=== PATIENT | male | born 1970 | race Caucasian/White ===

== ENCOUNTER → 2016-04-05 | Outpatient (REF) | payer MEDICAID ==
[~2016-04-05] MED LIST: /AUGM875TA; /WARF5TA; ADVAIR; BABY81CH; Coumadin; GEMF600T; LISI10TA4; METF500T4; PERC5TAB8; PRIL20CA; THERGRAN; ZEBE5TAB; ZYRT10TA6; albuterol; lovaza; mucinex
[2016-04-05 12:17] LABS: ANION GAP 11 MEQ/L (8-16); BLOOD UREA NITROGEN 12 MG/DL (7-18); CALCIUM LEVEL 8.8 MG/DL (8.5-10.1); CARBON DIOXIDE LEVEL 25 MEQ/L (21-32); CHLORIDE LEVEL 101 MEQ/L (98-107); CREATININE FOR GFR 0.77 MG/DL (0.70-1.30); GLOMERULAR FILTRATION RATE > 60.0 (>60); GLUCOSE, FASTING 240 MG/DL (70-105); POTASSIUM SERUM 4.9 MEQ/L (3.5-5.1); SODIUM LEVEL 137 MEQ/L (136-145)
== END ==
LOC: M SFHCPLAZ 10:17
PROVIDERS: ATTEND Family Medicine
DX: E11.8 Type 2 diabetes mellitus with unspecified complications (principal)

== ENCOUNTER → 2016-05-03 | Outpatient (REF) | payer MEDICAID | LOC: M SFHCPLAZ 07:48 | PROVIDERS: ATTEND Family Medicine | DX: I69.30 Unspecified sequelae of cerebral infarction (principal); Z51.81 Encounter for therapeutic drug level monitoring; Z79.01 Long term (current) use of anticoagulants ==

== ENCOUNTER → 2016-07-13 | Outpatient (CLI) | payer MEDICAID ==
[2016-07-13 14:13] LABS: ANION GAP 7 MEQ/L (8-16); BLOOD UREA NITROGEN 10 MG/DL (7-18); CALCIUM LEVEL 8.7 MG/DL (8.5-10.1); CARBON DIOXIDE LEVEL 33 MEQ/L (21-32); CHLORIDE LEVEL 100 MEQ/L (98-107); CREATININE FOR GFR 0.67 MG/DL (0.70-1.30); GLOMERULAR FILTRATION RATE > 60.0 (>60); GLUCOSE, FASTING 142 MG/DL (70-105); POTASSIUM SERUM 4.4 MEQ/L (3.5-5.1); SODIUM LEVEL 140 MEQ/L (136-145)
== END ==
LOC: M SMT 08:22
PROVIDERS: ATTEND Family Medicine
DX: E11.8 Type 2 diabetes mellitus with unspecified complications (principal)

== ENCOUNTER → 2016-10-17 | Outpatient (REF) | payer MEDICAID | LOC: M SFHCPLAZ 08:53 | PROVIDERS: ATTEND Family Medicine | DX: Z86.718 Personal history of other venous thrombosis and embolism (principal); Z79.01 Long term (current) use of anticoagulants; Z51.81 Encounter for therapeutic drug level monitoring; E11.8 Type 2 diabetes mellitus with unspecified complications ==

== ENCOUNTER → 2016-10-20 | Outpatient (CLI) | payer MEDICAID | LOC: M SMT 08:46 | PROVIDERS: ATTEND Family Medicine | DX: E11.8 Type 2 diabetes mellitus with unspecified complications (principal) ==

== ENCOUNTER → 2016-10-20 | Outpatient (CLI) | payer MEDICAID ==
[2016-10-20 13:58] LABS: ALBUMIN 3.4 GM/DL (3.2-5.2); ANION GAP 7 MEQ/L (8-16); BLOOD UREA NITROGEN 7 MG/DL (7-18); CALCIUM LEVEL 8.7 MG/DL (8.5-10.1); CARBON DIOXIDE LEVEL 31 MEQ/L (21-32); CHLORIDE LEVEL 101 MEQ/L (98-107); CREATININE FOR GFR 0.79 MG/DL (0.70-1.30); GLOMERULAR FILTRATION RATE > 60.0 (>60); GLUCOSE, FASTING 234 MG/DL (70-105); PHOSPHORUS LEVEL 3.7 MG/DL (2.5-4.9); POTASSIUM SERUM 4.7 MEQ/L (3.5-5.1); SODIUM LEVEL 139 MEQ/L (136-145)
== END ==
LOC: M SMT 08:43
PROVIDERS: ATTEND Internal Medicine Nephrology
DX: N18.1 Chronic kidney disease, stage 1 (principal); E11.22 Type 2 diabetes mellitus with diabetic chronic kidney disease

== ENCOUNTER → 2016-10-26 | Outpatient (CLI) | payer MEDICAID ==
[2016-10-26 14:05] LABS: FREE T4 1.07 NG/DL (0.76-1.46)
== END ==
LOC: M SMT 10:02
PROVIDERS: ATTEND Internal Medicine Nephrology
DX: R00.0 Tachycardia, unspecified (principal)

== ENCOUNTER → 2017-02-02 | Outpatient (REF) | payer MEDICAID ==
[2017-02-02 12:06] LABS: ANION GAP 11 MEQ/L (8-16); BLOOD UREA NITROGEN 13 MG/DL (7-18); CALCIUM LEVEL 8.7 MG/DL (8.5-10.1); CARBON DIOXIDE LEVEL 29 MEQ/L (21-32); CHLORIDE LEVEL 102 MEQ/L (98-107); CREATININE FOR GFR 0.66 MG/DL (0.70-1.30); GLOMERULAR FILTRATION RATE > 60.0 (>60); GLUCOSE, FASTING 197 MG/DL (70-105); POTASSIUM SERUM 4.9 MEQ/L (3.5-5.1); SODIUM LEVEL 142 MEQ/L (136-145)
== END ==
LOC: M SFHCPLAZ 08:45
PROVIDERS: ATTEND Family Medicine
DX: E11.8 Type 2 diabetes mellitus with unspecified complications (principal)

== ENCOUNTER → 2017-04-06 | Outpatient (CLI) | payer MEDICAID | LOC: M RAD 16:10 | DX: J06.9 Acute upper respiratory infection, unspecified (principal); B97.89 Other viral agents as the cause of diseases classified elsewhere; R00.0 Tachycardia, unspecified ==

== ENCOUNTER → 2017-05-26 | Outpatient (CLI) | payer MEDICAID | LOC: M RAD 10:03 | DX: J06.9 Acute upper respiratory infection, unspecified (principal) | CPT/HCPCS: 71046 ==

== ENCOUNTER → 2017-06-12 | Outpatient (CLI) | payer MEDICAID ==
[2017-06-12 13:49] LABS: ESTIMATED AVERAGE GLUCOSE 203 MG/DL (60-110); HEMOGLOBIN A1c 8.7 %
[2017-06-12 14:04] LABS: ANION GAP 9 MEQ/L (8-16); BLOOD UREA NITROGEN 8 MG/DL (7-18); CALCIUM LEVEL 8.7 MG/DL (8.5-10.1); CARBON DIOXIDE LEVEL 31 MEQ/L (21-32); CHLORIDE LEVEL 100 MEQ/L (98-107); GLOMERULAR FILTRATION RATE > 60.0 (>60); GLUCOSE, FASTING 163 MG/DL (70-100); POTASSIUM SERUM 4.9 MEQ/L (3.5-5.1); SODIUM LEVEL 140 MEQ/L (136-145)
== END ==
LOC: M SMT 08:56
DX: E11.8 Type 2 diabetes mellitus with unspecified complications (principal)
CPT/HCPCS: 83036

== ENCOUNTER → 2017-06-12 | Outpatient (CLI) | payer MEDICAID ==
[2017-06-12 13:31] LABS: BASO % 0.3 % (0.0-1.0); EOS # 0.2 10^3/uL (0.0-0.50); EOS % 1.7 % (0.0-3.0); HEMATOCRIT 51.8 % (42.0-52.0); HEMOGLOBIN 16.4 g/dl (14.0-18.0); IMMATURE GRANULOCYTE % 0.3 % (0-3.0); LYMPH # 3.1 10^3/uL (1.5-4.5); LYMPH % 23.5 % (24.0-44.0); MEAN CORPUSCULAR HEMOGLOBIN 29.3 pg (27.0-33.0); MEAN CORPUSCULAR HGB CONC 31.7 g/dl (32.0-36.5); MEAN CORPUSCULAR VOLUME 92.7 fl (80.0-96.0); MONO % 7.6 % (0.0-5.0); NEUTROPHILS # 8.8 10^3/uL (1.8-7.7); NEUTROPHILS % 66.6 % (36.0-66.0); PLATELET COUNT, AUTOMATED 263 10^3/uL (150-450); RED BLOOD COUNT 5.59 10^6/uL (4.30-6.10); RED CELL DISTRIBUTION WIDTH 14.3 % (11.5-14.5); WHITE BLOOD COUNT 13.2 10^3/uL (4.0-10.0)
[2017-06-12 13:35] LABS: APPEARANCE, URINE CLEAR (CLEAR); BACTERIA, URINE AUTO NEGATIVE (NEGATIVE); BILIRUBIN, URINE AUTO NEGATIVE (NEGATIVE); BLOOD, URINE BLOOD 1+ (NEGATIVE); COLOR, URINE YELLOW (YELLOW); GLUCOSE, URINE (UA) AUTO NEGATIVE (NEGATIVE); KETONE, URINE AUTO NEGATIVE (NEGATIVE); LEUKOCYTE ESTERASE, URINE AUTO NEGATIVE (NEGATIVE); MUCUS, URINE SMALL (NEGATIVE); NITRITE, URINE AUTO NEGATIVE (NEGATIVE); PROTEIN, URINE AUTO 2+ mg/dL (NEGATIVE); RBC, URINE AUTO 2 /HPF (0-3); SPECIFIC GRAVITY URINE AUTO 1.014 (1.002-1.035); SQUAMOUS EPITHELIAL CELL UR AU 0 /HPF (0-6); UROBILINOGEN, URINE AUTO 0.2 mg/dL (0.0-2.0); WBC, URINE AUTO 4 /HPF (0-3)
[2017-06-12 13:49] LABS: TOTAL 25(OH) VITAMIN D 34.4 NG/ML (30.0-100.0)
[2017-06-12 14:00] LABS: ALBUMIN 3.3 GM/DL (3.2-5.2); ANION GAP 7 MEQ/L (8-16); BLOOD UREA NITROGEN 8 MG/DL (7-18); CALCIUM LEVEL 8.5 MG/DL (8.5-10.1); CARBON DIOXIDE LEVEL 31 MEQ/L (21-32); CHLORIDE LEVEL 102 MEQ/L (98-107); CREATININE FOR GFR 0.71 MG/DL (0.70-1.30); GLOMERULAR FILTRATION RATE > 60.0 (>60); GLUCOSE, FASTING 164 MG/DL (70-100); MAGNESIUM LEVEL 1.7 MG/DL (1.8-2.4); POTASSIUM SERUM 4.9 MEQ/L (3.5-5.1); SODIUM LEVEL 140 MEQ/L (136-145); URIC ACID 5.3 MG/DL (3.5-7.2)
[2017-06-12 14:34] LABS: CREATININE, URINE 97.8 MG/DL; MAU/CREAT RATIO 799.5 MCG/MG (0.0-30.0)
== END ==
LOC: M SMT 08:59
DX: E11.22 Type 2 diabetes mellitus with diabetic chronic kidney disease (principal); N18.1 Chronic kidney disease, stage 1; E55.9 Vitamin D deficiency, unspecified; I12.9 Hypertensive chronic kidney disease with stage 1 through stage 4 chronic kidney disease, or unspecified chronic kidney disease
CPT/HCPCS: 83735

== ENCOUNTER → 2017-08-03 | Outpatient (REF) | payer MEDICAID | LOC: M SFHCPLAZ 13:12 | DX: L02.415 Cutaneous abscess of right lower limb (principal) | CPT/HCPCS: 87186 ==

== ENCOUNTER 2017-09-12 10:33 | Inpatient (IN) | payer MEDICAID ==
[~2017-09-12 10:33] MED LIST changes: -/AUGM875TA; -/WARF5TA; -ADVAIR; -BABY81CH; -Coumadin; +ENOXAPARIN 40 MG/0.4 ML SYRINGE (J1650) SC; -GEMF600T; -LISI10TA4; -METF500T4; -PERC5TAB8; -PRIL20CA; -THERGRAN; -ZEBE5TAB; -ZYRT10TA6; -albuterol; -lovaza; -mucinex
[2017-09-12 11:17] LABS: BASO % 0.3 % (0.0-1.0); EOS # 0.2 10^3/uL (0.0-0.50); EOS % 1.3 % (0.0-3.0); HEMATOCRIT 52.4 % (42.0-52.0); HEMOGLOBIN 16.2 g/dl (13.5-17.5); IMMATURE GRANULOCYTE % 0.5 % (0-3.0); LYMPH # 3.5 10^3/uL (1.5-4.5); LYMPH % 25.1 % (24.0-44.0); MEAN CORPUSCULAR HEMOGLOBIN 28.2 pg (27.0-33.0); MEAN CORPUSCULAR HGB CONC 30.9 g/dl (32.0-36.5); MEAN CORPUSCULAR VOLUME 91.3 fl (80.0-96.0); NEUTROPHILS # 9.1 10^3/uL (1.8-7.7); NEUTROPHILS % 65.8 % (36.0-66.0); PLATELET COUNT, AUTOMATED 246 10^3/uL (150-450); RED BLOOD COUNT 5.74 10^6/uL (4.30-6.10); RED CELL DISTRIBUTION WIDTH 14.6 % (11.5-14.5); WHITE BLOOD COUNT 13.8 10^3/uL (4.0-10.0)
[2017-09-12] MEDS: methylPREDNISolone INJ 125 MG/2 ML VIAL (J2930) IV ×2 (11:18→21:08)
[2017-09-12 11:19] LABS: SUSPECT SAMPLE POS FLAG
[2017-09-12 11:21] LABS: PROTHROMBIN TIME 28.9 SECONDS (12.4-14.5)
[2017-09-12] MEDS: IPRATROPIUM 0.5MG/ALBUTEROL 2.5MG INH SOL UD 3ML (DUONEB)(J7620) NEB ×5 (11:26→20:00)
[2017-09-12 11:31] LABS: ABG TOTAL CO2 35.2 MEQ/L (22.0-29.0); ABG pH (ARTERIAL) 7.336 UNITS (7.350-7.450); ALBUMIN 2.9 GM/DL (3.2-5.2); ALBUMIN/GLOBULIN RATIO 0.66 (1.00-1.93); ALKALINE PHOSPHATASE 88 U/L (45-117); ALT/SGPT 60 U/L (12-78); ANION GAP 6 MEQ/L (8-16); AST/SGOT 26 U/L (7-37); BILIRUBIN,DIRECT 0.1 MG/DL (0.0-0.2); BILIRUBIN,TOTAL 0.3 MG/DL (0.2-1.0); BLOOD UREA NITROGEN 12 MG/DL (7-18); CALCIUM LEVEL 7.9 MG/DL (8.5-10.1); CARBON DIOXIDE LEVEL 31 MEQ/L (21-32); CHLORIDE LEVEL 101 MEQ/L (98-107); CPK CREATINE PHOSPHOKINASE 306 U/L (39-308); CREATININE FOR GFR 0.74 MG/DL (0.70-1.30); GLOMERULAR FILTRATION RATE > 60.0 (>60); GLUCOSE, FASTING 266 MG/DL (70-100); POTASSIUM SERUM 4.4 MEQ/L (3.5-5.1); SODIUM LEVEL 138 MEQ/L (136-145); TOTAL PROTEIN 7.3 GM/DL (6.4-8.2); TROPONIN I 0.03 NG/ML (< 0.10)
[2017-09-12 11:32] LABS: ABG BASE EXCESS 4.9 (-2.0-2.0); ABG HCO3 33.2 MEQ/L (22.0-26.0); ABG O2 SATURATION 84.5 % (95.0-99.0); ABG STANDARD HCO3 28.4 MEQ/L (22.0-26.0)
[2017-09-12 11:36] LABS: CK-MB VALUE MASS 9.1 NG/ML (<3.6); MB/CK RELATIVE INDEX 2.97 (< OR =4); NT-PRO BNP 147 PG/ML (<125)
[2017-09-12 11:37] LABS: LACTIC ACID SEPSIS PROTOCOL 1.7 MMOL/L (0.4-2.0)
[2017-09-12 11:43] LABS: ABG PARTIAL PRESSURE CO2 63.6 mmHg (35.0-45.0); ABG PARTIAL PRESSURE O2 49.9 mmHg (75.0-100.0)
[2017-09-12] MEDS: MOXIFLOXACIN HCL 400 MG in APPROPRIATE DILUENT 1 EA IV (12:54)
[2017-09-12] MEDS ORDERED: IPRATROPIUM 0.5MG/ALBUTEROL 2.5MG INH SOL UD 3ML (DUONEB)(J7620) NEB (13:30)
[2017-09-12] MEDS ORDERED: ONDANSETRON 4MG/2ML VIAL (J2405) IV (13:30)
[2017-09-12] MEDS ORDERED: zolPIDEM TARTRATE 5 MG TAB PO (13:30)
[2017-09-12] MEDS ORDERED: ACETAMINOPHEN 500 MG TAB PO (13:30)
[2017-09-12] MEDS ORDERED: GLUCOSE 4 GM CHEW TABLET PO (14:15)
[2017-09-12] MEDS ORDERED: DEXTROSE 50% 50 ML SYRINGE IV (14:15)
[2017-09-12] MEDS ORDERED: GLUCAGON FOR INJ 1 MG VIAL (J1610) SC (14:15)
[2017-09-12 16:01] LABS: BEDSIDE GLUCOSE 445 MG/DL (70-105)
[2017-09-12] MEDS: metFORMIN (GLUCOPHAGE) 1000 MG TABLET PO (17:15)
[2017-09-12] MEDS: PANTOPRAZOLE 40MG TAB (PROTONIX) PO (17:16)
[2017-09-12] MEDS: HumaLOG INSULIN (NovoLOG) PER UNIT SC (17:16)
[2017-09-12 20:23] LABS: BEDSIDE GLUCOSE 366 MG/DL (70-105)
[2017-09-12] MEDS: ATORVASTATIN 20 MG TAB PO (21:08)
[2017-09-12] MEDS: LEVEMIR (INSULIN DETEMIR) 1 UNITS/0.01ML SC (21:09)
[2017-09-13] MEDS: IPRATROPIUM 0.5MG/ALBUTEROL 2.5MG INH SOL UD 3ML (DUONEB)(J7620) NEB ×7 (00:07→23:25)
[2017-09-13] MEDS: methylPREDNISolone INJ 125 MG/2 ML VIAL (J2930) IV ×3 (04:10→20:55)
[2017-09-13] MEDS: MOXIFLOXACIN 400 MG TAB PO (05:40)
[2017-09-13 05:59] LABS: BASO % 0.1 % (0.0-1.0); HEMATOCRIT 51.3 % (42.0-52.0); HEMOGLOBIN 15.9 g/dl (13.5-17.5); IMMATURE GRANULOCYTE % 0.5 % (0-3.0); LYMPH # 1.2 10^3/uL (1.5-4.5); LYMPH % 9.1 % (24.0-44.0); MEAN CORPUSCULAR HEMOGLOBIN 28.2 pg (27.0-33.0); MEAN CORPUSCULAR VOLUME 91.1 fl (80.0-96.0); MONO # 0.2 10^3/uL (0.0-0.8); MONO % 1.2 % (0.0-5.0); NEUTROPHILS # 11.6 10^3/uL (1.8-7.7); NEUTROPHILS % 89.1 % (36.0-66.0); PLATELET COUNT, AUTOMATED 235 10^3/uL (150-450); RED BLOOD COUNT 5.63 10^6/uL (4.30-6.10); RED CELL DISTRIBUTION WIDTH 14.2 % (11.5-14.5)
[2017-09-13 06:29] LABS: ALBUMIN 2.8 GM/DL (3.2-5.2); ALBUMIN/GLOBULIN RATIO 0.65 (1.00-1.93); ALKALINE PHOSPHATASE 82 U/L (45-117); ALT/SGPT 55 U/L (12-78); ANION GAP 5 MEQ/L (8-16); AST/SGOT 18 U/L (7-37); BILIRUBIN,TOTAL 0.5 MG/DL (0.2-1.0); BLOOD UREA NITROGEN 16 MG/DL (7-18); CALCIUM LEVEL 7.8 MG/DL (8.5-10.1); CARBON DIOXIDE LEVEL 35 MEQ/L (21-32); CHLORIDE LEVEL 99 MEQ/L (98-107); CREATININE FOR GFR 0.68 MG/DL (0.70-1.30); GLOMERULAR FILTRATION RATE > 60.0 (>60); GLUCOSE, FASTING 335 MG/DL (70-100); MAGNESIUM LEVEL 1.7 MG/DL (1.8-2.4); SODIUM LEVEL 139 MEQ/L (136-145); TOTAL PROTEIN 7.1 GM/DL (6.4-8.2)
[2017-09-13 06:37] LABS: POTASSIUM SERUM 5.4 MEQ/L (3.5-5.1)
[2017-09-13] MEDS: TIOTROPIUM INHALER/CAPSULE (SPIRIVA) INH (08:23)
[2017-09-13] MEDS: HumaLOG INSULIN (NovoLOG) PER UNIT SC ×5 (08:54→20:56)
[2017-09-13] MEDS: LEVEMIR (INSULIN DETEMIR) 1 UNITS/0.01ML SC ×2 (08:55→20:56)
[2017-09-13] MEDS: metFORMIN (GLUCOPHAGE) 1000 MG TABLET PO (08:55)
[2017-09-13] MEDS: MULTIVITAMINS/MINERALS THERAP 1 TAB PO (08:55)
[2017-09-13] MEDS: LISINOPRIL 10 MG TAB PO (08:55)
[2017-09-13] MEDS: PANTOPRAZOLE 40MG TAB (PROTONIX) PO (08:55)
[2017-09-13] MEDS ORDERED: ENOXAPARIN 40 MG/0.4 ML SYRINGE (J1650) SC (09:00)
[2017-09-13 10:45] LABS: INR 1.69; PROTHROMBIN TIME 20.4 SECONDS (12.4-14.5)
[2017-09-13 11:09] LABS: BEDSIDE GLUCOSE 377 MG/DL (70-105)
[2017-09-13] MEDS ORDERED: ISOVUE-370 76% 100ML VIAL (Q9967) As Ordered (16:32)
[2017-09-13] MEDS: WARFARIN SOD 2.5 MG TAB PO (17:49)
[2017-09-13] MEDS: WARFARIN SOD 5 MG TAB PO (17:49)
[2017-09-13 18:31] LABS: BEDSIDE GLUCOSE CONFIRMATION 632 MG/DL (LESS THAN 200)
[2017-09-13 19:52] LABS: BEDSIDE GLUCOSE 567 MG/DL (70-105)
[2017-09-13] MEDS: ATORVASTATIN 20 MG TAB PO (20:55)
[2017-09-13 23:42] LABS: BEDSIDE GLUCOSE 458 MG/DL (70-105)
[2017-09-14] MEDS: IPRATROPIUM 0.5MG/ALBUTEROL 2.5MG INH SOL UD 3ML (DUONEB)(J7620) NEB ×6 (04:00→23:19)
[2017-09-14] MEDS: methylPREDNISolone INJ 125 MG/2 ML VIAL (J2930) IV (04:56)
[2017-09-14] MEDS: MOXIFLOXACIN 400 MG TAB PO (05:20)
[2017-09-14] MEDS: TIOTROPIUM INHALER/CAPSULE (SPIRIVA) INH (07:23)
[2017-09-14 07:30] LABS: BEDSIDE GLUCOSE 334 MG/DL (70-105)
[2017-09-14] MEDS: PANTOPRAZOLE 40MG TAB (PROTONIX) PO (08:53)
[2017-09-14] MEDS: MULTIVITAMINS/MINERALS THERAP 1 TAB PO (08:53)
[2017-09-14] MEDS: HumaLOG INSULIN (NovoLOG) PER UNIT SC ×5 (08:55→21:38)
[2017-09-14] MEDS: LEVEMIR (INSULIN DETEMIR) 1 UNITS/0.01ML SC ×2 (08:55→21:38)
[2017-09-14] MEDS: NICOTINE 21MG/24HR 1 EA TRANSDERMAL TD (08:55)
[2017-09-14] MEDS: predniSONE 20 MG TAB PO (09:00)
[2017-09-14 09:42] LABS: BASO % 0.1 % (0.0-1.0); HEMATOCRIT 48.3 % (42.0-52.0); HEMOGLOBIN 15.5 g/dl (13.5-17.5); IMMATURE GRANULOCYTE % 0.6 % (0-3.0); LYMPH % 5.4 % (24.0-44.0); MEAN CORPUSCULAR HEMOGLOBIN 28.5 pg (27.0-33.0); MEAN CORPUSCULAR HGB CONC 32.1 g/dl (32.0-36.5); MEAN CORPUSCULAR VOLUME 88.8 fl (80.0-96.0); MONO # 0.6 10^3/uL (0.0-0.8); MONO % 3.3 % (0.0-5.0); NEUTROPHILS # 16.3 10^3/uL (1.8-7.7); NEUTROPHILS % 90.6 % (36.0-66.0); PLATELET COUNT, AUTOMATED 250 10^3/uL (150-450); RED BLOOD COUNT 5.44 10^6/uL (4.30-6.10); RED CELL DISTRIBUTION WIDTH 14.3 % (11.5-14.5)
[2017-09-14 09:50] LABS: INR 1.49; PROTHROMBIN TIME 18.4 SECONDS (12.4-14.5)
[2017-09-14 10:04] LABS: ALBUMIN 2.9 GM/DL (3.2-5.2); ALBUMIN/GLOBULIN RATIO 0.81 (1.00-1.93); ALKALINE PHOSPHATASE 74 U/L (45-117); ALT/SGPT 49 U/L (12-78); ANION GAP 8 MEQ/L (8-16); AST/SGOT 12 U/L (7-37); BILIRUBIN,TOTAL 0.5 MG/DL (0.2-1.0); BLOOD UREA NITROGEN 24 MG/DL (7-18); CALCIUM LEVEL 7.4 MG/DL (8.5-10.1); CARBON DIOXIDE LEVEL 34 MEQ/L (21-32); CHLORIDE LEVEL 96 MEQ/L (98-107); CREATININE FOR GFR 0.75 MG/DL (0.70-1.30); GLOMERULAR FILTRATION RATE > 60.0 (>60); GLUCOSE, FASTING 326 MG/DL (70-100); MAGNESIUM LEVEL 1.8 MG/DL (1.8-2.4); SODIUM LEVEL 138 MEQ/L (136-145); TOTAL PROTEIN 6.5 GM/DL (6.4-8.2)
[2017-09-14 11:35] LABS: BEDSIDE GLUCOSE 557 MG/DL (70-105)
[2017-09-14 11:44] LABS: BEDSIDE GLUCOSE 563 MG/DL (70-105)
[2017-09-14 16:31] LABS: BEDSIDE GLUCOSE 410 MG/DL (70-105)
[2017-09-14] MEDS: WARFARIN SOD 2.5 MG TAB PO (17:09)
[2017-09-14] MEDS: WARFARIN SOD 5 MG TAB PO (17:09)
[2017-09-14 20:39] LABS: BEDSIDE GLUCOSE 467 MG/DL (70-105)
[2017-09-14] MEDS: ATORVASTATIN 20 MG TAB PO (21:37)
[2017-09-15] MEDS: IPRATROPIUM 0.5MG/ALBUTEROL 2.5MG INH SOL UD 3ML (DUONEB)(J7620) NEB ×7 (04:00→23:12)
[2017-09-15] MEDS: MOXIFLOXACIN 400 MG TAB PO (05:35)
[2017-09-15 06:35] LABS: BASO % 0.1 % (0.0-1.0); EOS % 0.1 % (0.0-3.0); HEMOGLOBIN 16.4 g/dl (13.5-17.5); IMMATURE GRANULOCYTE % 0.6 % (0-3.0); INR 1.64; LYMPH # 3.3 10^3/uL (1.5-4.5); LYMPH % 20.6 % (24.0-44.0); MEAN CORPUSCULAR HEMOGLOBIN 28.9 pg (27.0-33.0); MEAN CORPUSCULAR HGB CONC 32.2 g/dl (32.0-36.5); MEAN CORPUSCULAR VOLUME 89.8 fl (80.0-96.0); MONO # 1.4 10^3/uL (0.0-0.8); MONO % 8.9 % (0.0-5.0); NEUTROPHILS % 69.7 % (36.0-66.0); PLATELET COUNT, AUTOMATED 249 10^3/uL (150-450); PROTHROMBIN TIME 19.9 SECONDS (12.4-14.5); RED BLOOD COUNT 5.68 10^6/uL (4.30-6.10); RED CELL DISTRIBUTION WIDTH 14.5 % (11.5-14.5); WHITE BLOOD COUNT 15.8 10^3/uL (4.0-10.0)
[2017-09-15 06:46] LABS: ALBUMIN 2.9 GM/DL (3.2-5.2); ALBUMIN/GLOBULIN RATIO 0.71 (1.00-1.93); ALKALINE PHOSPHATASE 73 U/L (45-117); ALT/SGPT 53 U/L (12-78); ANION GAP 4 MEQ/L (8-16); AST/SGOT 22 U/L (7-37); BILIRUBIN,TOTAL 0.4 MG/DL (0.2-1.0); BLOOD UREA NITROGEN 21 MG/DL (7-18); CALCIUM LEVEL 7.1 MG/DL (8.5-10.1); CARBON DIOXIDE LEVEL 35 MEQ/L (21-32); CHLORIDE LEVEL 100 MEQ/L (98-107); CREATININE FOR GFR 0.75 MG/DL (0.70-1.30); GLOMERULAR FILTRATION RATE > 60.0 (>60); GLUCOSE, FASTING 262 MG/DL (70-100); MAGNESIUM LEVEL 1.7 MG/DL (1.8-2.4); POTASSIUM SERUM 4.2 MEQ/L (3.5-5.1); SODIUM LEVEL 139 MEQ/L (136-145)
[2017-09-15] MEDS: TIOTROPIUM INHALER/CAPSULE (SPIRIVA) INH (08:14)
[2017-09-15] MEDS: NICOTINE 21MG/24HR 1 EA TRANSDERMAL TD (09:00)
[2017-09-15] MEDS: predniSONE 20 MG TAB PO (09:29)
[2017-09-15] MEDS: PANTOPRAZOLE 40MG TAB (PROTONIX) PO (09:30)
[2017-09-15] MEDS: MULTIVITAMINS/MINERALS THERAP 1 TAB PO (09:30)
[2017-09-15] MEDS: HumaLOG INSULIN (NovoLOG) PER UNIT SC ×4 (09:30→21:00)
[2017-09-15] MEDS: LEVEMIR (INSULIN DETEMIR) 1 UNITS/0.01ML SC ×2 (09:31→21:00)
[2017-09-15 11:50] LABS: BEDSIDE GLUCOSE 258 MG/DL (70-105)
[2017-09-15] MEDS: LISINOPRIL 10 MG TAB PO (12:54)
[2017-09-15 16:32] LABS: BEDSIDE GLUCOSE 548 MG/DL (70-105)
[2017-09-15 17:35] LABS: BEDSIDE GLUCOSE 586 MG/DL (70-105)
[2017-09-15] MEDS: WARFARIN SOD 5 MG TAB PO (18:07)
[2017-09-15] MEDS: WARFARIN SOD 2.5 MG TAB PO ×2 (18:07→18:08)
[2017-09-15 19:06] LABS: BEDSIDE GLUCOSE CONFIRMATION 541 MG/DL (LESS THAN 200)
[2017-09-15 20:16] LABS: BEDSIDE GLUCOSE 416 MG/DL (70-105)
[2017-09-15] MEDS: ATORVASTATIN 20 MG TAB PO (20:59)
[2017-09-16] MEDS: IPRATROPIUM 0.5MG/ALBUTEROL 2.5MG INH SOL UD 3ML (DUONEB)(J7620) NEB ×2 (03:59→08:05)
[2017-09-16 06:04] LABS: BASO % 0.1 % (0.0-1.0); EOS % 0.4 % (0.0-3.0); HEMATOCRIT 50.8 % (42.0-52.0); IMMATURE GRANULOCYTE % 0.4 % (0-3.0); LYMPH # 3.5 10^3/uL (1.5-4.5); LYMPH % 31.4 % (24.0-44.0); MEAN CORPUSCULAR HEMOGLOBIN 28.4 pg (27.0-33.0); MEAN CORPUSCULAR HGB CONC 31.5 g/dl (32.0-36.5); MEAN CORPUSCULAR VOLUME 90.1 fl (80.0-96.0); MONO # 1.2 10^3/uL (0.0-0.8); MONO % 10.3 % (0.0-5.0); NEUTROPHILS # 6.5 10^3/uL (1.8-7.7); NEUTROPHILS % 57.4 % (36.0-66.0); PLATELET COUNT, AUTOMATED 237 10^3/uL (150-450); RED BLOOD COUNT 5.64 10^6/uL (4.30-6.10); RED CELL DISTRIBUTION WIDTH 14.4 % (11.5-14.5); WHITE BLOOD COUNT 11.3 10^3/uL (4.0-10.0)
[2017-09-16 06:20] LABS: ALBUMIN 2.8 GM/DL (3.2-5.2); ALKALINE PHOSPHATASE 68 U/L (45-117); ALT/SGPT 63 U/L (12-78); ANION GAP 7 MEQ/L (8-16); AST/SGOT 26 U/L (7-37); BILIRUBIN,TOTAL 0.5 MG/DL (0.2-1.0); BLOOD UREA NITROGEN 19 MG/DL (7-18); CALCIUM LEVEL 7.2 MG/DL (8.5-10.1); CARBON DIOXIDE LEVEL 34 MEQ/L (21-32); CHLORIDE LEVEL 103 MEQ/L (98-107); CREATININE FOR GFR 0.66 MG/DL (0.70-1.30); GLOMERULAR FILTRATION RATE > 60.0 (>60); GLUCOSE, FASTING 213 MG/DL (70-100); MAGNESIUM LEVEL 1.8 MG/DL (1.8-2.4); POTASSIUM SERUM 3.9 MEQ/L (3.5-5.1); SODIUM LEVEL 144 MEQ/L (136-145); TOTAL PROTEIN 6.8 GM/DL (6.4-8.2)
[2017-09-16 06:27] LABS: INR 1.94; PROTHROMBIN TIME 22.8 SECONDS (12.4-14.5)
[2017-09-16] MEDS: MOXIFLOXACIN 400 MG TAB PO (06:41)
[2017-09-16] MEDS: TIOTROPIUM INHALER/CAPSULE (SPIRIVA) INH (08:05)
[2017-09-16] MEDS: predniSONE 20 MG TAB PO (08:59)
[2017-09-16] MEDS: MULTIVITAMINS/MINERALS THERAP 1 TAB PO (08:59)
[2017-09-16] MEDS: LISINOPRIL 10 MG TAB PO (08:59)
[2017-09-16] MEDS: PANTOPRAZOLE 40MG TAB (PROTONIX) PO (08:59)
[2017-09-16] MEDS: HumaLOG INSULIN (NovoLOG) PER UNIT SC (09:00)
[2017-09-16] MEDS: LEVEMIR (INSULIN DETEMIR) 1 UNITS/0.01ML SC (09:00)
[2017-09-16] MEDS: NICOTINE 21MG/24HR 1 EA TRANSDERMAL TD (09:00)
[2017-09-18 11:42] LABS: BEDSIDE GLUCOSE > 600 MG/DL (70-105)
[2017-09-18 11:42] LABS: BEDSIDE GLUCOSE > 600 MG/DL (70-105)
== END 2017-09-16 12:15 | disposition home health service (06) | DRG 133 ==
LOC: M ED 10:33 → M ED INP 13:23 → M MSPAV 15:35
DX: J96.21 Acute and chronic respiratory failure with hypoxia (principal); Z99.81 Dependence on supplemental oxygen; J44.9 Chronic obstructive pulmonary disease, unspecified; E66.01 Morbid (severe) obesity due to excess calories; Z68.43 Body mass index [BMI] 50.0-59.9, adult; I10 Essential (primary) hypertension; E11.9 Type 2 diabetes mellitus without complications; G47.33 Obstructive sleep apnea (adult) (pediatric); T38.0X5A Adverse effect of glucocorticoids and synthetic analogues, initial encounter; F17.210 Nicotine dependence, cigarettes, uncomplicated; E78.5 Hyperlipidemia, unspecified; Z86.718 Personal history of other venous thrombosis and embolism; Z79.4 Long term (current) use of insulin; Z79.52 Long term (current) use of systemic steroids; Z79.899 Other long term (current) drug therapy; Z79.01 Long term (current) use of anticoagulants; Z91.19 Patient's noncompliance with other medical treatment and regimen

== ENCOUNTER → 2017-11-14 | Outpatient (REF) | payer MEDICAID | LOC: M SFHCPLAZ 09:02 | DX: Z79.01 Long term (current) use of anticoagulants (principal); Z86.718 Personal history of other venous thrombosis and embolism ==

== ENCOUNTER → 2017-12-31 | Outpatient (REF) | payer MEDICAID ==
[2017-12-31 18:34] LABS: ALBUMIN 3.6 GM/DL (3.2-5.2); ANION GAP 8 MEQ/L (8-16); BASO % 0.3 % (0.0-1.0); BLOOD UREA NITROGEN 10 MG/DL (7-18); CALCIUM LEVEL 8.6 MG/DL (8.5-10.1); CARBON DIOXIDE LEVEL 32 MEQ/L (21-32); CHLORIDE LEVEL 102 MEQ/L (98-107); CREATININE FOR GFR 0.64 MG/DL (0.70-1.30); EOS # 0.3 10^3/uL (0.0-0.50); EOS % 1.8 % (0.0-3.0); GLOMERULAR FILTRATION RATE > 60.0 (>60); GLUCOSE, FASTING 109 MG/DL (70-100); HEMOGLOBIN 15.4 g/dl (13.5-17.5); IMMATURE GRANULOCYTE % 0.5 % (0-3.0); LYMPH # 4.5 10^3/uL (1.5-4.5); MEAN CORPUSCULAR HEMOGLOBIN 29.6 pg (27.0-33.0); MEAN CORPUSCULAR HGB CONC 32.8 g/dl (32.0-36.5); MEAN CORPUSCULAR VOLUME 90.4 fl (80.0-96.0); MONO # 1.1 10^3/uL (0.0-0.8); MONO % 7.8 % (0.0-5.0); NEUTROPHILS # 8.1 10^3/uL (1.8-7.7); NEUTROPHILS % 57.6 % (36.0-66.0); PHOSPHORUS LEVEL 3.7 MG/DL (2.5-4.9); PLATELET COUNT, AUTOMATED 279 10^3/uL (150-450); POTASSIUM SERUM 4.4 MEQ/L (3.5-5.1); SODIUM LEVEL 142 MEQ/L (136-145); WHITE BLOOD COUNT 14.1 10^3/uL (4.0-10.0)
[2017-12-31 18:43] LABS: APPEARANCE, URINE HAZY (CLEAR); BACTERIA, URINE AUTO NEGATIVE (NEGATIVE); BILIRUBIN, URINE AUTO NEGATIVE (NEGATIVE); BLOOD, URINE BLOOD NEGATIVE (NEGATIVE); COLOR, URINE AMBER (YELLOW); GLUCOSE, URINE (UA) AUTO NEGATIVE (NEGATIVE); KETONE, URINE AUTO NEGATIVE (NEGATIVE); LEUKOCYTE ESTERASE, URINE AUTO NEGATIVE (NEGATIVE); MUCUS, URINE SMALL (NEGATIVE); NITRITE, URINE AUTO NEGATIVE (NEGATIVE); PROTEIN, URINE AUTO 3+ mg/dL (NEGATIVE); RBC, URINE AUTO 1 /HPF (0-3); SPECIFIC GRAVITY URINE AUTO 1.024 (1.002-1.035); SQUAMOUS EPITHELIAL CELL UR AU 0 /HPF (0-6); UROBILINOGEN, URINE AUTO 0.2 mg/dL (0.0-2.0); WBC, URINE AUTO 2 /HPF (0-3)
[2017-12-31 18:53] LABS: ESTIMATED AVERAGE GLUCOSE 192 MG/DL (60-110); HEMOGLOBIN A1c 8.3 %
[2017-12-31 19:18] LABS: MAU/CREAT RATIO 934.9 MCG/MG (0.0-30.0)
== END ==
LOC: M SFHCPLAZ 14:47
DX: E11.21 Type 2 diabetes mellitus with diabetic nephropathy (principal)

== ENCOUNTER → 2018-01-21 | Outpatient (REF) | payer MEDICAID | LOC: M SFHCPLAZ 12:47 | DX: R05 Cough (principal) | CPT/HCPCS: 87184 ==

== ENCOUNTER → 2018-04-08 | Outpatient (REF) | payer MEDICAID ==
[~2018-04-08] MED LIST changes: +/AUGM875TA; +/WARF5TA; +ADVAIR; +ALBU83IN INH; +ALBU83IN NEB; +ATOR80TA59 PO; +AVEL1TAB3 PO; +BABY81CH; +COUM10TA PO; +Coumadin; +DRIS50003 PO; -ENOXAPARIN 40 MG/0.4 ML SYRINGE (J1650) SC; +FLON1SPR; +FLON1SPR NARES; +GEMF600T; +INSULANT SC; +LANTINJ4 SC; +LIPI80TA PO; +LISI10TA4; +LISI10TA4 PO; +METF10004 PO; +METF500T4; +MUCI600T37 PO; +PERC5TAB8; +PRED10PA PO; +PRED10TA2 PO; +PRIL20CA; +PROAAER10 INH; +SPIR1CAP INH; +THERGRAN; +VICT18IN SC; +VITA50005 PO; +VITMTA PO; +ZEBE5TAB; +ZYRT10TA6; +albuterol; +lovaza; +mucinex
[2018-04-08 14:07] LABS: BASO % 0.2 % (0.0-1.0); EOS # 0.2 10^3/uL (0.0-0.50); EOS % 1.6 % (0.0-3.0); HEMOGLOBIN 15.7 g/dl (13.5-17.5); LYMPH # 3.3 10^3/uL (1.5-4.5); LYMPH % 26.7 % (24.0-44.0); MEAN CORPUSCULAR HEMOGLOBIN 29.4 pg (27.0-33.0); MEAN CORPUSCULAR VOLUME 91.8 fl (80.0-96.0); MONO % 7.8 % (0.0-5.0); NEUTROPHILS # 7.9 10^3/uL (1.8-7.7); NEUTROPHILS % 63.4 % (36.0-66.0); PLATELET COUNT, AUTOMATED 269 10^3/uL (150-450); RED BLOOD COUNT 5.34 10^6/uL (4.30-6.10); WHITE BLOOD COUNT 12.5 10^3/uL (4.0-10.0)
[2018-04-08 14:11] LABS: ALBUMIN 3.4 GM/DL (3.2-5.2); ALT/SGPT 39 U/L (12-78); BILIRUBIN,TOTAL 0.4 MG/DL (0.2-1.0); BLOOD UREA NITROGEN 13 MG/DL (7-18); CALCIUM LEVEL 8.7 MG/DL (8.5-10.1); CARBON DIOXIDE LEVEL 31 MEQ/L (21-32); CHLORIDE LEVEL 96 MEQ/L (98-107); CREATININE FOR GFR 0.72 MG/DL (0.70-1.30); GLOMERULAR FILTRATION RATE > 60.0 (>60); GLUCOSE, FASTING 224 MG/DL (70-100); POTASSIUM SERUM 4.1 MEQ/L (3.5-5.1); SODIUM LEVEL 138 MEQ/L (136-145)
[2018-04-08 14:14] LABS: INR 1.6; PROTHROMBIN TIME 19.3 SECONDS (12.1-14.4)
[2018-04-08 14:51] LABS: HEMOGLOBIN A1c 9.9 %
== END ==
LOC: M SFHCPLAZ 10:54
PROVIDERS: ATTEND Internal Medicine
DX: Z51.81 Encounter for therapeutic drug level monitoring (principal); Z79.899 Other long term (current) drug therapy; J06.9 Acute upper respiratory infection, unspecified; E11.21 Type 2 diabetes mellitus with diabetic nephropathy

== ENCOUNTER 2018-05-06 15:25 | Inpatient (IN) | payer MEDICAID ==
[~2018-05-06] VITALS: Ht 157.5 cm; Wt 139.0 kg
[~2018-05-06 15:25] MED LIST changes: -FLON1SPR
[2018-05-06] MEDS ORDERED: JANU100T PO (15:40)
[2018-05-06] MEDS ORDERED: WARF-18 PO (15:40)
[2018-05-06] MEDS ORDERED: VITA50005 (15:40)
[2018-05-06] MEDS ORDERED: WARF-22 PO (15:40)
[2018-05-06 16:18] LABS: BASO % 0.2 % (0.0-1.0); EOS # 0.1 10^3/uL (0.0-0.50); HEMATOCRIT 46.2 % (42.0-52.0); HEMOGLOBIN 14.3 g/dl (13.5-17.5); LYMPH # 2.5 10^3/uL (1.5-4.5); LYMPH % 23.4 % (24.0-44.0); MEAN CORPUSCULAR HEMOGLOBIN 29.4 pg (27.0-33.0); MEAN CORPUSCULAR VOLUME 94.9 fl (80.0-96.0); MONO # 0.7 10^3/uL (0.0-0.8); MONO % 6.3 % (0.0-5.0); NEUTROPHILS # 7.5 10^3/uL (1.8-7.7); NEUTROPHILS % 68.8 % (36.0-66.0); PLATELET COUNT, AUTOMATED 251 10^3/uL (150-450); RED BLOOD COUNT 4.87 10^6/uL (4.30-6.10); WHITE BLOOD COUNT 10.8 10^3/uL (4.0-10.0)
[2018-05-06 16:30] LABS: INR 1.71; PROTHROMBIN TIME 20.4 SECONDS (12.1-14.4)
[2018-05-06 16:48] LABS: ALBUMIN 3.2 GM/DL (3.2-5.2); ALT/SGPT 50 U/L (12-78); BILIRUBIN,DIRECT 0.1 MG/DL (0.0-0.2); BILIRUBIN,TOTAL 0.3 MG/DL (0.2-1.0); BLOOD UREA NITROGEN 9 MG/DL (7-18); CALCIUM LEVEL 8.1 MG/DL (8.5-10.1); CARBON DIOXIDE LEVEL 40 MEQ/L (21-32); CHLORIDE LEVEL 94 MEQ/L (98-107); CPK CREATINE PHOSPHOKINASE 446 U/L (39-308); CREATININE FOR GFR 0.77 MG/DL (0.70-1.30); GLOMERULAR FILTRATION RATE > 60.0 (>60); GLUCOSE, FASTING 286 MG/DL (70-100); NT-PRO BNP 40 PG/ML (<125); POTASSIUM SERUM 4.3 MEQ/L (3.5-5.1); SODIUM LEVEL 137 MEQ/L (136-145); TOTAL PROTEIN 7.1 GM/DL (6.4-8.2); TROPONIN I < 0.02 NG/ML (< 0.10)
[2018-05-06] MEDS ORDERED: IPRATROPIUM 0.5MG/ALBUTEROL 2.5MG INH SOL UD 3ML (DUONEB)(J7620) NEB ONE (17:00)
[2018-05-06] MEDS ORDERED: ISOVUE-370 76% 100ML VIAL (Q9967) As Ordered ONE (17:11)
[2018-05-06 17:30] LABS: LIPASE 134 U/L (73-393)
[2018-05-06] MEDS ORDERED: methylPREDNISolone INJ 125 MG/2 ML VIAL (J2930) IV ONE (18:15)
--- NOTE | 2018-05-06 18:29 | REP ---
PORTABLE CHEST: AP portable view of the chest is performed and compared to prior study of 09/12/2017. There is no change since the prior exam. There is cardiomegaly. There are increased interstitial opacities bilaterally appearing similar to prior exam. Mediastinal silhouette is unchanged. IMPRESSION: Cardiomegaly and increased interstitial opacities bilaterally appearing similar to the prior study of 09/12/2017. Electronically Signed by Jarad Cooney MD 05/07/2018 10:30 A
[2018-05-06] MEDS ORDERED: ACETAMINOPHEN TAB 650MG DOSE (2X325MG) PO PRN (19:45)
[2018-05-06] MEDS ORDERED: DEXTROSE 50% 50 ML SYRINGE IV PRN (19:45)
[2018-05-06] MEDS ORDERED: GLUCOSE 4 GM CHEW TABLET PO PRN (19:45)
[2018-05-06] MEDS ORDERED: GLUCAGON FOR INJ 1 MG VIAL (J1610) SC PRN (19:45)
[2018-05-06] MEDS ORDERED: IPRATROPIUM 0.02% SOLN 0.5MG/2.5 ML NEB INH PRN (19:45)
[2018-05-06] MEDS ORDERED: LEVALBUTEROL 1.25 MG/0.5 ML CONCENTRATE NEB INH PRN (19:45)
[2018-05-06] MEDS ORDERED: SYMB16INH INH (19:51)
[2018-05-06] MEDS ORDERED: COUM1TAB17 PO (19:51)
[2018-05-06] MEDS ORDERED: MUCI600T31 PO (19:55)
[2018-05-06] MEDS ORDERED: PEPT262S PO (19:55)
[2018-05-06] MEDS ORDERED: APAP500T10 PO (19:55)
[2018-05-06] MEDS ORDERED: AZITHROMYCIN INJ 500 MG, VIAL MATE ADAPTER 1 EACH in D5W 250 ML IV ONE (21:00)
[2018-05-06] MEDS ORDERED: HumaLOG INSULIN (NovoLOG) PER UNIT SC SCH (21:00)
--- NOTE | 2018-05-06 21:23 | HPEPDOC ---
[facility] Medical History & Physical Date of Admission May 06, 2018 Primary Care Physician: A Other Provider Admitting/dictating: Bob Pro M.D. Attending Physician: DEANDRE TRAMMELL MD History and Physical CHIEF COMPLAINT: Shortness of breath HISTORY OF PRESENT ILLNESS: Patient is a 47-year-old man. He has history of COPD on home oxygen 2-3 L. He also uses CPAP at night, diabetes, hypertension, hyperlipidemia, DVT on Coumadin, morbid obesity and multiple CVAs in the past. Comes in complaining of 2 weeks history of progressively worsening shortness of breath associated with cough productive of whitish sputum. He denies any fever, chills, no chest pains, no palpitations. He denies any recent sick contacts. He has used [id number] medication for cough, but with little or no improvement. He became worse with his symptoms today and his who accompanied him insisted that he needed medical attention. In the course of interview while volunteering at a history that she's been noticing occasional blood with stool in the toilet. Patient initially denied that, but later corroborated the information. No change in his urinary habits. In the emergency room he was evaluated with an unchanged chest x-ray from previous done in August body CTA chest revealed left lower lobe infiltrate with moderate pericardial effusion. PAST MEDICAL HISTORY: Per HPI PAST SURGICAL HISTORY: Knee surgery. SOCIAL HISTORY: He is and lives with his . He smokes a pack a day cigarette since age 8, denies alcohol, denies illicit drug use. FAMILY HISTORY: No significant history of heart disease in the family. ALLERGIES: Please see below. REVIEW OF SYSTEMS: He denies any fever, chills, no chest pains, no palpitations. He denies any recent sick contacts. No change in his urinary habits. Other system reviewed negative. A 12 point review of system was done HOME MEDICATIONS: Please see below. PHYSICAL EXAMINATION: VITAL SIGNS: Temperature 98, pulse 128, respiratory rate 28, blood pressure 127/62, pulse oximetry 93% on 3L. GENERAL APPEARANCE: Mobidly obese middle aged man, uncomfortable. He is not pale, anicteric and afebrile HEENT: Atraumatic. Neck: Supple. LUNGS: Clear to auscultation bilaterally. CARDIOVASCULAR: S1 and 2 heard, no murmurs. ABDOMEN: Obese, soft, not tender, not distended. Bowel sounds normoactive. MUSCULOSKELETAL: Apparently within normal limits. EXTREMITIES: No pedal edema, 2+ bilateral pedal pulses noted. NEUROLOGICAL: Awake, alert, oriented 3. PSYCHIATRIC: Normal affect LABORATORY DATA: See below. IMAGING: Chest x-ray: Cardiomegaly and increased interstitial opacities bilaterally appearance similar to the prior study in August 2017. CTA chest: No PE EKG: Sinus tachycardia, no acute ST or T-wave changes. MICROBIOLOGY: Please see below. DIAGNOSES: 1. Acute on chronic respiratory failure likely secondary to COPD exacerbation and pneumonia 2. COPD exacerbation 3. Pneumonia. 4. Pericardial effusion. 5. GI bleed. PLAN: 1. I will admit patient to the ICU under care of Dr. Trammell 2. Acute on chronic respiratory failure likely secondary to COPD exacerbation and pneumonia: Patient will continue with ipratropium nebulizations and levalbuterol nebulizations O2 supplementation via nasal cannula and he can use his home CPAP machine, Solu-Medrol 60 mg every 8. I'll start patient also on ceftriaxone IV and his azithromycin, please follow CBC and blood cultures. 3. Pericardial effusion. Thoracic consult placed. GI bleed. He has occasional blood in stool. Coumadin held Gen. surgery consult placed. No GI coverage today. Coumadin has been held and FOBT requested. Please follow FOBT and if negative, restart Coumadin. Patient will be seen by general surgery tomorrow. I would have him on pantoprazole 40 mg daily and every 12 hours hemoglobin/hematocrit check. 4. DVT prophylaxis, TEDs. Coumadin held for now. 5. Diabetes. Patient will be on sliding scale and consistent carb diet with fingerstick glucose monitoring. 6. Hyperlipidemia. Resume by mouth medications. 7. Hypertension. Resume home medications. 8. Extensive counseling on tobacco cessation done and lasted over 10 minutes. 9. Further management will be per patient's clinical course. Vital Signs Vital Signs Date Time Temp Pulse Resp B/P (MAP) Pulse Ox O2 Delivery O2 Flow Rate FiO2 05/06/18 19:15 128 28 127/62 (83) 93 Nasal Cannula 3.0 05/06/18 15:38 98.8 Laboratory Data Labs 24H Laboratory Tests 2 05/06/18 15:51: Immature Granulocyte % (Auto) 0.3, White Blood Count 10.8H, Red Blood Count 4.87, Hemoglobin 14.3, Hematocrit 46.2, Mean Corpuscular Volume 94.9, Mean Corpuscular Hemoglobin 29.4, Mean Corpuscular Hemoglobin Concent 31.0L, Red Cell Distribution Width 12.9, Platelet Count 251, Neutrophils (%) (Auto) 68.8H, Lymphocytes (%) (Auto) 23.4L, Monocytes (%) (Auto) 6.3H, Eosinophils (%) (Auto) 1.0, Basophils (%) (Auto) 0.2, Neutrophils # (Auto) 7.5, Lymphocytes # (Auto) 2.5, Monocytes # (Auto) 0.7, Eosinophils # (Auto) 0.1, Basophils # (Auto) 0.0, Nucleated Red Blood Cells % (auto) 0.0, Prothrombin Time 20.4H, Prothromb Time International Ratio 1.71, Anion Gap 3L, Glomerular Filtration Rate > 60.0, La ctic Acid Level 1.6, Calcium Level 8.1L, Aspartate Amino Transf (AST/SGOT) 24, Alanine Aminotransferase (ALT/SGPT) 50, Alkaline Phosphatase 101, Total Bilirubin 0.3, Direct Bilirubin 0.1, Total Creatine Kinase 446H, Creatine Kinase MB 9.0H, Creatine Kinase MB Relative Index 2.00, Troponin I < 0.02, VP-[id number]-[id number]-Type Natriuretic Peptide 40, Total Protein 7.1, Albumin 3.2, Albumin/Globulin Ratio 0.82L, Lipase 134, Thyroid Stimulating Hormone (TSH) 1.710 CBC/BMP Laboratory Tests 05/06/18 15:51 Red Blood Count 4.87, Mean Corpuscular Volume 94.9, Mean Corpuscular Hemoglobin 29.4, Mean Corpuscular Hemoglobin Concent 31.0 L, Red Cell Distribution Width 12.9, Neutrophils (%) (Auto) 68.8 H, Lymphocytes (%) (Auto) 23.4 L, Monocytes (%) (Auto) 6.3 H, Eosinophils (%) (Auto) 1.0, Basophils (%) (Auto) 0.2, Neutrophils # (Auto) 7.5, Lymphocytes # (Auto) 2.5, Monocytes # (Auto) 0.7, Eo sinophils # (Auto) 0.1, Basophils # (Auto) 0.0 Microbiology Microbiology 05/06/18 Blood Culture, Received Pending 05/06/18 Respiratory Virus Panel (PCR) ([facility]) - Final, Complete Home Medications Scheduled Atorvastatin Calcium (Lipitor) 80 Mg Tab, 80 MG PO QPM Budesonide/Formoterol (Symbicort 160-4.5 Mcg/Act) 60 Puff/Inhaler Aers, 2 PUFF INH BID Insulin Glargine (Lantus) 1 Units/0.01 Ml Susp, 90 UNITS SC BID Lisinopril (Lisinopril) 10 Mg Tab, 10 MG PO DAILY Metformin Hydrochloride (Metformin HCl) 1,000 Mg Tab, 1,000 MG PO BID Multivitamins *[facility] STOCKED* (Thera M Plus *[facility] STOCKED*) 1 Tab Tab, 1 TAB PO DAILY Sitagliptin Phosphate (Januvia) 100 Mg Tab, 100 MG PO DAILY Vitamin D (Drisdol) 50,000 Unit Cap, 50,000 UNIT PO Q2WK EVERY OTHER SUNDAY Warfarin Sod (Warfarin Sodium) 2.5 Mg Tab, 2.5 MG PO Q2D TAKES WITH 10MG TABLET TO EQUAL 12.5MG EVERY OTHER DAY. Warfarin Sod (Warfarin Sodium) 10 Mg Tab, 10 MG PO DAILY PATIENT TAKES WITH 2.5 MG TABLET TO EQUAL 12.5MG EVERY OTHER DAY, ALTERNATES WITH 5MG TABLET TO EQUAL 15MG EVERY OTHER DAY Warfarin Sod (Coumadin) 5 Mg Tab, 5 MG PO Q2D TAKES WITH 10MG TABLET TO EQUAL 15MG EVERY OTHER DAY. Scheduled PRN Acetaminophen (APAP Extra Strength) 500 Mg Tab, 500 MG PO Q6H PRN for PAIN Albuterol Sulfate (Proair Hfa) 108 Mcg/Act Aer, 2 PUFF INH QID PRN for SHORTNESS OF BREATH Albuterol Sulfate (Albuterol Sulfate) 2.5 Mg/3 Ml Nebu, 2.5 MG INH QID PRN for SHORTNESS OF BREATH Bismuth Subsalicylate (Pepto-Bismol) 262 Mg/15 Ml Jaye, 30 ML PO ASDIRECTED PRN for INDIGESTION Fluticasone Propionate (Flonase Allergy Relief) 50 Mcg/Act Spr, 2 SPRAYS NARES DAILY PRN for ALLERGIES Guaifenesin (Mucinex) 600 Mg Tab, 600 MG PO DAILY PRN for COUGH Allergies Coded Allergies: No Known Drug Allergy (Verified Allergy, Unknown, 07/02/12) BOB PRO MD May 06, 2018 19:44
[2018-05-06 21:43] VITALS: BP 171/85
[2018-05-06 21:43] LABS: HEMATOCRIT 46.3 % (42.0-52.0); HEMOGLOBIN 14.3 g/dl (13.5-17.5)
[2018-05-06 21:50] VITALS: BP 150/80
[2018-05-06] MEDS ORDERED: LABETALOL HCL 100 MG/20 ML VIAL IV STA (21:52)
[2018-05-06] MEDS ORDERED: diphenhydrAMINE INJ 50MG/ML VIAL (J1200) IV STA (21:54)
[2018-05-06 22:02] LABS: ABG BASE EXCESS 6.5 (-2.0-2.0); ABG HCO3 37.2 MEQ/L (22.0-26.0); ABG O2 SATURATION 99.4 % (95.0-99.0); ABG PARTIAL PRESSURE O2 230.4 mmHg (75.0-100.0); ABG STANDARD HCO3 30.5 MEQ/L (22.0-26.0); ABG TOTAL CO2 39.7 MEQ/L (22.0-29.0); ABG pH (ARTERIAL) 7.261 UNITS (7.350-7.450)
[2018-05-06 22:03] LABS: ABG PARTIAL PRESSURE CO2 84.5 mmHg (35.0-45.0)
--- NOTE | 2018-05-06 22:43 | ECHO ---
DATE OF PROCEDURE: 05/06/2018 REFERRING PHYSICIAN: Dr. Aleman INDICATION: Pericardial effusion. Height 157 cm, weight 141 kg. DIMENSIONS: IVS: 1.3 LV: 4.9 LVPW: 1.3 Descending aorta: 3.4 LA: 4.6 Aorta: 3.6 Mitral E wave velocity: 118 E prime septal: 11.5 E prime lateral: 15.9 FINDINGS: Study is of very limited technical quality corresponding to patient's body habitus. Left ventricle is of normal size. I estimate the overall left ventricular systolic function to be normal or near normal based on very limited views. Right ventricle was poorly seen but does not appear grossly enlarged. Left atrium is severely enlarged. Right atrium was poorly visualized but also appears at least mildly enlarged. Aortic valve is sclerotic but mobility seems to be at least mostly preserved. Mitral and tricuspid valves appear grossly normal. Pulmonic valve was not well seen. There is circumferential pericardial effusion. It is largest in diameter adjacent to the right atrium when it measures up to 2 cm but for the most of the circumference it is less than 1 cm. I do not appreciate any diastolic collapse of any of four cardiac chambers. Inferior vena cava was not seen. Aortic root is normal, aortic arch and abdominal aorta were not visualized. Doppler interrogation of aortic valve reveals no stenosis or insufficiency. There is mild mitral insufficiency. No visualized tricuspid insufficiency is present. Evaluation of diastolic function is inconclusive. There is only one wave on mitral inflow, most likely due to summation pattern as the patient is tachycardiac with ventricular rate between 125 and 130 beats per minute. E prime velocities both in septal and lateral mitral annulus are quite preserved. CONCLUSIONS: 1. Study is of markedly limited technical quality. 2. Normal left ventricular (LV) size with probably normal or near normal systolic function. 3. No hemodynamically significant valvular disease. 4. Approximately moderate circumferential pericardial effusion without any signs of hemodynamic compromise. COMMENT: Subacute bacterial endocarditis (SBE) prophylaxis is not recommended. I would still consider clinical characteristics in judging significance of pericardial effusion as this study is markedly limited considering the patient's morbid obesity. The results of the study were communicated with Dr. Pro.
[2018-05-06 22:58] VITALS: BP 114/54; O2SAT 93
[2018-05-06] MEDS: ATORVASTATIN 20 MG TAB PO SCH (23:24)
[2018-05-07] VITALS (11 sets, daily range): BP systolic 106–138; BP diastolic 61–92; O2SAT 88
[2018-05-07] MEDS: cefTRIAXone SOD 1 GM in D5W MINI-BAG PLUS 50 ML IV SCH ×2 (00:06→20:12)
[2018-05-07] MEDS: HumaLOG INSULIN (NovoLOG) PER UNIT SC SCH ×5 (00:07→20:45)
[2018-05-07 00:44] LABS: ABG pH (ARTERIAL) 7.355 UNITS (7.350-7.450)
[2018-05-07 00:45] LABS: ABG BASE EXCESS 6.2 (-2.0-2.0); ABG O2 SATURATION 96.1 % (95.0-99.0); ABG PARTIAL PRESSURE CO2 62.3 mmHg (35.0-45.0); ABG PARTIAL PRESSURE O2 85.1 mmHg (75.0-100.0); ABG STANDARD HCO3 30.1 MEQ/L (22.0-26.0); ABG TOTAL CO2 35.9 MEQ/L (22.0-29.0)
[2018-05-07] MEDS: methylPREDNISolone INJ 125 MG/2 ML VIAL (J2930) IV SCH ×3 (02:26→17:41)
[2018-05-07 05:19] LABS: BASO % 0.3 % (0.0-1.0); HEMOGLOBIN 14.6 g/dl (13.5-17.5); LYMPH # 1.4 10^3/uL (1.5-4.5); LYMPH % 12.2 % (24.0-44.0); MEAN CORPUSCULAR HEMOGLOBIN 29.3 pg (27.0-33.0); MEAN CORPUSCULAR HGB CONC 31.1 g/dl (32.0-36.5); MEAN CORPUSCULAR VOLUME 94.4 fl (80.0-96.0); MONO # 0.1 10^3/uL (0.0-0.8); MONO % 0.8 % (0.0-5.0); NEUTROPHILS % 86.3 % (36.0-66.0); PLATELET COUNT, AUTOMATED 266 10^3/uL (150-450); RED BLOOD COUNT 4.98 10^6/uL (4.30-6.10); WHITE BLOOD COUNT 11.6 10^3/uL (4.0-10.0)
[2018-05-07 05:31] LABS: INR 1.56; PROTHROMBIN TIME 18.9 SECONDS (12.1-14.4)
[2018-05-07 05:32] LABS: BLOOD UREA NITROGEN 16 MG/DL (7-18); CARBON DIOXIDE LEVEL 31 MEQ/L (21-32); CHLORIDE LEVEL 100 MEQ/L (98-107); CREATININE FOR GFR 0.74 MG/DL (0.70-1.30); GLOMERULAR FILTRATION RATE > 60.0 (>60); GLUCOSE, FASTING 280 MG/DL (70-100); POTASSIUM SERUM 4.4 MEQ/L (3.5-5.1); SODIUM LEVEL 137 MEQ/L (136-145)
[2018-05-07] MEDS ORDERED: HumaLOG INSULIN (NovoLOG) PER UNIT SC SCH (07:30)
[2018-05-07] MEDS ORDERED: AZITHROMYCIN 250 MG TAB PO SCH (09:00)
[2018-05-07] MEDS ORDERED: LISINOPRIL 10 MG TAB PO SCH (09:00)
[2018-05-07] MEDS: NICOTINE 21MG/24HR 1 EA TRANSDERMAL TD SCH (09:34)
[2018-05-07] MEDS: IPRATROPIUM 0.5MG/ALBUTEROL 2.5MG INH SOL UD 3ML (DUONEB)(J7620) NEB SCH ×5 (09:35→23:46)
[2018-05-07] MEDS: PANTOPRAZOLE 40MG TAB (PROTONIX) PO SCH (09:35)
[2018-05-07 09:37] LABS: HEMOGLOBIN 14.4 g/dl (13.5-17.5)
[2018-05-07] MEDS: LEVEMIR (INSULIN DETEMIR) 1 UNITS/0.01ML SC SCH ×2 (10:40→20:45)
[2018-05-07] MEDS: DOXYCYCLINE HYCLATE 100 MG TAB PO SCH ×2 (10:40→20:12)
--- NOTE | 2018-05-07 10:48 | CR ---
DATE OF CONSULTATION: 05/07/2018 Patient seen at the request of Dr. Aleman and Dr. Pro for a pericardial effusion. Patient is seen approximately 10 hours after admission. When I was consulted last night, I reviewed the CT scan, which showed a very small pericardial effusion and the echocardiogram did not show any compression and showed even a smaller pericardial effusion. I therefore elected to see him this morning. Patient is a 47-year-old white male for whom I get a completely different history than was given last night. When asked why he came to the hospital, he said his called an ambulance but that he does not know why. He denies being short of breath. According to the history that was obtained last night, his thought that he was more progressively short of breath. He denies having a cough or sputum production. He denies fevers, chills or sweats, and denies chest pain or chest pressure. He also denies dysphagia. He states his weight has gone up but has not lost weight. Last night's history states that his has been noticing that he was becoming more short of breath over 2 weeks. She was insisting he needed medical attention. When speaking with the emergency room physician, I was assured that he was in no acute distress. A CAT scan was performed last night looking for a pulmonary embolism, which there was none but with the incidental finding of a small pericardial effusion. It is notably he does not have any chest pain or chest pressure and there is no accompanying pain with sitting up or lying down or other positional changes. He does have known sleep apnea. PAST MEDICAL HISTORY: Chronic obstructive pulmonary disease (COPD) on home oxygen of 2-3 liters. Also on continuous positive airway pressure (CPAP) at night for his obstructive sleep apnea (RAE). Diabetes, hypertension, hyperlipidemia, status post a deep venous thrombosis (DVT) now on Coumadin, morbid obesity, and has had multiple CVAs in the past which have left his right arm weak. PAST SURGICAL HISTORY: Knee surgery. MEDICATIONS AT HOME: - Lipitor 80 mg nightly - Symbicort 160-4.5 2 puffs twice a day - Lantus insulin 90 units subcu twice a day - Lisinopril 10 mg every day - metformin 1,000 mg twice a day - multivitamins every day - Januvia 100 mg every day - Drisdol 50,000 units every 2 weeks - Coumadin 2.5 mg every other day and 10 mg daily - ProAir 2 puffs as needed, shortness of breath - albuterol four times a day as needed, shortness of breath TRAVEL HISTORY: [place] [facility] [place] [facility] and there is no foreign travel history. HABITS: Smokes a pack a day since he was [id number]. [place]. Denies alcohol use or illicit drugs. EXPOSURES: Has a cat at home. No dogs or birds. Has not had any exposure to tuberculosis. OCCUPATIONAL HISTORY: He used to work at a [employer] shop and also on [employer] doing [employer]. He has been disabled for years. There is no convincing asbestos exposure. REVIEW OF SYSTEMS: Eyes: Without diplopia. Without amaurosis fugax. Without prior jaundice. Nose: Without epistaxis. Mouth: Has his own teeth. Respiratory: See history of present illness (HPI). Cardiac: See HPI. No prior history of myocardial infarctions. Gastrointestinal (GI): Without nausea, vomiting, diarrhea or constipation, melena, hematochezia, hematemesis or abdominal pain. There is note in the history last night that his has noted blood in the toilet after his stools. He denies this. Genitourinary (): Without dysuria or hematuria or prior history of renal stones. Endocrine: With diabetes. Without thyroid disease. Neurologic: Status post six transient ischemic attacks (TIAs) which has left his right arm somewhat weakened. Psychiatric: Without pathological anxiety, depression or psychoses. PHYSICAL EXAMINATION: A well-developed, obese, white male, lying comfortably in bed, in no acute distress. Vital Signs: Temperature is 97.8, heart rate 108 in a sinus rhythm, respiratory rate of 22 without the use of accessory muscles, who is 94% saturated on 4 liters nasal cannula and his blood pressure is 130/92. Eyes: Pupils equal, round, and reactive to light. Extraocular intact. Sclerae nonicteric. Nose: Without deformity. Mouth: Shows mucous membranes to be pink and moist. Lips and commissures without lesions. There is no thrush. He has multiple missing teeth. Head is normocephalic. Neck is supple. There is no jugular venous distention. No subcutaneous emphysema. Trachea is midline. I do not appreciate carotid bruits. He has 2+ carotid upstrokes. There is no thyromegaly. No cervical lymphadenopathy. Lungs show equal breath sounds on either side with a full percussion note to the diaphragm. He does have bilateral wheezing in mid to late expiration in both lung thakkar. Cardiac exam is without murmurs, clicks, gallops or rubs. I cannot feel his point of maximum impulse (PMI). S1, S2 are normal. He is obese and his heart sounds are slightly diminished probably due to his obesity not to the pericardial effusion. Abdomen is rotund, obese, tympanitic. Bowel sounds are positive. There is no hepatomegaly, no costovertebral angle (CVA) tenderness that I can feel through his obesity. Extremities: Show no pretibial edema. No calf tenderness. No differential swelling of the upper extremities. Skin is warm, dry and perfused. Without cyanosis or mottling, including that of the nail beds and the knees. Neurologic: Shows II-XII intact along with gross motor and gross sensation intact. Gait is not tested. He has some weakness in his proximal right arm. Psychiatric shows him to be awake and alert, oriented times three with appropriate mood and affect and conversational. His white count this morning is 11.6 with hemoglobin and hematocrit of 14.6 and 47.0, respectively. Platelet count is 266. Differential shows 86% neutrophils, 12% lymphocytes, and 1% monocytes. There are no immature forms and no toxic granulations. His blood gas last night showed a pH of 7.26 with a pCO2 of 85 and a base excess of 6.5; pO2 was 230. This morning's blood gas shows an improvement in his pH to 7.355, with a pCO2 of 62 and pO2 of 85 with the same base excess. This is after a night of bilevel positive airway pressure (BiPAP). His PT/INR 18.9 and 1.56, respectively. Electrolytes this morning are normal with a BUN and creatinine of 16 and 0.74, glucose of 280 and a calcium of 8.0. Yesterday's albumin was 3.2 and TSH was 1.71 within normal limits. Liver function tests were normal including AST, ALT, and alkaline phosphatase. His chest x-ray shows a somewhat globular heart. It is done portably. There is a vague haze in the lower left hemithorax. His right costophrenic angle is sharp. His CT angio also done last night shows mild emphysematous changes in both lung thakkar. There is an infiltrative process in the left lower lobe, which may be just atelectasis. He has ground-glass opacities in the left lower lobe and the right lower lobe. I do not appreciate significant mediastinal lymphadenopathy. There is no hilar lymphadenopathy. There is no pulmonary embolisms seen on the contrast study. He has a small pericardial effusion. Posteriorly the pericardial effusion measures 8 mm on the left and 1.2 cm adjacent to right atrium. Left adrenal has a normal configuration as does the right adrenal. Liver has no intrahepatic lesions and he has no splenomegaly. The pancreas has a normal configuration. His echocardiogram showed a small pericardial effusion again without compressive changes. The images are not terrific due to his body habitus. IMPRESSION: 1. Pericardial effusion and possible pericarditis without tamponade or compression. 2. Chronic obstructive pulmonary disease, hypercapnic. 3. Obstructive sleep apnea. 4. Hypertension. 5. Diabetes. 6. Morbid obesity. PLAN AND DISCUSSION: His pericardial effusion does not need intervention. If we are to treat him for pericarditis, I would suggest starting him on antiinflammatories. He has no chest pain or chest pressure and I would start off with run of the mill nonsteroidal anti-inflammatory drugs (NSAIDs). He does not need steroids. I do not know what the pericardial effusion is due to. I would suggest a cardiology consult to follow what we are presuming to be pericarditis. Possibilities include autoimmune disease, infectious disease including viral and bacterial. I highly doubt this is bacterial. It may be post viral, although he does not give a history of a viral syndrome.
--- NOTE | 2018-05-07 11:07 | CR ---
DATE OF CONSULTATION: 05/07/2018 The patient is a 47-year-old male who presented to the emergency department last night after he was brought in at his 's urging because he seemed like he was having difficulty breathing. The patient states at bedside that he has been using his rescue inhaler and nebulizer more in the last 4 weeks, multiple times during the day. He has also been coughing up brown mucusy sputum. He denies any chest pain, no fevers or chills. Has chronic orthopnea and reports some slight LE edema. Patient also states that he does not wear his CPAP at home and does not use his maintenance inhaler. Per his primary care provider, he has a referral to see [facility] for adjustments to his CPAP. He has a past medical history of chronic obstructive pulmonary disease (COPD) and on 2 to 3 liters of oxygen at home. He has a brother who was sick recently. PAST MEDICAL HISTORY: 1. COPD, on home oxygen at 2 to 3 liters. 2. Obstructive sleep apnea. 3. Diabetes. 4. Hypertension. 5. Hyperlipidemia. 6. History of deep vein thrombosis (DVT), on Coumadin. 7. Morbid obesity. 8. Multiple CVAs in the past. PAST SURGICAL HISTORY: 1. History of knee replacement. SOCIAL HISTORY: He is and lives at home with his . He smokes up to two packs a day since the age of 8. Denies alcohol or illicit drug use. He states that he does not smoke cigarettes while he is on oxygen. 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 It is possible that he may have had a remote history of asbestos exposure in the past, although he is not sure. FAMILY HISTORY: Not applicable. REVIEW OF SYSTEMS: GENERAL: The patient denies any fevers, chills, recent unexpected weight change HEENT: Denies headaches, dizziness, sore throat, CARDIOVASCULAR: Denies any chest pain, pressure, feeling like his heart is racing. RESPIRATORY: Admits to difficulty breathing, as stated in the history of present illness and coughing up brown sputum. GASTROINTESTINAL: Denies any nausea, vomiting or abdominal tenderness. GENITOURINARY: Denies any difficulty urinating, blood in his urine or pain on urination. States that his belly is slightly larger than it usually is. EXTREMITIES: States his legs are a little bit bigger than they usually are. ALLERGIES: AZITHROMYCIN. HOME MEDICATIONS: - Tylenol - albuterol nebulizer - atorvastatin - Symbicort - Flonase - guaifenesin - Lantus 90 units - Lisinopril - metformin - Januvia - vitamin D - warfarin 2.5 mg every 2 days and warfarin 10 mg every day, warfarin 5 mg every 2 days PHYSICAL EXAMINATION: VITAL SIGNS: 98.6, pulse 114, respiratory rate 22, blood pressure 137/66, pulse oximetry 96%. On BiPAP settings of 18/8 his respiratory rate is 18, FiO2 of 35 overnight. GENERAL APPEARANCE: The patient is a morbidly obese, middle aged man resting comfortably in bed. HEENT: Head is normocephalic, atraumatic. Eyes: Sclerae nonicteric. EOMI. Throat with no exudates seen on exam. Mallampati score of 3 to 4. Neck circumference increased. CARDIOVASCULAR: Regular rate and rhythm. Normal S1, S2. No murmurs appreciated on auscultation. LUNGS: Decreased breath sounds, poor air movement posteriorly with few wheezes appreciated anteriorly. No crackles or rhonchi. ABDOMEN: Obese, soft, nontender with mild abdominal distention. Bowel sounds present. MUSCULOSKELETAL: The patient is able to stand but has some difficulty. EXTREMITIES: +1 pitting edema in bilateral lower extremities. NEUROLOGIC: The patient is alert and oriented times three with no focal deficits. PSYCHIATRIC: Normal affect. The patient is confused as to why he is in the hospital and does not feel like he needs to be here. LABORATORY DATA: White blood cell count is 11.6, hemoglobin 14.6, hematocrit 47, platelets 266. Sodium 137, potassium 4.4, chloride 100, bicarbonate 31, BUN 16, creatinine 0.74, glucose 280, pH of 7.35, PO2 of 62.3, PCO2 of 85. Respiratory panel negative. Preliminary blood cultures times one shows gram-positive cocci in clusters. IMAGING: Chest x-ray shows cardiomegaly and increased interstitial opacities bilaterally, appearance similar to prior study in August 2017. CT of the chest has not been read by radiology; however, right lower lobe shows small peripheral ground glass opacity, left upper lobe shows peripheral consolidation. Near hilum in the lingula and RML there is some atelectatic changes and peribronchovascular infiltrate, In left lower lobe there is atelectasis/infiltrate more compared to right. There is small pericardial effusion. No evidence of PE. No significant adenopathy. Electrocardiogram (EKG) shows sinus tachycardia with premature ventricular contractions (PVCs) present. ASSESSMENT AND PLAN: Mr. Chavez is a 47-year-old male presenting with acute on chronic hypoxemic hypercarbic respiratory failure likely secondary to acute COPD exacerbation with possible PNA. We were consulted initially for BiPAP. Patient was on BIPAP at 18/8 with RR of 18 and FiO2 35% with improvement in his hypercarbia. Currently, he is on Rocephin and his prelim blood cultures are positive for gram-pos cocci. - patient was given azithromycin on admission with possible allergic reaction and it was DC. therefore will add on doxycycline for atypical coverage and possible methicillin resistant Staphylococcus aureus (MRSA) coverage. - The patient's initial ABG shows acute on chronic respiratory acidosis with appropriate compensation. His repeat ABG on BIPAP showed improvement. - recommended patient continue BiPAP tabletop qhs at settings 16/8 FiO2 35%. He is not compliant with CPAP however as outpatient and unlikely to be compliant as well while admitted. - changed DuoNeb treatments to standing, and he should be on a maintenance inhaler outpatient. We recommend Spiriva and Breo Ellipta inhalers when he leaves. - he has some mild pitting edema and increased abdominal distension but BNP is low (may be falsely low with his obesity) Less likely to have acute CHF exacerbation as a cause for his decompensation. - He also likely has OHS in addition to RAE given chronic hypercarbia and daytime hypoxemia although may also be due to COPD, however does not have significant emphysematous changes. Suspect he has some chronic respiratory failure due to restriction from his obesity. - We will defer to his primary team for when to restart his Coumadin for his history of DVTs. He does not appear to be compliant as his INR was subtherapeutic on admission. - We also advised smoking cessation for the patient. - patient also with small to mod pericardial effusion on imaging. Cardiology is consulted, appreciate their recs. My faculty preceptor for this patient encounter was physically present during the encounter and was fully available. All aspects of the patient interview, examination, medical decision making process, and medical care plan development were reviewed and approved by the faculty preceptor. The faculty preceptor is aware and concurs with the plan as stated in the body of this note and will attest to such by his/her co-signature. I, Lona Morrison, have seen and conducted independent examination of the patient and agree with the plan as detailed above and discussed during rounds. MTDD
[2018-05-07 12:35] LABS: HEMOGLOBIN 14.3 g/dl (13.5-17.5)
--- NOTE | 2018-05-07 13:34 | REP ---
CT ANGIOGRAM CHEST: TECHNIQUE: Axial contrast enhanced images from the thoracic inlet to the upper abdomen using 100 mL Isovue 370 intravenous contrast material with multiplanar reformations. COMPARISON: 09/13/2017. There is no CT evidence of pulmonary embolism. The study is somewhat limited by patient motion. There is no thoracic aortic aneurysm or dissection. No adenopathy is seen in the chest. Heart is upper limits of normal in size. There is a mild pericardial effusion. No pleural effusion is seen. Perihilar fibro atelectatic change appears similar to the prior study but there is new patchy infiltrate in the left lower lobe. Visualized upper abdominal structures demonstrate a small cyst in the upper pole of the left kidney. IMPRESSION: No CT evidence of pulmonary embolism or aortic dissection. Mild to moderate pericardial effusion. Perihilar fibro atelectatic change. Left lower lobe infiltrate is new since the prior study. Electronically Signed by Jarad Cooney MD 05/07/2018 05:27 P
[2018-05-07 18:02] LABS: HEMATOCRIT 43.1 % (42.0-52.0); HEMOGLOBIN 13.8 g/dl (13.5-17.5)
--- NOTE | 2018-05-07 18:11 | IPNPDOC ---
Text Note Date of Service The patient was seen on 05/07/18. NOTE Subjective: Patient is a 47-year-old male with PMHx of COPD on O2 (2-3L), RAE on CPAP, HTN, DM2, DLP, DVT (on anticoagulation), Multiple CVA's, Morbid obesity who presented to the ER with progressive shortness of breath associated with a productive cough of whitish sputum. In the emergency room, patient was found to be short of breath and was admitted to the hospitalist service for further evaluation and treatment. He was suspected to have a COPD exacerbation and was placed in the ICU for BiPAP support. Pulmonary was consult and for assistance. Patient was seen and examined at the bedside. Patient is seen sitting up in chair in the ICU. He denies chest pain, shortness of breath or palpitations. Denies nausea, vomiting, abdominal pain, consultation, diarrhea or discomfort with urination. Objective: Vitals (See below) General: Lying in bed, no acute distress, comfortable, AAOx3 HEENT: NC, AT CVS: RRR, +S1S2 Lungs: Fair air entry b/l, mild expiratory wheezing, no rhonchi / rales Abdomen: Soft, ND, NT, +BSx4 Extremities: - Edema, - Calf tenderness Assessment and plan: Shortness of breath - likely 2/2 acute COPD exacerbation, possible CAP - Presented to the ER physician as of breath and cough - Physical expiratory wheezing - ABG shows improvement of PCO2 - CT chest 05/07: No CT evidence of pulmonary embolism or aortic dissection. Mild to moderate pericardial effusion. Perihilar fibro atelectatic change. Left lower lobe infiltrate is new since the prior study. - CXR 05/06: Cardiomegaly and increased interstitial opacities bilaterally appearing similar to the prior study of 09/12/2017. - c/w Ceftriaxone and Doxycycline (Day #2) - c/w Solumedrol - c/w Inhaled therapy as ordered - Pulmonary on consultation Pericardial effusion - etiology unclear - ECHO 05/07: moderate circumferential pericardial effusion without any signs of hemodynamic compromise - Will trend CRP / ESR - Will check DENNIS, RF - Cardiothoracic surgery on consultation; currently no plans for intervention RAE on CPAP - Has a CPAP device at home; however is non-compliant - Will change to table top BIPAP device while inpatient; Pulmonary managing settings HTN - BP well controlled - c/w Lisinopril DM2 - c/w ISS and Levemir DLP - c/w Atorvastatin Hx of DVT - Has been on Coumadin for full anticoagulation as an outpatient - Will start Eliquis Multiple CVA's - Has been told to remain on anticoagulation for this - Will start Eliquis Morbid obesity GI prophylaxis - c/w Protonix DVT prophylaxis - Will start full anticoagulation with Eliquis VS,Fishbone, I+O VS, Fishbone, I+O Laboratory Tests 05/06/18 21:24 05/07/18 04:50 Red Blood Count 4.98, Mean Corpuscular Volume 94.4, Mean Corpuscular Hemoglobin 29.3, Mean Corpuscular Hemoglobin Concent 31.1 L, Red Cell Distribution Width 12.8, Neutrophils (%) (Auto) 86.3 H, Lymphocytes (%) (Auto) 12.2 L, Monocytes (%) (Auto) 0.8, Eosinophils (%) (Auto) 0.0, Basophils (%) (Auto) 0.3, Neutrophils # (Auto) 10.0 H, Lymphocytes # (Auto) 1.4 L, Monocytes # (Auto) 0.1, Eosinophils # (Auto) 0.0, Basophils # (Auto) 0.0, Calcium Level 8.0 L 05/07/18 09:05 05/07/18 12:10 Vital Signs Date Time Temp Pulse Resp B/P (MAP) Pulse Ox O2 Delivery O2 Flow Rate FiO2 05/07/18 14:06 118 22 120/71 (87) 90 3.0 05/07/18 12:00 97.5 05/07/18 04:25 BIPAP/CPAP 45 I&O- Last 24 Hours up to 6 AM 05/07/18 06:00 Intake Total 530 ml Output Total 2050 ml Balance -1520 ml DEANDRE TRAMMELL MD May 07, 2018 18:11
--- NOTE | 2018-05-07 18:54 | ECGEPIP ---
Stationary ECG Study [facility] - ED Test Date: 2018-05-06 Pat Name: DAMIÁN ZARCO Department: Room: - Gender: M Database Administration Manager: : [id number] Requested By: Ameena Arteaga Order Number: [id number] Reading MD: Ameena Arteaga Measurements Intervals [place] Rate: 132 P: 77 [place]: 143 QRS: 84 QRSD: 92 T: 82 QT: 311 QTc: 462 Interpretive Statements SINUS TACHYCARDIA WITH OCCASIONAL VENTRICULAR PREMATURE COMPLEXES INDETERMINATE AXIS PATTERN CONSISTENT WITH PULMONARY DISEASE INCOMPLETE RIGHT BUNDLE BRANCH BLOCK INCREASED RATE 09/12/17 Electronically Signed On 05-07-2018 18:53:58 EST by Ameena Arteaga
[2018-05-07 19:02] LABS: C REACTIVE PROTEIN QUANTITATIV 0.75 MG/DL (0.00-0.30); RHEUMATOID FACTOR QUANT < 10.0 IU/ML (<15.0)
[2018-05-07] MEDS: ATORVASTATIN 20 MG TAB PO SCH (20:12)
[2018-05-07] MEDS: APIXABAN 5 MG TAB (ELIQUIS) PO SCH (20:12)
[2018-05-08] VITALS: BP 99/56
[2018-05-08 00:59] LABS: HEMATOCRIT 42.4 % (42.0-52.0); HEMOGLOBIN 13.6 g/dl (13.5-17.5)
[2018-05-08] MEDS: methylPREDNISolone INJ 125 MG/2 ML VIAL (J2930) IV SCH (01:28)
[2018-05-08 04:00] VITALS: BP 89/53
[2018-05-08] MEDS: IPRATROPIUM 0.5MG/ALBUTEROL 2.5MG INH SOL UD 3ML (DUONEB)(J7620) NEB SCH ×4 (04:24→19:42)
[2018-05-08 04:35] LABS: BASO % 0.1 % (0.0-1.0); HEMATOCRIT 42.1 % (42.0-52.0); HEMOGLOBIN 13.6 g/dl (13.5-17.5); LYMPH # 1.4 10^3/uL (1.5-4.5); LYMPH % 8.5 % (24.0-44.0); MEAN CORPUSCULAR HEMOGLOBIN 29.2 pg (27.0-33.0); MEAN CORPUSCULAR HGB CONC 32.3 g/dl (32.0-36.5); MEAN CORPUSCULAR VOLUME 90.3 fl (80.0-96.0); MONO # 0.5 10^3/uL (0.0-0.8); MONO % 3.3 % (0.0-5.0); NEUTROPHILS # 14.4 10^3/uL (1.8-7.7); NEUTROPHILS % 87.4 % (36.0-66.0); PLATELET COUNT, AUTOMATED 283 10^3/uL (150-450); RED BLOOD COUNT 4.66 10^6/uL (4.30-6.10); WHITE BLOOD COUNT 16.5 10^3/uL (4.0-10.0)
[2018-05-08 04:58] LABS: ALBUMIN 2.8 GM/DL (3.2-5.2); ALT/SGPT 39 U/L (12-78); BILIRUBIN,TOTAL 0.3 MG/DL (0.2-1.0); BLOOD UREA NITROGEN 20 MG/DL (7-18); C REACTIVE PROTEIN QUANTITATIV 0.58 MG/DL (0.00-0.30); CALCIUM LEVEL 7.8 MG/DL (8.5-10.1); CARBON DIOXIDE LEVEL 33 MEQ/L (21-32); CHLORIDE LEVEL 99 MEQ/L (98-107); CREATININE FOR GFR 0.76 MG/DL (0.70-1.30); GLOMERULAR FILTRATION RATE > 60.0 (>56); GLUCOSE, FASTING 321 MG/DL (70-100); MAGNESIUM LEVEL 1.8 MG/DL (1.8-2.4); POTASSIUM SERUM 4.3 MEQ/L (3.5-5.1); SODIUM LEVEL 138 MEQ/L (136-145); TOTAL PROTEIN 6.9 GM/DL (6.4-8.2)
[2018-05-08] MEDS: HumaLOG INSULIN (NovoLOG) PER UNIT SC SCH ×4 (07:43→21:17)
[2018-05-08 08:00] VITALS: BP 122/73
[2018-05-08] MEDS ORDERED: predniSONE 10 MG TAB PO ONE ×2 (09:00→20:00)
[2018-05-08] MEDS: NICOTINE 21MG/24HR 1 EA TRANSDERMAL TD SCH (09:13)
[2018-05-08] MEDS: LEVEMIR (INSULIN DETEMIR) 1 UNITS/0.01ML SC SCH ×2 (09:13→21:17)
[2018-05-08] MEDS: DOXYCYCLINE HYCLATE 100 MG TAB PO SCH ×2 (09:14→21:16)
[2018-05-08] MEDS: APIXABAN 5 MG TAB (ELIQUIS) PO SCH ×2 (09:14→21:16)
[2018-05-08] MEDS: NS 1,000 ML IV SCH ×2 (09:14→17:27)
[2018-05-08] MEDS: PANTOPRAZOLE 40MG TAB (PROTONIX) PO SCH (09:14)
[2018-05-08 12:00] VITALS: BP 131/80
--- NOTE | 2018-05-08 14:55 | IPNPDOC ---
Text Note Date of Service The patient was seen on 05/08/18. NOTE Subjective: Patient is a 47-year-old male with PMHx of COPD on O2 (2-3L), RAE on CPAP, HTN, DM2, DLP, DVT (on anticoagulation), Multiple CVA's, Morbid obesity who presented to the ER with progressive shortness of breath associated with a productive cough of whitish sputum. In the emergency room, patient was found to be short of breath and was admitted to the hospitalist service for further evaluation and treatment. He was suspected to have a COPD exacerbation and was placed in the ICU for BiPAP support. Pulmonary was consult and for assistance. Patient was seen and examined at the bedside. Patient was again sitting in chair having his hair washed by his . Denies any chest pain, shortness of breath or palpitations. Has not experienced any nausea, vomiting, abdominal pain, constipation, diarrhea or discomfort with urination. Objective: Vitals (See below) General: Lying in bed, no acute distress, comfortable, AAOx3 HEENT: NC, AT CVS: RRR, +S1S2 Lungs: Fair to minimal air flow bilaterally, no evidence of rhonchi reveals mild wheezing is appreciated Abdomen: Soft, ND, non-tender Extremities: No evidence of LE edema, - Calf tenderness Assessment and plan: Shortness of breath - likely 2/2 acute COPD exacerbation, possible CAP - Initially had complaints of shortness of breath associated with wheezing; [place]. He has had resolution of his symptoms - Physical with decreased air flow bilaterally and some expiratory wheezing - ABG shows improvement of PCO2 - CRP trending down - CT chest 05/07: No CT evidence of pulmonary embolism or aortic dissection. Mild to moderate pericardial effusion. Perihilar fibro atelectatic change. Left lower lobe infiltrate is new since the prior study. - CXR 05/06: Cardiomegaly and increased interstitial opacities bilaterally appearing similar to the prior study of 09/12/2017. - c/w Ceftriaxone and Doxycycline (Day #3) - Prednisone has been started; s/p Solumedrol - c/w Inhaled therapy as ordered - Pulmonary on consultation; appreciate their input Pericardial effusion - etiology unclear - ECHO 05/07: moderate circumferential pericardial effusion without any signs of hemodynamic compromise - CRP trending down - RF negative; DENNIS pending - Cardiothoracic surgery on consultation; currently no plans for intervention RAE on CPAP - Has a CPAP device at home; however is non-compliant - c/w Table top BIPAP device while inpatient; Pulmonary managing settings HTN - BP well controlled - c/w Lisinopril DM2 - c/w ISS and Levemir - Will increase dose of Levemir back to home dose DLP - c/w Atorvastatin Hx of DVT - Has been on Coumadin for full anticoagulation as an outpatient - c/w Eliquis Multiple CVA's - Has been told to remain on anticoagulation for this - c/w Eliquis Morbid obesity GI prophylaxis - c/w Protonix DVT prophylaxis - c/w full anticoagulation with Eliquis VS,Fishbone, I+O VS, Fishbone, I+O Laboratory Tests 05/07/18 17:49 05/08/18 00:06 05/08/18 04:14 Red Blood Count 4.66, Mean Corpuscular Volume 90.3, Mean Corpuscular Hemoglobin 29.2, Mean Corpuscular Hemoglobin Concent 32.3, Red Cell Distribution Width 12.9, Neutrophils (%) (Auto) 87.4 H, Lymphocytes (%) (Auto) 8.5 L, Monocytes (%) (Auto) 3.3, Eosinophils (%) (Auto) 0.0, Basophils (%) (Auto) 0.1, Neutrophils # (Auto) 14.4 H, Lymphocytes # (Auto) 1.4 L, Monocytes # (Auto) 0.5, Eosinophils # (Auto) 0.0, Basophils # (Auto) 0.0, Calcium Level 7.8 L, Aspartate Amino Transf (AST/SGOT) 18, Alanine Aminotransferase (ALT/SGPT) 39, Alkaline Phosphatase 74, Total Bilirubin 0.3, Total Protein 6.9, Albumin 2.8 L Vital Signs Date Time Temp Pulse Resp B/P (MAP) Pulse Ox O2 Delivery O2 Flow Rate FiO2 05/08/18 12:00 97.8 111 23 131/80 (97) 92 4.0 05/08/18 04:00 35 05/07/18 04:25 BIPAP/CPAP I&O- Last 24 Hours up to 6 AM 05/08/18 06:00 Intake Total 2900 ml Output Total 1850 ml Balance 1050 ml DEANDRE TRAMMELL MD May 08, 2018 14:54
[2018-05-08 16:00] VITALS: BP 128/82
[2018-05-08 20:00] VITALS: BP 119/81
[2018-05-08] MEDS ORDERED: SODIUM CHLORIDE NASAL 0.65% SPRAY BTL (OCEAN) PRN (20:15)
[2018-05-08] MEDS: cefTRIAXone SOD 1 GM in D5W MINI-BAG PLUS 50 ML IV SCH (21:14)
[2018-05-08] MEDS: ATORVASTATIN 20 MG TAB PO SCH (21:16)
[2018-05-09] VITALS: BP 131/64
[2018-05-09] MEDS: IPRATROPIUM 0.5MG/ALBUTEROL 2.5MG INH SOL UD 3ML (DUONEB)(J7620) NEB SCH ×2 (02:00→08:19)
[2018-05-09 04:00] VITALS: BP 140/62
[2018-05-09] MEDS: NS 1,000 ML IV SCH (04:45)
[2018-05-09 05:13] LABS: BASO % 0.2 % (0.0-1.0); HEMATOCRIT 42.4 % (42.0-52.0); HEMOGLOBIN 13.5 g/dl (13.5-17.5); LYMPH # 1.8 10^3/uL (1.5-4.5); LYMPH % 12.8 % (24.0-44.0); MEAN CORPUSCULAR HEMOGLOBIN 29.7 pg (27.0-33.0); MEAN CORPUSCULAR HGB CONC 31.8 g/dl (32.0-36.5); MEAN CORPUSCULAR VOLUME 93.4 fl (80.0-96.0); MONO % 6.7 % (0.0-5.0); NEUTROPHILS # 11.3 10^3/uL (1.8-7.7); NEUTROPHILS % 79.1 % (36.0-66.0); PLATELET COUNT, AUTOMATED 272 10^3/uL (150-450); RED BLOOD COUNT 4.54 10^6/uL (4.30-6.10); WHITE BLOOD COUNT 14.3 10^3/uL (4.0-10.0)
[2018-05-09 05:18] LABS: ALBUMIN 2.9 GM/DL (3.2-5.2); ALT/SGPT 49 U/L (12-78); BILIRUBIN,TOTAL 0.3 MG/DL (0.2-1.0); BLOOD UREA NITROGEN 20 MG/DL (7-18); C REACTIVE PROTEIN QUANTITATIV 0.34 MG/DL (0.00-0.30); CALCIUM LEVEL 7.2 MG/DL (8.5-10.1); CARBON DIOXIDE LEVEL 32 MEQ/L (21-32); CHLORIDE LEVEL 99 MEQ/L (98-107); CREATININE FOR GFR 0.82 MG/DL (0.70-1.30); GLOMERULAR FILTRATION RATE > 60.0 (>56); GLUCOSE, FASTING 400 MG/DL (70-100); MAGNESIUM LEVEL 1.8 MG/DL (1.8-2.4); POTASSIUM SERUM 4.5 MEQ/L (3.5-5.1); SODIUM LEVEL 137 MEQ/L (136-145); TOTAL PROTEIN 6.7 GM/DL (6.4-8.2)
[2018-05-09 08:00] VITALS: BP 136/82
[2018-05-09] MEDS: PANTOPRAZOLE 40MG TAB (PROTONIX) PO SCH (08:05)
[2018-05-09] MEDS: APIXABAN 5 MG TAB (ELIQUIS) PO SCH (08:06)
[2018-05-09] MEDS: DOXYCYCLINE HYCLATE 100 MG TAB PO SCH (08:06)
[2018-05-09] MEDS: NICOTINE 21MG/24HR 1 EA TRANSDERMAL TD SCH (08:07)
[2018-05-09] MEDS: LEVEMIR (INSULIN DETEMIR) 1 UNITS/0.01ML SC SCH (08:07)
[2018-05-09] MEDS: HumaLOG INSULIN (NovoLOG) PER UNIT SC SCH (08:08)
[2018-05-09] MEDS ORDERED: predniSONE 20 MG TAB PO SCH (09:00)
[2018-05-09] MEDS ORDERED: ELIQ5TAB PO (09:23)
[2018-05-09] MEDS ORDERED: PRED10TA2 PO (09:23)
[2018-05-09] MEDS ORDERED: DOXY-350 PO (09:23)
[2018-05-09] MEDS ORDERED: CEFD1CAP8 PO (09:23)
--- NOTE | 2018-05-09 09:39 | IPN ---
DATE OF SERVICE: 05/09/2018 SUBJECTIVE: Patient seen and examined at bedside, hospital stay day 4. Patient reports no acute events overnight. He did not wear his BiPAP last night because he "forgot." He did say that when he tried to stand up and walk around yesterday, he had difficulty with some wheezing and some shortness of breath. He believed this was because he had not been up in several days. We informed him that we contacted his home care to adjust his BiPAP setting and that he would likely need a sleep study in the next 1-2 weeks and then follow-up with Dr. Morrison at the clinic afterwards. He voiced understanding and agreement with this plan. Overnight, he denied any chest pain, fevers, chills, nausea, vomiting, abdominal pain or other difficulties. OBJECTIVE: VITALS: Temperature 97.6, heart rate 96, respiratory rate 23, blood pressure 136/82, satting 94% on 4 liters. GENERAL: Patient is sitting comfortably in chair at bedside doing a DuoNeb treatment. He is in no acute distress, alert and oriented times three. HEENT: Normocephalic, atraumatic. Sclera nonicteric. Talking comfortably, speaking without difficulty breathing. CARDIOVASCULAR: Regular rate and rhythm, normal S1 and S2, no murmurs, gallops, or rubs. LUNGS: Clear to auscultation bilaterally. Wheezing is present throughout all lung thakkar with prominent rhonchi in the left upper lobe. ABDOMEN: Obese, soft, nondistended, nontender. He still has a hyperpigmented rash below his left breast that is unchanged since admission. EXTREMITIES: No lower extremity edema or calf tenderness. LABORATORIES: White blood cell count of 14.3, hemoglobin 13.5, hematocrit of 42.4, platelets of 272. Sodium 137, potassium 4.5, chloride 99, CO2 of 32, BUN of 20, creatinine of 0.82, glucose of 400, CRP of 0.34. One blood culture came back positive for Staphylococcus epidermidis. ASSESSMENT/PLAN: Mr. Chavez is a 47-year-old male presenting with past medical history of chronic obstructive pulmonary disease (COPD) on home oxygen, obstructive sleep apnea (RAE) on CPAP, presenting with acute on chronic hypercarbic respiratory failure secondary to an acute COPD exacerbation/pneumonia. Today is his first day of only oral steroids. We recommend starting a steroid taper every two days. We recommend switching to by mouth Avelox for his COPD exacerbation/pneumonia and we recommend a steroid taper every two days. Currently he is on 60 mg oral steroids. We also recommend a follow-up CT scan to look for clearance of the infiltrate in the next 4-6 weeks. We did speak with him at length that we spoke with home care about adjusting his BiPAP settings to adjust them to what they have been inpatient and we recommended a sleep study in the next 1-2 weeks to ensure that his settings were correct. Finally, the patient is to follow-up with Dr. Morrison at the clinic in the next 2-3 weeks after his sleep study has been completed. Please do not hesitate to call with any questions or concerns. My faculty preceptor for this patient encounter was physically present during the encounter and was fully available. All aspects of the patient interview, examination, medical decision making process, and medical care plan development were reviewed and approved by the faculty preceptor. The faculty preceptor is aware and concurs with the plan as stated in the body of this note and will attest to such by his/her co-signature. I, Lona Morrison, have conducted an independent examination and agree with the above plan as discussed during rounds. SIDRA
--- NOTE | 2018-05-09 13:18 | DS.PDOC ---
Discharge Summary General Date of Admission May 06, 2018 at 20:28 Date of Discharge 05/09/2018 Discharge Summary PROCEDURES PERFORMED DURING STAY: [None]. ADMITTING DIAGNOSES / DISCHARGE DIAGNOSES: Shortness of breath - likely 2/2 acute COPD exacerbation, possible CAP Pericardial effusion - etiology unclear RAE on BiPAP HTN DM2 DLP Hx of DVT Multiple CVA's Morbid obesity GI prophylaxis DVT prophylaxis COMPLICATIONS/CHIEF COMPLAINT: Shortness of breath / Confusion HISTORY OF PRESENT ILLNESS: Patient is a 47-year-old male with PMHx of COPD on O2 (2-3L), RAE on CPAP, HTN, DM2, DLP, DVT (on anticoagulation), Multiple CVA's, Morbid obesity who presented to the ER with progressive shortness of breath associated with a productive cough of whitish sputum. In the emergency room, patient was found to be short of breath and was admitted to the hospitalist service for further evaluation and treatment. He was suspected to have a COPD exacerbation and was placed in the ICU for BiPAP support. Pulmonary was consult and for assistance. HOSPITAL COURSE: Shortness of breath - likely 2/2 acute COPD exacerbation, possible CAP - Resolution of symptoms - Physical with no significant wheezing - ABG shows improvement of PCO2 - CRP continues to trend down - CT chest 05/07: No CT evidence of pulmonary embolism or aortic dissection. Mild to moderate pericardial effusion. Perihilar fibro atelectatic change. Left lower lobe infiltrate is new since the prior study. - CXR 05/06: Cardiomegaly and increased interstitial opacities bilaterally appearing similar to the prior study of 09/12/2017. - c/w Ceftriaxone and Doxycycline (Day #4); will complete antibiotic course as outpatient - Prednisone has been started; s/p Solumedrol - c/w Inhaled therapy as ordered - Pulmonary on consultation; appreciate their input Pericardial effusion - etiology unclear; unlikely 2/2 malignancy, - Discussed with patient about possible etiologies; advised that the likelihood of malignant effusion is low, less likely infectious, - ECHO 05/07: moderate circumferential pericardial effusion without any signs of hemodynamic compromise - CRP trending down - RF negative; DENNIS pending - Advised patient to have repeat echocardiogram to evaluate for re-evaluation of pericardial effusion - Cardiothoracic surgery on consultation; currently no plans for intervention; will arrange for outpatient follow up RAE on BiPAP - Has a BiPAP device at home; however is non-compliant - Pulmonary has arranged for change of outpatient BiPAP settings; appreciate their help HTN - BP well controlled - c/w Lisinopril DM2 - c/w ISS and Levemir (at home dose) DLP - c/w Atorvastatin Hx of DVT - Has been on Coumadin for full anticoagulation as an outpatient - c/w Eliquis; outpatient coverage confirmed Multiple CVA's - Has been told to remain on anticoagulation for this - c/w Eliquis Morbid obesity - complicating medical care GI prophylaxis - c/w Protonix DVT prophylaxis - c/w full anticoagulation with Eliquis DISCHARGE MEDICATIONS: Please see below. ALLERGIES: Please see below. PHYSICAL EXAMINATION ON DISCHARGE: Vitals (See below) General: Lying in bed, no acute distress, comfortable, AAOx3 HEENT: NC, AT CVS: RRR, +S1S2 Lungs: No significant wheezing / rhonchi / rales Abdomen: Soft, ND, non-tender, morbid obesity Extremities: No evidence of LE edema, - Calf tenderness LABORATORY DATA: Please see below. ACTIVITY: [As tolerated]. DISCHARGE PLAN: Follow up with Dr. Babcock, Dr. Morrison and Dr. Lance within 7 days Advised outpatient repeat of ECHO Remain compliant with treatment plan and medications Return to the ER if you experience any problems DISPOSITION: Home DISCHARGE CONDITION: [Stable]. TIME SPENT ON DISCHARGE: Greater than [35] minutes. Vital Signs/I&Os Vital Signs Date Time Temp Pulse Resp B/P (MAP) Pulse Ox O2 Delivery O2 Flow Rate FiO2 05/09/18 08:00 4.0 05/09/18 08:00 97.9 96 23 136/82 (100) 94 05/08/18 04:00 35 05/07/18 04:25 BIPAP/CPAP I&O- Last 24 Hours up to 6 AM 05/09/18 06:00 Intake Total 3590 ml Output Total 750 ml Balance 2840 ml Laboratory Data Labs 24H Laboratory Tests 2 05/08/18 17:11: Bedside Glucose (Misc Panel) 400H 05/08/18 20:37: Bedside Glucose (Misc Panel) 294H 05/09/18 04:42: Immature Granulocyte % (Auto) 1.2, White Blood Count 14.3H, Red Blood Count 4.54, Hemoglobin 13.5, Hematocrit 42.4, Mean Corpuscular Volume 93.4, Mean Corpuscular Hemoglobin 29.7, Mean Corpuscular Hemoglobin Concent 31.8L, Red Cell Distribution Width 13.0, Platelet Count 272, Neutrophils (%) (Auto) 79.1H, Lymphocytes (%) (Auto) 12.8L, Monocytes (%) (Auto) 6.7H, Eosinophils (%) (Auto) 0.0, Basophils (%) (Auto) 0.2, Neutrophils # (Auto) 11.3H, Lymphocytes # (Auto) 1.8, Monocytes # (Auto) 1.0H, Eosinophils # (Auto) 0.0, Basophils # (Auto) 0.0, Nucleated Red Blood Cells % (auto) 0.0, Anion Gap 6L, Glomerular Filtration Rate > 60.0, Blood Urea Nitrogen 20H, Creatinine 0.82, Sodium Level 137, Potassium Level 4.5, Chloride Level 99, Carbon Dioxide Level 32, Calcium Level 7.2L, Aspartate Amino Transf (AST/SGOT) 23, Alanine Aminotransferase (ALT/SGPT) 49, Alkaline Phosphatase 77, Total Bilirubin 0.3, Total Protein 6.7, Albumin 2.9L, Magnesium Level 1.8, C-Reactive Protein, Quantitative 0.34H, Albumin/Globulin Ratio 0.76L CBC/BMP Laboratory Tests 05/09/18 04:42 Red Blood Count 4.54, Mean Corpuscular Volume 93.4, Mean Corpuscular Hemoglobin 29.7, Mean Corpuscular Hemoglobin Concent 31.8 L, Red Cell Distribution Width 13.0, Neutrophils (%) (Auto) 79.1 H, Lymphocytes (%) (Auto) 12.8 L, Monocytes (%) (Auto) 6.7 H, Eosinophils (%) (Auto) 0.0, Basophils (%) (Auto) 0.2, Neutrophils # (Auto) 11.3 H, Lymphocytes # (Auto) 1.8, Monocytes # (Auto) 1.0 H, Eosinophils # (Auto) 0.0, Basophils # (Auto) 0.0, Calcium Level 7.2 L, Aspartate Amino Transf (AST/SGOT) 23, Alanine Aminotransferase (ALT/SGPT) 49, Alkaline Phosphatase 77, Total Bilirubin 0.3, Total Protein 6.7, Albumin 2.9 L FSBS Laboratory Tests Test 05/08/18 17:11 05/08/18 20:37 Range/Units Bedside Glucose (Misc Panel) 400 294 70-105 MG/DL Microbiology Microbiology 05/07/18 Blood Culture - Preliminary, Resulted No Growth after 48 hours. All Specime... 05/07/18 Blood Culture - Preliminary, Resulted No Growth after 48 hours. All Specime... 05/06/18 Blood Culture - Final, Complete Staphylococcus Epidermidis 05/07/18 Gram Stain - Final, Complete 05/07/18 Sputum Culture - Final, Complete 05/06/18 Respiratory Virus Panel (PCR) (YOSEF) - Final, Complete Discharge Medications Scheduled Apixaban Base (Eliquis) 5 Mg Tab, 1 TAB PO BID Atorvastatin Calcium (Lipitor) 80 Mg Tab, 80 MG PO QPM, (Reported) Budesonide/Formoterol (Symbicort 160-4.5 Mcg/Act) 60 Puff/Inhaler Aers, 2 PUFF INH BID, (Reported) Cefdinir (Cefdinir) 300 Mg Cap, 1 CAP PO BID Doxycycline Hyclate (Doxycycline) 100 Mg Cap, 1 CAP PO BID Insulin Glargine (Lantus) 1 Units/0.01 Ml Susp, 90 UNITS SC BID, (Reported) Lisinopril (Lisinopril) 10 Mg Tab, 10 MG PO DAILY, (Reported) Metformin Hydrochloride (Metformin HCl) 1,000 Mg Tab, 1,000 MG PO BID, (Reported) Multivitamins *[facility] STOCKED* (Thera M Plus *[facility] STOCKED*) 1 Tab Tab, 1 TAB PO DAILY, (Reported) Prednisone (Prednisone) 10 Mg Tab, 10 MG PO TAPER Take 4 tabs daily x 3 days, then 3 tabs daily x 3 days, then 2 tabs daily x 3 days, then 1 tab daily x 3 days and stop Sitagliptin Phosphate (Januvia) 100 Mg Tab, 100 MG PO DAILY, (Reported) Vitamin D (Drisdol) 50,000 Unit Cap, 50,000 UNIT PO Q2WK, (Reported) EVERY OTHER SUNDAY Scheduled PRN Acetaminophen (APAP Extra Strength) 500 Mg Tab, 500 MG PO Q6H PRN for PAIN, (Reported) Albuterol Sulfate (Proair Hfa) 108 Mcg/Act Aer, 2 PUFF INH QID PRN for SHORTNESS OF BREATH, (Reported) Albuterol Sulfate (Albuterol Sulfate) 2.5 Mg/3 Ml Nebu, 2.5 MG INH QID PRN for SHORTNESS OF BREATH, (Reported) Bismuth Subsalicylate (Pepto-Bismol) 262 Mg/15 Ml Jaye, 30 ML PO ASDIRECTED PRN for INDIGESTION, (Reported) Fluticasone Propionate (Flonase Allergy Relief) 50 Mcg/Act Spr, 2 SPRAYS NARES DAILY PRN for ALLERGIES, (Reported) Guaifenesin (Mucinex) 600 Mg Tab, 600 MG PO DAILY PRN for COUGH, (Reported) Allergies Coded Allergies: Azithromycin (Verified Allergy, Intermediate, Rash, 05/07/18) DEANDRE TRAMMELL MD May 09, 2018 13:18
[2018-05-09] MEDS ORDERED: SYMB16INH INH (13:24)
[2018-05-09 18:42] LABS: ANTINUCLEAR ANTIBODIES DIRECT Negative (Negative)
[2018-05-11 00:07] LABS: ANA (HEP2) Negative (.)
== END 2018-05-09 13:31 | disposition home or self-care (01) | DRG 139 ==
LOC: EDBD 15:25 → M ED 15:25 → M ED INP 20:28 → M ICU 21:33
PROVIDERS: ADMIT Hospitalist; ATTEND Internal Medicine
DX: J18.9 Pneumonia, unspecified organism (principal); J96.21 Acute and chronic respiratory failure with hypoxia; E87.2 Acidosis; I31.3 Pericardial effusion (noninflammatory); J44.0 Chronic obstructive pulmonary disease with (acute) lower respiratory infection; K92.2 Gastrointestinal hemorrhage, unspecified; Z99.81 Dependence on supplemental oxygen; J44.1 Chronic obstructive pulmonary disease with (acute) exacerbation; G47.33 Obstructive sleep apnea (adult) (pediatric); E66.01 Morbid (severe) obesity due to excess calories; Z68.43 Body mass index [BMI] 50.0-59.9, adult; F17.210 Nicotine dependence, cigarettes, uncomplicated; E11.9 Type 2 diabetes mellitus without complications; I10 Essential (primary) hypertension; E78.5 Hyperlipidemia, unspecified; Z86.73 Personal history of transient ischemic attack (TIA), and cerebral infarction without residual deficits; Z86.718 Personal history of other venous thrombosis and embolism; Z79.01 Long term (current) use of anticoagulants; Z79.4 Long term (current) use of insulin; Z79.899 Other long term (current) drug therapy

== ENCOUNTER → 2018-06-10 | Outpatient (CLI) | payer MEDICAID ==
[~2018-06-10] MED LIST changes: +APAP500T10 PO; +CEFD1CAP8 PO; +COUM1TAB17 PO; +DOXY-350 PO; +ELIQ5TAB PO; +JANU100T PO; +MUCI600T31 PO; +PEPT262S PO; +SYMB16INH INH; +VITA50005; +WARF-18 PO; +WARF-22 PO
--- NOTE | 2018-06-10 14:37 | PFTRPT ---
Height: 62.00 Inches Weight: 288.00 Lbs BSA: 2.23 Diagnosis: J44.9 DATE OF PROCEDURE: 06/10/2018 ORDERED BY: Dr. Morrison Spirometry: Pre and post bronchodilator study of excellent technical quality. Forced vital capacity reduced. FEV1 out of proportion. Obstructive index is, therefore, reduced. Flow Volume Loop: Expiratory limb of the flow volume loop does suggest flow rate limitation. Favorable bronchodilator response is identified. Lung Volumes: Total lung capacity normal. Residual volume suggests air trapping. Diffusing Capacity: Diffusing capacity significantly reduced and does not correct for alveolar volume. Hemoglobin: Hemoglobin acceptable at 13.9. Airway Mechanics: Airway resistance elevated with a concomitant decrease in airway conductance. IMPRESSION: At least mild obstructive ventilatory impairment with underlying air trapping. Diffusing capacity impairment. Favorable bronchodilator response. Please correlate clinically. MTDD
== END ==
LOC: M CARPUL 07:57
PROVIDERS: ATTEND Internal Medicine Pulmonary Disease
DX: J44.9 Chronic obstructive pulmonary disease, unspecified (principal)

== ENCOUNTER → 2018-06-10 | Outpatient (CLI) | payer MEDICAID ==
--- NOTE | 2018-06-11 08:21 | ECHO ---
DATE OF PROCEDURE: 06/10/2018 INDICATION: Pericardial effusion. HEIGHT: 157 cm WEIGHT: 130 kg DIMENSIONS: IVS: 1.4 LV: 5.1 LVPW: 1.4 LA: 4.4 Aorta: 3.9 IVC: 2.1 Mitral E wave velocity: 78 A wave: 94 E prime septal: 10.4 E prime lateral: 8.2 FINDINGS: The study is of rather limited technical quality corresponding to patient body habitus. The left ventricle is of normal size. Mild left ventricular hypertrophy is present. There is probably normal LV systolic function based on poor views. The right ventricle was poorly visualized, but does not appear grossly enlarged. Both atria are enlarged at least moderately. Aortic valve is mildly sclerotic, I cannot comment much on its structure due to limited visualization. Mitral and tricuspid valves appear grossly normal. Pulmonic valve was not seen. Minimal non compressive pericardial effusion is noted. The inferior vena cava is dilated. Aortic root is borderline enlarged at 3.9 cm. Aortic arch and abdominal aorta were not seen. Doppler interrogation reveals no aortic stenosis or insufficiency. There is also competent mitral valve. Quality of evaluation of TR was poor so I cannot comment on its functionality. The pulmonic valve was not seen at all. Mitral inflow pattern and tissue Doppler imaging of mitral annulus reveal grade 1 diastolic dysfunction. CONCLUSIONS: 1. Study is of very limited technical quality. 2. Normal LV size with mild LVH and probably preserved LV systolic function. Grade 1 diastolic dysfunction. 3. No significant valvular disease. 4. Likely elevated central venous pressure. 5. Unable to estimate pulmonary artery pressure. 6. Trace pericardial effusion. 7. Borderline dilated aortic root (3.9 cm). 8. Compared to prior echocardiogram from April 2018, pericardial effusion is probably smaller than it was previously. COMMENT: Subacute bacterial endocarditis (SBE) prophylaxis is not recommended.
== END ==
LOC: M CARPUL 07:53
PROVIDERS: ATTEND Obstetrics & Gynecology
DX: I31.3 Pericardial effusion (noninflammatory) (principal); R93.9 Diagnostic imaging inconclusive due to excess body fat of patient

== ENCOUNTER → 2018-07-06 | Outpatient (CLI) | payer MEDICAID ==
[~2018-07-06] MED LIST changes: -/WARF5TA; +COUM1TAB17
--- NOTE | 2018-07-06 14:43 | REP ---
Chest x-ray: Two views. History: COPD . Comparison study: May 06, 2018 . Findings: The lungs are mildly hyper inflated and free of infiltrate. The pleural angles are sharp. The heart size is normal. Pulmonary vasculature is not increased. No significant bony abnormality is seen. Impression: Mild hyperinflation, otherwise negative chest x-ray. Electronically Signed by Marc Abbasi MD 07/06/2018 02:34 P
== END ==
LOC: M RAD 11:49
PROVIDERS: ATTEND Nurse Practitioner Family
DX: J44.9 Chronic obstructive pulmonary disease, unspecified (principal); R06.2 Wheezing

== ENCOUNTER → 2018-07-06 | Outpatient (REF) | payer MEDICAID ==
[2018-07-06 14:01] LABS: INFLUENZA A AMPLIFICATION NEGATIVE (NEGATIVE); INFLUENZA B AMPLIFICATION NEGATIVE (NEGATIVE)
== END ==
LOC: M WUC 12:41
PROVIDERS: ATTEND Nurse Practitioner Family
DX: J11.1 Influenza due to unidentified influenza virus with other respiratory manifestations (principal)

== ENCOUNTER → 2018-08-02 | Outpatient (CLI) | payer MEDICAID ==
[2018-08-02 13:51] LABS: APPEARANCE, URINE CLEAR (CLEAR); BACTERIA, URINE AUTO NEGATIVE (NEGATIVE); BILIRUBIN, URINE AUTO NEGATIVE (NEGATIVE); BLOOD, URINE BLOOD NEGATIVE (NEGATIVE); COLOR, URINE YELLOW (YELLOW); GLUCOSE, URINE (UA) AUTO NEGATIVE (NEGATIVE); KETONE, URINE AUTO TRACE mg/dL (NEGATIVE); LEUKOCYTE ESTERASE, URINE AUTO NEGATIVE (NEGATIVE); MUCUS, URINE SMALL (NEGATIVE); NITRITE, URINE AUTO NEGATIVE (NEGATIVE); PROTEIN, URINE AUTO 2+ mg/dL (NEGATIVE); RBC, URINE AUTO 0 /HPF (0-3); SPECIFIC GRAVITY URINE AUTO 1.023 (1.002-1.035); SQUAMOUS EPITHELIAL CELL UR AU 1 /HPF (0-6); UROBILINOGEN, URINE AUTO 0.2 mg/dL (0.0-2.0); WBC, URINE AUTO 3 /HPF (0-3)
[2018-08-02 14:14] LABS: ALBUMIN 3.4 GM/DL (3.2-5.2); BLOOD UREA NITROGEN 11 MG/DL (7-18); CARBON DIOXIDE LEVEL 33 MEQ/L (21-32); CHLORIDE LEVEL 99 MEQ/L (98-107); GLOMERULAR FILTRATION RATE > 60.0 (>56); GLUCOSE, FASTING 162 MG/DL (70-100); PHOSPHORUS LEVEL 3.2 MG/DL (2.5-4.9); POTASSIUM SERUM 4.2 MEQ/L (3.5-5.1); SODIUM LEVEL 137 MEQ/L (136-145)
[2018-08-02 14:26] LABS: TOTAL 25(OH) VITAMIN D 33.4 NG/ML (30.0-100.0)
== END ==
LOC: M SMT 11:39
PROVIDERS: ATTEND Internal Medicine Nephrology
DX: E11.22 Type 2 diabetes mellitus with diabetic chronic kidney disease (principal); N18.1 Chronic kidney disease, stage 1; E55.9 Vitamin D deficiency, unspecified; E66.01 Morbid (severe) obesity due to excess calories

== ENCOUNTER → 2018-08-02 | Outpatient (CLI) | payer MEDICAID ==
[2018-08-02 14:04] LABS: HEMOGLOBIN A1c 9.6 %
[2018-08-02 14:21] LABS: BLOOD UREA NITROGEN 12 MG/DL (7-18); CALCIUM LEVEL 8.9 MG/DL (8.5-10.1); CARBON DIOXIDE LEVEL 31 MEQ/L (21-32); CHLORIDE LEVEL 98 MEQ/L (98-107); CHOLESTEROL LEVEL 159 MG/DL (<200); CHOLESTEROL RISK RATIO 4.297 (<5); CREATININE FOR GFR 0.72 MG/DL (0.70-1.30); GLOMERULAR FILTRATION RATE > 60.0 (>56); GLUCOSE, FASTING 163 MG/DL (70-100); HDL CHOLESTEROL 37 MG/DL (>40); LDL CHOLESTEROL 44 MG/DL (<100); NON-HDL-C 122 MG/DL; POTASSIUM SERUM 4.1 MEQ/L (3.5-5.1); SODIUM LEVEL 136 MEQ/L (136-145); TRIGLYCERIDES LEVEL 392 MG/DL (<150)
[2018-08-02 14:26] LABS: TOTAL 25(OH) VITAMIN D 31.7 NG/ML (30.0-100.0)
== END ==
LOC: M SMT 11:43
PROVIDERS: ATTEND Obstetrics & Gynecology
DX: E11.21 Type 2 diabetes mellitus with diabetic nephropathy (principal); E55.9 Vitamin D deficiency, unspecified; E78.5 Hyperlipidemia, unspecified; I10 Essential (primary) hypertension

== ENCOUNTER 2018-09-26 10:41 | Emergency (ER) | payer MEDICAID ==
[~2018-09-26] VITALS: Ht 157.5 cm; Wt 138.5 kg
[2018-09-26] MEDS ORDERED: DILT60CASR PO (11:15)
[2018-09-26] MEDS ORDERED: TRUL0.5I SQ (11:15)
--- NOTE | 2018-09-26 11:50 | REP ---
Clinical: Pain and swelling Technique: AP, lateral, bilateral oblique views left hand . Findings: Generalized age-related changes are appreciated. Diffuse swelling noted. No obvious acute fracture. There is a 2.5 mm density adjacent to the head of the second digit proximal phalanx which may represent chronic bone fragment or small foreign body and may warrant clinical correlation. No subcutaneous emphysema. Impression: Degenerative changes. Soft tissue swelling. As above. Electronically Signed by Fareed Sams MD 09/26/2018 11:42 A
[2018-09-26 12:00] LABS: HEMATOCRIT 41.8 % (42.0-52.0); HEMOGLOBIN 13.6 g/dl (13.5-17.5); MEAN CORPUSCULAR HEMOGLOBIN 30.2 pg (27.0-33.0); MEAN CORPUSCULAR HGB CONC 32.5 g/dl (32.0-36.5); MEAN CORPUSCULAR VOLUME 92.7 fl (80.0-96.0); PLATELET COUNT, AUTOMATED 277 10^3/uL (150-450); RED BLOOD COUNT 4.51 10^6/uL (4.30-6.10); WHITE BLOOD COUNT 12.2 10^3/uL (4.0-10.0)
[2018-09-26 12:30] LABS: ERYTHROCYTE SEDIMENTATION RATE 45 mm/hr (0-20)
[2018-09-26] MEDS ORDERED: DOXY100C37 PO ×2 (13:02→13:07)
[2018-09-26 13:10] VITALS: BP 141/89
[2018-09-26] MEDS ORDERED: DOXYCYCLINE HYCLATE 100 MG TAB PO ONE (13:15)
== END 2018-09-26 13:28 | disposition home or self-care (01) ==
LOC: M ED 10:41
DX: L03.114 Cellulitis of left upper limb (principal); I50.9 Heart failure, unspecified; E11.9 Type 2 diabetes mellitus without complications; I10 Essential (primary) hypertension; J44.9 Chronic obstructive pulmonary disease, unspecified; E66.01 Morbid (severe) obesity due to excess calories; E78.5 Hyperlipidemia, unspecified; K21.9 Gastro-esophageal reflux disease without esophagitis; G47.30 Sleep apnea, unspecified; M54.9 Dorsalgia, unspecified; Z86.73 Personal history of transient ischemic attack (TIA), and cerebral infarction without residual deficits; Z87.891 Personal history of nicotine dependence; Z79.01 Long term (current) use of anticoagulants; Z79.4 Long term (current) use of insulin; Z79.899 Other long term (current) drug therapy; Z88.1 Allergy status to other antibiotic agents

== ENCOUNTER → 2019-01-03 | Outpatient (CLI) | payer MEDICAID ==
[~2019-01-03] MED LIST changes: +DILT60CASR PO; +DOXY100C37 PO; +LEVO750T13 PO; +MULTCAP PO; +TRUL0.5I SC
[2019-01-03 13:20] LABS: HEMATOCRIT 42.6 % (42.0-52.0); HEMOGLOBIN 13.6 g/dl (13.5-17.5); MEAN CORPUSCULAR HEMOGLOBIN 29.4 pg (27.0-33.0); MEAN CORPUSCULAR HGB CONC 31.9 g/dl (32.0-36.5); MEAN CORPUSCULAR VOLUME 92.2 fl (80.0-96.0); PLATELET COUNT, AUTOMATED 277 10^3/uL (150-450); RED BLOOD COUNT 4.62 10^6/uL (4.30-6.10); WHITE BLOOD COUNT 10.5 10^3/uL (4.0-10.0)
[2019-01-03 13:32] LABS: BLOOD UREA NITROGEN 12 MG/DL (7-18); CALCIUM LEVEL 8.7 MG/DL (8.5-10.1); CARBON DIOXIDE LEVEL 32 MEQ/L (21-32); CHLORIDE LEVEL 99 MEQ/L (98-107); CHOLESTEROL LEVEL 132 MG/DL (<200); CHOLESTEROL RISK RATIO 3.882 (<5); CREATININE FOR GFR 0.68 MG/DL (0.70-1.30); GLOMERULAR FILTRATION RATE > 60.0 (>56); GLUCOSE, FASTING 228 MG/DL (70-100); HDL CHOLESTEROL 34 MG/DL (>40); NON-HDL-C 98 MG/DL; POTASSIUM SERUM 4.5 MEQ/L (3.5-5.1); SODIUM LEVEL 137 MEQ/L (136-145); TRIGLYCERIDES LEVEL 426 MG/DL (<150)
[2019-01-03 13:46] LABS: HEMOGLOBIN A1c 9.2 %
[2019-01-03 14:16] LABS: MAU/CREAT RATIO 1621.5 MCG/MG (0.0-30.0)
== END ==
LOC: M SMT 10:36
PROVIDERS: ATTEND Obstetrics & Gynecology
DX: E11.21 Type 2 diabetes mellitus with diabetic nephropathy (principal); E55.9 Vitamin D deficiency, unspecified; I10 Essential (primary) hypertension

== ENCOUNTER 2019-05-05 13:36 | Emergency (ER) | payer MEDICAID ==
[~2019-05-05] VITALS: Ht 157.5 cm; Wt 140.0 kg
[2019-05-05] MEDS ORDERED: VITA50005 (14:40)
[2019-05-05] MEDS ORDERED: LANTINJ4 SC (14:40)
[2019-05-05] MEDS ORDERED: LIDOCAINE 2% MDV 20 ML VIAL SC ONE (15:45)
[2019-05-05 15:53] LABS: BASO % 0.2 % (0.0-1.0); EOS # 0.2 10^3/uL (0.0-0.5); HEMATOCRIT 42.7 % (42.0-52.0); HEMOGLOBIN 13.4 g/dl (13.5-17.5); LYMPH # 3.8 10^3/uL (1.5-5.0); LYMPH % 31.4 % (24.0-44.0); MEAN CORPUSCULAR HEMOGLOBIN 27.8 pg (27.0-33.0); MEAN CORPUSCULAR HGB CONC 31.4 g/dl (32.0-36.5); MEAN CORPUSCULAR VOLUME 88.6 fl (80.0-96.0); MONO % 8.5 % (0.0-5.0); NEUTROPHILS # 6.9 10^3/uL (1.5-8.5); NEUTROPHILS % 57.6 % (36.0-66.0); PLATELET COUNT, AUTOMATED 272 10^3/uL (150-450); RED BLOOD COUNT 4.82 10^6/uL (4.30-6.10); WHITE BLOOD COUNT 12.1 10^3/uL (4.0-10.0)
[2019-05-05] MEDS ORDERED: ISOVUE-370 76% 100ML VIAL (Q9967) As Ordered ONE (16:05)
[2019-05-05 16:35] LABS: ERYTHROCYTE SEDIMENTATION RATE 55 mm/hr (0-20)
[2019-05-05] MEDS ORDERED: NEOSPORIN TOP OINT 15GM TOP ONE (17:30)
[2019-05-05 17:54] VITALS: BP 125/73
[2019-05-05] MEDS ORDERED: DOXY-350 PO (17:59)
== END 2019-05-05 18:13 | disposition home or self-care (01) ==
LOC: M ED 13:36
DX: K11.5 Sialolithiasis (principal); L02.415 Cutaneous abscess of right lower limb; I50.9 Heart failure, unspecified; E11.9 Type 2 diabetes mellitus without complications; I10 Essential (primary) hypertension; J44.9 Chronic obstructive pulmonary disease, unspecified; Z79.01 Long term (current) use of anticoagulants; Z79.4 Long term (current) use of insulin; Z79.899 Other long term (current) drug therapy; Z88.1 Allergy status to other antibiotic agents
CPT/HCPCS: 36415; 70491; 80047; 85025; 85652; 86140; 87070; 87077; 87186; 87205; 99284; Q9967

== ENCOUNTER 2019-08-14 13:08 | Emergency (ER) | payer MEDICAID ==
[~2019-08-14] VITALS: Ht 157.5 cm; Wt 136.4 kg
[2019-08-14 13:09] VITALS: BP 132/76
[2019-08-14] MEDS ORDERED: ACETAMINOPHEN 500 MG TAB PO ONE (13:45)
--- NOTE | 2019-08-14 14:32 | REP ---
RIGHT KNEE, FIVE VIEWS: There is no evidence of an acute fracture, dislocation, or intrinsic bone disease. IMPRESSION: No fracture or dislocation. Electronically Signed by Jarad Cooney MD 08/14/2019 02:59 P
== END 2019-08-14 14:26 | disposition home or self-care (01) ==
LOC: M ED 13:08
DX: M25.561 Pain in right knee (principal); E11.9 Type 2 diabetes mellitus without complications; I10 Essential (primary) hypertension; J44.9 Chronic obstructive pulmonary disease, unspecified; G47.33 Obstructive sleep apnea (adult) (pediatric); K21.9 Gastro-esophageal reflux disease without esophagitis; F41.9 Anxiety disorder, unspecified; F32.9 Major depressive disorder, single episode, unspecified; Z79.01 Long term (current) use of anticoagulants; Z79.4 Long term (current) use of insulin; Z79.899 Other long term (current) drug therapy; Z87.891 Personal history of nicotine dependence; Z88.1 Allergy status to other antibiotic agents

== ENCOUNTER → 2019-08-28 | Outpatient (CLI) | payer MEDICAID ==
[2019-08-28 12:33] LABS: CHOLESTEROL RISK RATIO 3.944 (<5)
[2019-08-28 12:42] LABS: TOTAL 25(OH) VITAMIN D 38.6 NG/ML (30.0-100.0)
[2019-08-28 13:08] LABS: HEMOGLOBIN A1c 9.9 %
== END ==
LOC: M LAB 11:26
PROVIDERS: ATTEND Obstetrics & Gynecology
DX: E11.21 Type 2 diabetes mellitus with diabetic nephropathy (principal); E55.9 Vitamin D deficiency, unspecified; E78.5 Hyperlipidemia, unspecified

== ENCOUNTER → 2019-09-09 | Outpatient (CLI) | payer MEDICAID ==
--- NOTE | 2019-09-09 16:03 | REP ---
REASON FOR EXAM: Medial knee pain. There are no priors for comparison. Patient denies trauma. Motion artifact decreases the sensitivity of the examination. The anterior and posterior horns of both medial and lateral meniscus are within normal limits. The anterior and posterior cruciate ligaments are intact. The quadriceps and patellar tendons are intact. The medial and lateral collateral ligaments are intact, however, T2 hypersignal is seen both superficial and deep to the intact medial collateral ligament. In addition, there is a gap between the medial meniscus and medial collateral ligament with T2 hypersignal seen filling that gap. The medial and lateral patellar retinacula are grossly intact, however, there is marked motion artifact on the actual dataset. There is significant patchy T1 hypersignal seen in the medial femoral condyles from anterior to posterior. In addition, there are two curvilinear low signal bands in both anterior and posterior medial femoral condylar components. There is a slight joint effusion. There is thinning and irregularity of all articular cartilages. IMPRESSION: 1. There is medial collateral ligamentous sprain with medial meniscocapsular separation. 2. There is significant marrow edema in the femur as described above seen in conjunction with curvilinear low signal bands suggestive of not only a trabecular fracture but possible hairline nondisplaced fracture particularly affecting the articular surface of the mid portion of the medial femoral condyle. 3. There is a joint effusion. 4. Other findings on exam limitations as described above. Electronically Signed by Mitchel Decker DO 09/09/2019 05:03 P
== END ==
LOC: M RAD 12:59
PROVIDERS: ATTEND Obstetrics & Gynecology
DX: S83.411A Sprain of medial collateral ligament of right knee, initial encounter (principal); M62.06 Separation of muscle (nontraumatic), lower leg; M25.461 Effusion, right knee; X58.XXXA Exposure to other specified factors, initial encounter; Y92.89 Other specified places as the place of occurrence of the external cause

== ENCOUNTER → 2019-10-06 | Outpatient (CLI) | payer MEDICAID ==
[2019-10-06 13:03] LABS: APPEARANCE, URINE HAZY (CLEAR); BACTERIA, URINE AUTO NEGATIVE (NEGATIVE); BILIRUBIN, URINE AUTO NEGATIVE (NEGATIVE); BLOOD, URINE BLOOD NEGATIVE (NEGATIVE); COLOR, URINE AMBER (YELLOW); GLUCOSE, URINE (UA) AUTO 2+ mg/dL (NEGATIVE); KETONE, URINE AUTO TRACE mg/dL (NEGATIVE); LEUKOCYTE ESTERASE, URINE AUTO NEGATIVE (NEGATIVE); NITRITE, URINE AUTO NEGATIVE (NEGATIVE); PROTEIN, URINE AUTO 3+ mg/dL (NEGATIVE); RBC, URINE AUTO 0 /HPF (0-3); SPECIFIC GRAVITY URINE AUTO 1.023 (1.002-1.035); SQUAMOUS EPITHELIAL CELL UR AU 0 /HPF (0-6); UROBILINOGEN, URINE AUTO 0.2 mg/dL (0.0-2.0); WBC, URINE AUTO 2 /HPF (0-3)
[2019-10-06 13:08] LABS: BASO % 0.3 % (0.0-1.0); EOS # 0.2 10^3/uL (0.0-0.5); EOS % 1.4 % (0.0-3.0); HEMATOCRIT 42.6 % (42.0-52.0); HEMOGLOBIN 13.6 g/dl (13.5-17.5); LYMPH # 3.6 10^3/uL (1.5-5.0); LYMPH % 30.2 % (24.0-44.0); MEAN CORPUSCULAR HEMOGLOBIN 28.5 pg (27.0-33.0); MEAN CORPUSCULAR HGB CONC 31.9 g/dl (32.0-36.5); MEAN CORPUSCULAR VOLUME 89.1 fl (80.0-96.0); MONO # 0.8 10^3/uL (0.0-0.8); MONO % 6.5 % (0.0-5.0); NEUTROPHILS # 7.2 10^3/uL (1.5-8.5); NEUTROPHILS % 61.2 % (36.0-66.0); PLATELET COUNT, AUTOMATED 296 10^3/uL (150-450); RED BLOOD COUNT 4.78 10^6/uL (4.30-6.10); WHITE BLOOD COUNT 11.8 10^3/uL (4.0-10.0)
[2019-10-06 13:39] LABS: ALBUMIN 3.5 GM/DL (3.2-5.2); BLOOD UREA NITROGEN 7 MG/DL (7-18); CALCIUM LEVEL 8.8 MG/DL (8.5-10.1); CARBON DIOXIDE LEVEL 28 MEQ/L (21-32); CHLORIDE LEVEL 99 MEQ/L (98-107); CREATININE FOR GFR 0.67 MG/DL (0.70-1.30); GLOMERULAR FILTRATION RATE > 60.0 (>56); GLUCOSE, FASTING 234 MG/DL (70-100); PHOSPHORUS LEVEL 3.8 MG/DL (2.5-4.9); POTASSIUM SERUM 4.2 MEQ/L (3.5-5.1); SODIUM LEVEL 137 MEQ/L (136-145)
[2019-10-06 14:21] LABS: MAU/CREAT RATIO 821.7 MCG/MG (0.0-30.0)
== END ==
LOC: M LAB 11:41
PROVIDERS: ATTEND Nurse Practitioner Family
DX: N18.1 Chronic kidney disease, stage 1 (principal); E11.22 Type 2 diabetes mellitus with diabetic chronic kidney disease; D63.1 Anemia in chronic kidney disease

== ENCOUNTER → 2019-11-14 | Outpatient (CLI) | payer MEDICAID ==
[2019-11-14 10:23] LABS: CHOLESTEROL LEVEL 135 MG/DL (<200); HDL CHOLESTEROL 33 MG/DL (>40); NON-HDL-C 102 MG/DL; TRIGLYCERIDES LEVEL 404 MG/DL (<150)
[2019-11-14 10:46] LABS: HEMOGLOBIN A1c 9.5 %
== END ==
LOC: M LAB 08:32
PROVIDERS: ATTEND Internal Medicine Nephrology
DX: E11.9 Type 2 diabetes mellitus without complications (principal); E78.5 Hyperlipidemia, unspecified

== ENCOUNTER → 2020-05-10 | Outpatient (CLI) | payer MEDICAID ==
[~2020-05-10] MED LIST changes: +LISI10TA22 PO; -LISI10TA4 PO
[2020-05-10 11:51] LABS: BASO % 0.3 % (0.0-1.0); EOS # 0.3 10^3/uL (0.0-0.5); EOS % 2.2 % (0.0-3.0); HEMOGLOBIN 13.3 g/dl (13.5-17.5); LYMPH # 3.6 10^3/uL (1.5-5.0); LYMPH % 31.9 % (24.0-44.0); MEAN CORPUSCULAR HEMOGLOBIN 28.4 pg (27.0-33.0); MEAN CORPUSCULAR HGB CONC 31.7 g/dl (32.0-36.5); MEAN CORPUSCULAR VOLUME 89.7 fl (80.0-96.0); MONO % 8.5 % (2.0-8.0); NEUTROPHILS # 6.4 10^3/uL (1.5-8.5); NEUTROPHILS % 56.7 % (36.0-66.0); PLATELET COUNT, AUTOMATED 276 10^3/uL (150-450); RED BLOOD COUNT 4.68 10^6/uL (4.30-6.10); WHITE BLOOD COUNT 11.2 10^3/uL (4.0-10.0)
[2020-05-10 12:03] LABS: APPEARANCE, URINE CLEAR (CLEAR); BACTERIA, URINE AUTO NEGATIVE (NEGATIVE); BILIRUBIN, URINE AUTO NEGATIVE (NEGATIVE); BLOOD, URINE BLOOD NEGATIVE (NEGATIVE); COLOR, URINE YELLOW (YELLOW); GLUCOSE, URINE (UA) AUTO 3+ mg/dL (NEGATIVE); KETONE, URINE AUTO TRACE mg/dL (NEGATIVE); LEUKOCYTE ESTERASE, URINE AUTO NEGATIVE (NEGATIVE); NITRITE, URINE AUTO NEGATIVE (NEGATIVE); PROTEIN, URINE AUTO 3+ mg/dL (NEGATIVE); RBC, URINE AUTO 1 /HPF (0-3); SPECIFIC GRAVITY URINE AUTO 1.022 (1.002-1.035); SQUAMOUS EPITHELIAL CELL UR AU 0 /HPF (0-6); UROBILINOGEN, URINE AUTO 0.2 mg/dL (0.0-2.0); WBC, URINE AUTO 3 /HPF (0-3)
[2020-05-10 12:57] LABS: ALBUMIN 3.4 GM/DL (3.2-5.2); BLOOD UREA NITROGEN 9 MG/DL (7-18); CALCIUM LEVEL 8.3 MG/DL (8.5-10.1); CARBON DIOXIDE LEVEL 32 MEQ/L (21-32); CHLORIDE LEVEL 98 MEQ/L (98-107); CREATININE FOR GFR 0.76 MG/DL (0.70-1.30); GLOMERULAR FILTRATION RATE > 60.0 (>56); GLUCOSE, FASTING 248 MG/DL (70-100); PHOSPHORUS LEVEL 3.4 MG/DL (2.5-4.9); POTASSIUM SERUM 4.3 MEQ/L (3.5-5.1); SODIUM LEVEL 138 MEQ/L (136-145); TOTAL 25(OH) VITAMIN D 25.3 NG/ML (30.0-100.0)
== END ==
LOC: M LAB 11:07
PROVIDERS: ATTEND Nurse Practitioner Family
DX: N18.1 Chronic kidney disease, stage 1 (principal); D63.1 Anemia in chronic kidney disease; E55.9 Vitamin D deficiency, unspecified

== ENCOUNTER → 2020-10-04 | Outpatient (CLI) | payer MEDICAID ==
[~2020-10-04] MED LIST changes: -DOXY100C37 PO; +DOXY1CAP62 PO; +ERGO500029
[2020-10-04 12:01] LABS: BLOOD UREA NITROGEN 9 MG/DL (7-18); CALCIUM LEVEL 8.7 MG/DL (8.5-10.1); CARBON DIOXIDE LEVEL 36 MEQ/L (21-32); CHLORIDE LEVEL 99 MEQ/L (98-107); CHOLESTEROL LEVEL 125 MG/DL (<200); CHOLESTEROL RISK RATIO 3.787 (<5); CREATININE FOR GFR 0.59 MG/DL (0.70-1.30); GLOMERULAR FILTRATION RATE > 60.0 (>56); GLUCOSE, FASTING 145 MG/DL (70-100); HDL CHOLESTEROL 33 MG/DL (>40); LDL CHOLESTEROL 60 MG/DL (<100); NON-HDL-C 92 MG/DL; POTASSIUM SERUM 4.3 MEQ/L (3.5-5.1); SODIUM LEVEL 138 MEQ/L (136-145); TRIGLYCERIDES LEVEL 161 MG/DL (<150)
== END ==
LOC: M LAB 09:26
PROVIDERS: ATTEND Physician Assistant
DX: E78.5 Hyperlipidemia, unspecified (principal)

== ENCOUNTER → 2020-10-04 | Outpatient (CLI) | payer MEDICAID ==
[2020-10-04 11:50] LABS: HEMOGLOBIN A1c 9.4 %
[2020-10-04 12:07] LABS: ALBUMIN 3.4 GM/DL (3.2-5.2); ALT/SGPT 27 U/L (12-78); BILIRUBIN,TOTAL 0.3 MG/DL (0.2-1.0); BLOOD UREA NITROGEN 8 MG/DL (7-18); CARBON DIOXIDE LEVEL 34 MEQ/L (21-32); CHLORIDE LEVEL 101 MEQ/L (98-107); CHOLESTEROL LEVEL 122 MG/DL (<200); CHOLESTEROL RISK RATIO 3.485 (<5); CREATININE FOR GFR 0.59 MG/DL (0.70-1.30); GLOMERULAR FILTRATION RATE > 60.0 (>56); GLUCOSE, FASTING 146 MG/DL (70-100); HDL CHOLESTEROL 35 MG/DL (>40); LDL CHOLESTEROL 54 MG/DL (<100); NON-HDL-C 87 MG/DL; POTASSIUM SERUM 4.4 MEQ/L (3.5-5.1); SODIUM LEVEL 140 MEQ/L (136-145); TOTAL PROTEIN 7.6 GM/DL (6.4-8.2); TRIGLYCERIDES LEVEL 166 MG/DL (<150)
[2020-10-04 12:38] LABS: MAU/CREAT RATIO 443.8 MCG/MG (0.0-30.0)
== END ==
LOC: M LAB 09:29
PROVIDERS: ATTEND Student in an Organized Health Care Education/Training Program
DX: E11.21 Type 2 diabetes mellitus with diabetic nephropathy (principal)

== ENCOUNTER → 2020-10-04 | Outpatient (CLI) | payer MEDICAID ==
[2020-10-04 11:24] LABS: APPEARANCE, URINE HAZY (CLEAR); BACTERIA, URINE AUTO 1+ (NEGATIVE); BILIRUBIN, URINE AUTO NEGATIVE (NEGATIVE); BLOOD, URINE BLOOD NEGATIVE (NEGATIVE); COLOR, URINE YELLOW (YELLOW); GLUCOSE, URINE (UA) AUTO NEGATIVE (NEGATIVE); KETONE, URINE AUTO NEGATIVE (NEGATIVE); LEUKOCYTE ESTERASE, URINE AUTO 1+ (NEGATIVE); MUCUS, URINE SMALL (NEGATIVE); NITRITE, URINE AUTO NEGATIVE (NEGATIVE); PROTEIN, URINE AUTO 2+ mg/dL (NEGATIVE); RBC, URINE AUTO 1 /HPF (0-3); SPECIFIC GRAVITY URINE AUTO 1.016 (1.002-1.035); SQUAMOUS EPITHELIAL CELL UR AU 1 /HPF (0-6); UROBILINOGEN, URINE AUTO 0.2 mg/dL (0.0-2.0); WBC, URINE AUTO 17 /HPF (0-3)
[2020-10-04 11:28] LABS: HEMATOCRIT 50.3 % (42.0-52.0); HEMOGLOBIN 15.4 g/dl (13.5-17.5); MEAN CORPUSCULAR HEMOGLOBIN 27.5 pg (27.0-33.0); MEAN CORPUSCULAR HGB CONC 30.6 g/dl (32.0-36.5); PLATELET COUNT, AUTOMATED 271 10^3/uL (150-450); RED BLOOD COUNT 5.59 10^6/uL (4.30-6.10); WHITE BLOOD COUNT 13.7 10^3/uL (4.0-10.0)
[2020-10-04 11:59] LABS: ALBUMIN 3.5 GM/DL (3.2-5.2); BLOOD UREA NITROGEN 10 MG/DL (7-18); CALCIUM LEVEL 8.8 MG/DL (8.5-10.1); CARBON DIOXIDE LEVEL 35 MEQ/L (21-32); CHLORIDE LEVEL 99 MEQ/L (98-107); CREATININE FOR GFR 0.59 MG/DL (0.70-1.30); GLOMERULAR FILTRATION RATE > 60.0 (>56); GLUCOSE, FASTING 146 MG/DL (70-100); PHOSPHORUS LEVEL 3.8 MG/DL (2.5-4.9); POTASSIUM SERUM 4.4 MEQ/L (3.5-5.1); SODIUM LEVEL 138 MEQ/L (136-145)
== END ==
LOC: M LAB 09:32
PROVIDERS: ATTEND Nurse Practitioner Family
DX: N18.1 Chronic kidney disease, stage 1 (principal)

== ENCOUNTER → 2021-05-31 | Outpatient (CLI) | payer MEDICAID ==
[~2021-05-31] MED LIST changes: -CEFD1CAP8 PO; +CEFD300C41 PO; +DOXY-443 PO; -DOXY1CAP62 PO
== END ==
LOC: M RAD 11:56
PROVIDERS: ATTEND Student in an Organized Health Care Education/Training Program
DX: Z12.2 Encounter for screening for malignant neoplasm of respiratory organs (principal); Z87.891 Personal history of nicotine dependence; I31.3 Pericardial effusion (noninflammatory)

== ENCOUNTER → 2021-06-17 | Outpatient (CLI) | payer MEDICAID | LOC: M CARPUL 09:33 | PROVIDERS: ATTEND Student in an Organized Health Care Education/Training Program | DX: J44.9 Chronic obstructive pulmonary disease, unspecified (principal) ==

== ENCOUNTER → 2021-10-21 | Outpatient (CLI) | payer MEDICAID ==
[~2021-10-21] MED LIST changes: +ALBU2.5V10 INH; +ALBU2.5V10 NEB; -ALBU83IN INH; -ALBU83IN NEB
[2021-10-21 10:12] LABS: ALBUMIN 3.6 GM/DL (3.2-5.2); ALT/SGPT 24 U/L (12-78); BILIRUBIN,TOTAL 0.4 MG/DL (0.2-1.0); BLOOD UREA NITROGEN 9 MG/DL (7-18); CALCIUM LEVEL 9.4 MG/DL (8.5-10.1); CARBON DIOXIDE LEVEL 32 MEQ/L (21-32); CHLORIDE LEVEL 101 MEQ/L (98-107); CHOLESTEROL LEVEL 114 MG/DL (<200); CHOLESTEROL RISK RATIO 3.166 (<5); CREATININE FOR GFR 0.69 MG/DL (0.70-1.30); GLOMERULAR FILTRATION RATE > 60.0 (>56); GLUCOSE, FASTING 65 MG/DL (70-100); HDL CHOLESTEROL 36 MG/DL (>40); LDL CHOLESTEROL 42 MG/DL (<100); NON-HDL-C 78 MG/DL; POTASSIUM SERUM 3.7 MEQ/L (3.5-5.1); SODIUM LEVEL 140 MEQ/L (136-145); TOTAL PROTEIN 7.6 GM/DL (6.4-8.2); TRIGLYCERIDES LEVEL 179 MG/DL (<150)
== END ==
LOC: M LAB 08:54
PROVIDERS: ATTEND Student in an Organized Health Care Education/Training Program
DX: E78.5 Hyperlipidemia, unspecified (principal); I10 Essential (primary) hypertension; E11.8 Type 2 diabetes mellitus with unspecified complications

== ENCOUNTER → 2021-10-21 | Outpatient (CLI) | payer MEDICAID ==
[2021-10-21 09:38] LABS: BASO # 0.1 10^3/uL (0.0-0.2); BASO % 0.4 % (0.0-1.0); EOS # 0.4 10^3/uL (0.0-0.5); EOS % 2.3 % (0.0-3.0); HEMATOCRIT 45.1 % (42.0-52.0); HEMOGLOBIN 14.3 g/dl (13.5-17.5); LYMPH # 3.8 10^3/uL (1.5-5.0); LYMPH % 24.6 % (24.0-44.0); MEAN CORPUSCULAR HEMOGLOBIN 29.6 pg (27.0-33.0); MEAN CORPUSCULAR HGB CONC 31.7 g/dl (32.0-36.5); MEAN CORPUSCULAR VOLUME 93.4 fl (80.0-96.0); MONO # 1.2 10^3/uL (0.0-0.8); NEUTROPHILS # 9.9 10^3/uL (1.5-8.5); NEUTROPHILS % 64.2 % (36.0-66.0); PLATELET COUNT, AUTOMATED 280 10^3/uL (150-450); RED BLOOD COUNT 4.83 10^6/uL (4.30-6.10); WHITE BLOOD COUNT 15.3 10^3/uL (4.0-10.0)
[2021-10-21 09:42] LABS: APPEARANCE, URINE HAZY (CLEAR); BACTERIA, URINE AUTO 1+ (NEGATIVE); BILIRUBIN, URINE AUTO 1+ (NEGATIVE); BLOOD, URINE BLOOD NEGATIVE (NEGATIVE); COLOR, URINE AMBER (YELLOW); GLUCOSE, URINE (UA) AUTO NEGATIVE (NEGATIVE); KETONE, URINE AUTO TRACE mg/dL (NEGATIVE); LEUKOCYTE ESTERASE, URINE AUTO 1+ (NEGATIVE); MUCUS, URINE SMALL (NEGATIVE); NITRITE, URINE AUTO NEGATIVE (NEGATIVE); PROTEIN, URINE AUTO 3+ mg/dL (NEGATIVE); RBC, URINE AUTO 4 /HPF (0-3); SPECIFIC GRAVITY URINE AUTO 1.026 (1.002-1.035); SQUAMOUS EPITHELIAL CELL UR AU 0 /HPF (0-6); WBC, URINE AUTO 41 /HPF (0-3)
[2021-10-21 10:07] LABS: ALBUMIN 3.5 GM/DL (3.2-5.2); BLOOD UREA NITROGEN 9 MG/DL (7-18); CALCIUM LEVEL 9.5 MG/DL (8.5-10.1); CARBON DIOXIDE LEVEL 32 MEQ/L (21-32); CHLORIDE LEVEL 100 MEQ/L (98-107); CREATININE FOR GFR 0.67 MG/DL (0.70-1.30); GLOMERULAR FILTRATION RATE > 60.0 (>56); GLUCOSE, FASTING 65 MG/DL (70-100); PHOSPHORUS LEVEL 2.8 MG/DL (2.5-4.9); POTASSIUM SERUM 3.7 MEQ/L (3.5-5.1); SODIUM LEVEL 140 MEQ/L (136-145)
[2021-10-21 10:20] LABS: TOTAL PROTEIN,RANDOM URINE 142.2 MG/DL (0.0-12.0)
[2021-10-21 10:27] LABS: TOTAL 25(OH) VITAMIN D 29.7 NG/ML (30.0-100.0)
== END ==
LOC: M LAB 08:52
PROVIDERS: ATTEND Nurse Practitioner Family
DX: N18.1 Chronic kidney disease, stage 1 (principal); D63.1 Anemia in chronic kidney disease; E55.9 Vitamin D deficiency, unspecified; R80.9 Proteinuria, unspecified; E11.22 Type 2 diabetes mellitus with diabetic chronic kidney disease

== ENCOUNTER → 2021-11-30 | Outpatient (REF) | payer MEDICAID ==
[~2021-11-30] MED LIST changes: +LEVO1TAB40 PO; -LEVO750T13 PO
[2021-11-30 18:54] LABS: APPEARANCE, URINE MANUAL CLEAR (CLEAR); COLOR, URINE MANUAL YELLOW (YELLOW); GLUCOSE, URINE (UA) MANUAL 1+(100 MG/DL) mg/dL (NEGATIVE); KETONE, URINE MANUAL NEGATIVE (NEGATIVE); PROTEIN, URINE MANUAL 2+ mg/dL (NEGATIVE)
[2021-11-30 18:55] LABS: BILIRUBIN, URINE MANUAL NEGATIVE (NEGATIVE); BLOOD URINE MANUAL NEGATIVE (NEGATIVE); LEUKOCYTE ESTERASE, URINE MAN NEGATIVE (NEGATIVE); NITRITE, URINE MANUAL NEGATIVE (NEGATIVE); UROBILINOGEN, URINE MANUAL NORMAL (NORMAL)
[2021-11-30 19:05] LABS: BACTERIA, URINE NONE SEEN; HYALINE CAST, URINE NONE SEEN /lpf (0-1); RBC, URINE NONE SEEN /hpf (0-3); SQUAMOUS EPITHELIAL CELL URINE SMALL AMOUNT /hpf (SMALL AMT); WBC, URINE 0-1 /hpf (0-3)
== END ==
LOC: M LAB REF 16:39
PROVIDERS: ATTEND Nurse Practitioner Family
DX: N39.0 Urinary tract infection, site not specified (principal)

== ENCOUNTER → 2021-12-19 | Outpatient (CLI) | payer MEDICAID | LOC: M RAD 08:02 | PROVIDERS: ATTEND Nurse Practitioner Family | DX: N18.1 Chronic kidney disease, stage 1 (principal); R35.0 Frequency of micturition; N28.1 Cyst of kidney, acquired ==

== ENCOUNTER → 2022-02-07 | Outpatient (REF) | payer MEDICAID ==
[~2022-02-07] MED LIST changes: -DOXY-350 PO; +DOXY-444 PO
== END ==
LOC: M LAB REF 16:10
PROVIDERS: ATTEND Physician Assistant Medical
DX: R50.9 Fever, unspecified (principal)

== ENCOUNTER → 2022-03-02 | Outpatient (CLI) | payer MEDICAID | LOC: M LAB 08:25 | PROVIDERS: ATTEND Physician Assistant | DX: Z12.5 Encounter for screening for malignant neoplasm of prostate (principal) ==

== ENCOUNTER → 2022-03-02 | Outpatient (CLI) | payer MEDICAID ==
[2022-03-02 09:22] LABS: HEMATOCRIT 47.1 % (42.0-52.0); HEMOGLOBIN 14.3 g/dl (13.5-17.5); MEAN CORPUSCULAR HEMOGLOBIN 28.9 pg (27.0-33.0); MEAN CORPUSCULAR HGB CONC 30.4 g/dl (32.0-36.5); MEAN CORPUSCULAR VOLUME 95.3 fl (80.0-96.0); PLATELET COUNT, AUTOMATED 194 10^3/uL (150-450); RED BLOOD COUNT 4.94 10^6/uL (4.30-6.10); WHITE BLOOD COUNT 9.9 10^3/uL (4.0-10.0)
[2022-03-02 09:38] LABS: ALBUMIN 3.4 G/DL (3.2-5.2); ALKALINE PHOSPHATASE 77 U/L (46-116); ALT/SGPT 18 U/L (7.0-40); AST/SGOT 13 U/L (<34); BILIRUBIN,TOTAL 0.4 MG/DL (0.3-1.2); BLOOD UREA NITROGEN 13 MG/DL (9-23); CALCIUM LEVEL 8.4 MG/DL (8.5-10.1); CARBON DIOXIDE LEVEL 34 MMOL/L (20-31); CHLORIDE LEVEL 100 MMOL/L (98-107); CHOLESTEROL LEVEL 113 MG/DL (<200); CREATININE FOR GFR 0.59 MG/DL (0.70-1.30); GLOMERULAR FILTRATION RATE > 60.0 (>56); GLUCOSE, FASTING 139 MG/DL (60-100); HDL CHOLESTEROL 33.2 MG/DL (>40); NON-HDL-C 80 MG/DL; POTASSIUM SERUM 4.8 MMOL/L (3.5-5.1); SODIUM LEVEL 138 MMOL/L (136-145); TOTAL PROTEIN 7.4 G/DL (5.7-8.2); TRIGLYCERIDES LEVEL 169 MG/DL (<150)
== END ==
LOC: M LAB 08:27
PROVIDERS: ATTEND Physician Assistant
DX: E78.5 Hyperlipidemia, unspecified (principal); I11.9 Hypertensive heart disease without heart failure

== ENCOUNTER → 2022-07-17 | Outpatient (CLI) | payer MEDICAID | LOC: M RAD 16:54 | PROVIDERS: ATTEND Student in an Organized Health Care Education/Training Program | DX: Z12.2 Encounter for screening for malignant neoplasm of respiratory organs (principal); F17.210 Nicotine dependence, cigarettes, uncomplicated; I31.39 Other pericardial effusion (noninflammatory); I51.7 Cardiomegaly; I70.0 Atherosclerosis of aorta; I25.10 Atherosclerotic heart disease of native coronary artery without angina pectoris; K80.20 Calculus of gallbladder without cholecystitis without obstruction; M47.814 Spondylosis without myelopathy or radiculopathy, thoracic region; J98.11 Atelectasis ==

== ENCOUNTER → 2022-07-25 | Outpatient (CLI) | payer MEDICAID ==
[2022-07-25 08:46] LABS: BASO % 0.3 % (0.0-1.0); EOS # 0.3 10^3/uL (0.0-0.5); EOS % 2.9 % (0.0-3.0); HEMATOCRIT 47.6 % (42.0-52.0); HEMOGLOBIN 14.2 g/dl (13.5-17.5); LYMPH # 2.4 10^3/uL (1.5-5.0); MEAN CORPUSCULAR HEMOGLOBIN 28.9 pg (27.0-33.0); MEAN CORPUSCULAR HGB CONC 29.8 g/dl (32.0-36.5); MEAN CORPUSCULAR VOLUME 96.9 fl (80.0-96.0); NEUTROPHILS # 6.8 10^3/uL (1.5-8.5); NEUTROPHILS % 64.5 % (36.0-66.0); PLATELET COUNT, AUTOMATED 251 10^3/uL (150-450); RED BLOOD COUNT 4.91 10^6/uL (4.30-6.10); WHITE BLOOD COUNT 10.6 10^3/uL (4.0-10.0)
[2022-07-25 09:14] LABS: ALBUMIN 3.5 G/DL (3.2-5.2); ALKALINE PHOSPHATASE 80 U/L (46-116); ALT/SGPT 25 U/L (7.0-40); AST/SGOT 17 U/L (<34); BILIRUBIN,TOTAL 0.4 MG/DL (0.3-1.2); BLOOD UREA NITROGEN 11 MG/DL (9-23); CALCIUM LEVEL 8.4 MG/DL (8.5-10.1); CARBON DIOXIDE LEVEL 39 MMOL/L (20-31); CHLORIDE LEVEL 99 MMOL/L (98-107); CREATININE FOR GFR 0.65 MG/DL (0.70-1.30); GLOMERULAR FILTRATION RATE > 60.0 (>56); GLUCOSE, FASTING 108 MG/DL (60-100); POTASSIUM SERUM 4.6 MMOL/L (3.5-5.1); SODIUM LEVEL 142 MMOL/L (136-145)
[2022-07-25 09:54] LABS: HEMOGLOBIN A1c 7.8 % (4.0-6.0)
== END ==
LOC: M LAB 07:45
PROVIDERS: ATTEND Student in an Organized Health Care Education/Training Program
DX: E11.21 Type 2 diabetes mellitus with diabetic nephropathy (principal)

== ENCOUNTER → 2022-07-28 | Outpatient (CLI) | payer MEDICAID ==
[2022-07-28 15:30] LABS: RHEUMATOID FACTOR QUANT < 3.5 IU/ML (<14)
[2022-07-28 15:32] LABS: THYROXINE (T4) 8.9 UG/DL (4.5-10.9)
[2022-07-28 15:33] LABS: THYROID STIMULATING HORMONE 2.287 uIU/ML (0.55-4.78)
[2022-07-31 13:07] LABS: ANTINUCLEAR ANTIBODIES DIRECT Negative (Negative)
== END ==
LOC: M LAB 14:38
PROVIDERS: ATTEND Internal Medicine Cardiovascular Disease
DX: I31.39 Other pericardial effusion (noninflammatory) (principal); R06.00 Dyspnea, unspecified

== ENCOUNTER → 2022-08-11 | Outpatient (CLI) | payer MEDICAID | LOC: M CARPUL 11:10 | PROVIDERS: ATTEND Internal Medicine Cardiovascular Disease | DX: I31.39 Other pericardial effusion (noninflammatory) (principal) ==

== ENCOUNTER 2022-10-03 18:31 | Emergency (ER) | payer MEDICAID ==
[~2022-10-03] VITALS: Ht 157.5 cm; Wt 133.0 kg
[2022-10-03 19:01] LABS: BASO # 0.1 10^3/uL (0.0-0.2); BASO % 0.2 % (0.0-1.0); EOS # 0.2 10^3/uL (0.0-0.5); EOS % 0.9 % (0.0-3.0); HEMATOCRIT 51.1 % (42.0-52.0); HEMOGLOBIN 15.9 g/dl (13.5-17.5); LYMPH % 16.7 % (24.0-44.0); MEAN CORPUSCULAR HGB CONC 31.1 g/dl (32.0-36.5); MEAN CORPUSCULAR VOLUME 90.1 fl (80.0-96.0); MONO % 6.6 % (2.0-8.0); NEUTROPHILS # 18.2 10^3/uL (1.5-8.5); NEUTROPHILS % 75.1 % (36.0-66.0); PLATELET COUNT, AUTOMATED 376 10^3/uL (150-450); RED BLOOD COUNT 5.67 10^6/uL (4.30-6.10); WHITE BLOOD COUNT 24.2 10^3/uL (4.0-10.0)
[2022-10-03 19:24] LABS: CK-MB VALUE MASS 2.3 NG/ML (<3.6); MONO # 1.6 10^3/uL (0.0-0.8)
[2022-10-03] MEDS ORDERED: IPRATROPIUM 0.5MG/ALBUTEROL 2.5MG INH SOL UD 3ML (DUONEB) NEB ONE (19:25)
[2022-10-03] MEDS ORDERED: MORPHINE 4 MG/ML 1ML VIAL IV PRN (19:25)
[2022-10-03] MEDS ORDERED: ONDANSETRON 4MG 2ML VIAL IV ONE (19:25)
[2022-10-03] MEDS ORDERED: ASPIRIN 81MG CHEW TABLET PO ONE (19:25)
[2022-10-03 19:26] LABS: BLOOD UREA NITROGEN 16 MG/DL (9-23); CALCIUM LEVEL 8.5 MG/DL (8.5-10.1); CARBON DIOXIDE LEVEL 29 MMOL/L (20-31); CHLORIDE LEVEL 100 MMOL/L (98-107); CREATININE FOR GFR 0.54 MG/DL (0.70-1.30); GLOMERULAR FILTRATION RATE > 60.0 (>56); GLUCOSE, FASTING 101 MG/DL (60-100); POTASSIUM SERUM 4.8 MMOL/L (3.5-5.1); SODIUM LEVEL 137 MMOL/L (136-145)
[2022-10-03 19:28] LABS: CPK CREATINE PHOSPHOKINASE 129 U/L (46-171); MB/CK RELATIVE INDEX 1.78 (< OR =4)
[2022-10-03] MEDS ORDERED: ISOVUE-370 76% 100ML VIAL As Ordered ONE (19:34)
[2022-10-03 20:04] LABS: RSV AMPLIFICATION NEGATIVE (NEGATIVE)
[2022-10-03 20:21] LABS: ABG O2 SATURATION 92.3 % (95.0-99.0); ABG PARTIAL PRESSURE CO2 53.8 mmHg (35.0-45.0); ABG PARTIAL PRESSURE O2 63.8 mmHg (75.0-100.0); ABG STANDARD HCO3 26.1 MMOL/L. (22.0-26.0); ABG TOTAL CO2 30.7 MMOL/L (22.0-29.0)
[2022-10-03 21:54] LABS: CK-MB VALUE MASS 1.5 NG/ML (<3.6)
[2022-10-03 21:56] LABS: MB/CK RELATIVE INDEX 1.41 (< OR =4)
[2022-10-04] MEDS ORDERED: JARD1TAB PO (01:52)
[2022-10-04] MEDS ORDERED: VITMTA PO (01:52)
[2022-10-04] MEDS ORDERED: FLUT1BLS8 INH (01:52)
[2022-10-04] MEDS ORDERED: ALBU8.5H INH (01:52)
[2022-10-04] MEDS ORDERED: METO50TA7 PO (01:52)
[2022-10-04] MEDS ORDERED: COLC1TAB14 PO (01:52)
[2022-10-04] MEDS ORDERED: BYDU2INJ7 SC (01:52)
[2022-10-04] MEDS ORDERED: HOME MED LIST COMPLETE! XX SCH (01:55)
[2022-10-04] MEDS ORDERED: ALBUTEROL SULFATE 2.5MG/0.5ML INH NEB SOLN NEB PRN (02:15)
[2022-10-04] MEDS ORDERED: NS 1,000 ML IV SCH (02:15)
[2022-10-04] MEDS ORDERED: GLUCOSE 4GM CHEW TABLET PO PRN (02:15)
[2022-10-04] MEDS ORDERED: SODIUM CHLORIDE 0.9% 1000ML IV SCH (02:15)
[2022-10-04] MEDS ORDERED: HYDROMORPHONE HCL 0.5 MG/ 0.5 ML SYRINGE IV PRN (02:15)
[2022-10-04] MEDS ORDERED: DEXTROSE 50% 50ML SYRINGE IV PRN (02:15)
[2022-10-04] MEDS ORDERED: GLUCAGON INJ 1MG VIAL SC PRN (02:15)
[2022-10-04] MEDS: PIPERACILLIN/TAZOBACTAM SOD 4.5 GM in D5W MINI-BAG PLUS 50 ML IV SCH ×2 (02:30→09:10)
[2022-10-04] MEDS: IPRATROPIUM 0.5MG/ALBUTEROL 2.5MG INH SOL UD 3ML (DUONEB) NEB SCH ×2 (02:34→07:58)
[2022-10-04] MEDS ORDERED: VANCOMYCIN HCL 2,000 MG, VIAL MATE ADAPTER 1 EACH in NS 250 ML IV SCH (02:45)
[2022-10-04] MEDS ORDERED: VANCOMYCIN HCL 1,000 MG, VIAL MATE ADAPTER 1 EACH in D5W 250 ML IV ONE ×2 (03:00→04:00)
[2022-10-04] MEDS: ENOXAPARIN 150MG/ML SYRINGE SC ONE ×2 (03:02→04:12)
[2022-10-04] MEDS ORDERED: INSULIN LISPRO (NovoLOG) PER UNIT SC SCH (06:00)
[2022-10-04] MEDS ORDERED: COLCHICINE 0.6 MG TABLET PO SCH (09:00)
[2022-10-04] MEDS ORDERED: METOPROLOL TART 50 MG TAB PO SCH (09:00)
[2022-10-04 09:11] VITALS: BP 132/67
[2022-10-04] MEDS ORDERED: VANCOMYCIN HCL 750 MG, VIAL MATE ADAPTER 1 EACH in D5W 250 ML IV SCH (11:00)
[2022-10-04] MEDS ORDERED: VANCOMYCIN HCL 500 MG in D5W MINI-BAG PLUS 100 ML IV SCH (12:00)
[2022-10-04 12:02] LABS: BLOOD UREA NITROGEN 16 MG/DL (9-23); CALCIUM LEVEL 9.2 MG/DL (8.5-10.1); CARBON DIOXIDE LEVEL 28 MMOL/L (20-31); CHLORIDE LEVEL 97 MMOL/L (98-107); CREATININE FOR GFR 0.68 MG/DL (0.70-1.30); GLOMERULAR FILTRATION RATE > 60.0 (>56); GLUCOSE, FASTING 188 MG/DL (60-100); POTASSIUM SERUM 5.1 MMOL/L (3.5-5.1); SODIUM LEVEL 134 MMOL/L (136-145)
[2022-10-04 13:01] VITALS: BP 112/63; TEMP 98.3; O2SAT 94
== END 2022-10-04 13:09 | disposition short-term general hospital (02) ==
LOC: M ED 18:31
DX: R07.9 Chest pain, unspecified (principal); R06.02 Shortness of breath; E66.01 Morbid (severe) obesity due to excess calories; I50.9 Heart failure, unspecified; E11.9 Type 2 diabetes mellitus without complications; I10 Essential (primary) hypertension; E78.5 Hyperlipidemia, unspecified; J44.9 Chronic obstructive pulmonary disease, unspecified; Z86.718 Personal history of other venous thrombosis and embolism; F17.200 Nicotine dependence, unspecified, uncomplicated; Z79.01 Long term (current) use of anticoagulants; I31.9 Disease of pericardium, unspecified; A41.9 Sepsis, unspecified organism; I48.91 Unspecified atrial fibrillation; G47.33 Obstructive sleep apnea (adult) (pediatric); I26.90 Septic pulmonary embolism without acute cor pulmonale; J90 Pleural effusion, not elsewhere classified; R92.8 Other abnormal and inconclusive findings on diagnostic imaging of breast; J98.11 Atelectasis; Z79.4 Long term (current) use of insulin; Z79.899 Other long term (current) drug therapy; Z88.1 Allergy status to other antibiotic agents
CPT/HCPCS: 36415; 36600; 71045; 71275; 80047; 80048; 82550; 82553; 82803; 83880; 85025; 87040; 87631; 87641; 93005; 93041; 93306; 94640; 94760; 96365; 96368; 96375; 96376; 99285; J1170; J2405; J2543; Q9967

== ENCOUNTER → 2022-10-27 | Outpatient (CLI) | payer MEDICAID ==
[~2022-10-27] MED LIST changes: +ALBU8.5H INH; +BYDU2INJ7 SC; +COLC1TAB14 PO; +FLUT1BLS8 INH; +JARD1TAB PO; +METO50TA7 PO
[2022-10-27 15:20] LABS: ALBUMIN 2.8 G/DL (3.2-5.2); BLOOD UREA NITROGEN 17 MG/DL (9-23); CALCIUM LEVEL 8.5 MG/DL (8.5-10.1); CARBON DIOXIDE LEVEL 34 MMOL/L (20-31); CHLORIDE LEVEL 98 MMOL/L (98-107); CREATININE FOR GFR 0.71 MG/DL (0.70-1.30); GLOMERULAR FILTRATION RATE > 60.0 (>56); GLUCOSE, FASTING 120 MG/DL (60-100); PHOSPHORUS LEVEL 3.9 MG/DL (2.5-4.9); POTASSIUM SERUM 4.8 MMOL/L (3.5-5.1); SODIUM LEVEL 141 MMOL/L (136-145)
== END ==
LOC: M LAB 13:42
PROVIDERS: ATTEND Internal Medicine Cardiovascular Disease
DX: R06.00 Dyspnea, unspecified (principal)

== ENCOUNTER → 2022-11-10 | Outpatient (CLI) | payer MEDICAID ==
[2022-11-10 09:53] LABS: BASO % 0.2 % (0.0-1.0); EOS # 0.2 10^3/uL (0.0-0.5); EOS % 1.6 % (0.0-3.0); LYMPH # 2.5 10^3/uL (1.5-5.0); MEAN CORPUSCULAR HEMOGLOBIN 26.9 pg (27.0-33.0); MEAN CORPUSCULAR HGB CONC 30.2 g/dl (32.0-36.5); MEAN CORPUSCULAR VOLUME 88.8 fl (80.0-96.0); MONO # 0.8 10^3/uL (0.0-0.8); MONO % 6.3 % (2.0-8.0); NEUTROPHILS # 9.4 10^3/uL (1.5-8.5); NEUTROPHILS % 72.6 % (36.0-66.0); PLATELET COUNT, AUTOMATED 489 10^3/uL (150-450); RED BLOOD COUNT 4.84 10^6/uL (4.30-6.10); WHITE BLOOD COUNT 12.9 10^3/uL (4.0-10.0)
[2022-11-10 10:15] LABS: ALBUMIN 2.6 G/DL (3.2-5.2); ALKALINE PHOSPHATASE 125 U/L (46-116); ALT/SGPT 10 U/L (7.0-40); AST/SGOT < 8 U/L (<34); BILIRUBIN,TOTAL 0.3 MG/DL (0.3-1.2); BLOOD UREA NITROGEN 15 MG/DL (9-23); CALCIUM LEVEL 8.7 MG/DL (8.5-10.1); CARBON DIOXIDE LEVEL 35 MMOL/L (20-31); CHLORIDE LEVEL 100 MMOL/L (98-107); CHOLESTEROL LEVEL 106 MG/DL (<200); CHOLESTEROL RISK RATIO 3.85 (<5); CREATININE FOR GFR 0.62 MG/DL (0.70-1.30); GLOMERULAR FILTRATION RATE > 60.0 (>56); GLUCOSE, FASTING 127 MG/DL (60-100); HDL CHOLESTEROL 27.5 MG/DL (>40); LDL CHOLESTEROL 48.9 MG/DL (<100); NON-HDL-C 78.5 MG/DL; POTASSIUM SERUM 4.3 MMOL/L (3.5-5.1); SODIUM LEVEL 141 MMOL/L (136-145); TOTAL PROTEIN 7.9 G/DL (5.7-8.2); TRIGLYCERIDES LEVEL 148 MG/DL (<150)
[2022-11-10 11:32] LABS: HEMOGLOBIN A1c 7.3 % (4.0-6.0)
== END ==
LOC: M LAB 09:29
PROVIDERS: ATTEND Student in an Organized Health Care Education/Training Program
DX: E78.5 Hyperlipidemia, unspecified (principal); E11.8 Type 2 diabetes mellitus with unspecified complications

== ENCOUNTER → 2022-12-01 | Outpatient (CLI) | payer MEDICAID | LOC: M RAD 12:35 | PROVIDERS: ATTEND Student in an Organized Health Care Education/Training Program | DX: L98.9 Disorder of the skin and subcutaneous tissue, unspecified (principal); R22.2 Localized swelling, mass and lump, trunk ==

== ENCOUNTER → 2022-12-01 | Outpatient (CLI) | payer MEDICAID ==
[2022-12-01 13:39] LABS: BASO % 0.3 % (0.0-1.0); EOS # 0.3 10^3/uL (0.0-0.5); HEMATOCRIT 44.8 % (42.0-52.0); HEMOGLOBIN 13.8 g/dl (13.5-17.5); LYMPH # 3.8 10^3/uL (1.5-5.0); LYMPH % 27.1 % (24.0-44.0); MEAN CORPUSCULAR HEMOGLOBIN 26.8 pg (27.0-33.0); MEAN CORPUSCULAR HGB CONC 30.8 g/dl (32.0-36.5); MEAN CORPUSCULAR VOLUME 87.2 fl (80.0-96.0); MONO % 7.4 % (2.0-8.0); NEUTROPHILS # 8.8 10^3/uL (1.5-8.5); NEUTROPHILS % 62.8 % (36.0-66.0); PLATELET COUNT, AUTOMATED 371 10^3/uL (150-450); RED BLOOD COUNT 5.14 10^6/uL (4.30-6.10)
[2022-12-01 13:40] LABS: APPEARANCE, URINE CLEAR (CLEAR); BACTERIA, URINE AUTO NEGATIVE (NEGATIVE); BILIRUBIN, URINE AUTO NEGATIVE (NEGATIVE); BLOOD, URINE BLOOD NEGATIVE (NEGATIVE); COLOR, URINE YELLOW (YELLOW); GLUCOSE, URINE (UA) AUTO 3+ mg/dL (NEGATIVE); KETONE, URINE AUTO NEGATIVE (NEGATIVE); LEUKOCYTE ESTERASE, URINE AUTO NEGATIVE (NEGATIVE); NITRITE, URINE AUTO NEGATIVE (NEGATIVE); PROTEIN, URINE AUTO NEGATIVE (NEGATIVE); RBC, URINE AUTO 1 /HPF (0-3); SQUAMOUS EPITHELIAL CELL UR AU 0 /HPF (0-6); UROBILINOGEN, URINE AUTO 0.2 mg/dL (0.0-2.0); WBC, URINE AUTO 1 /HPF (0-3)
[2022-12-01 13:59] LABS: TOTAL PROTEIN,RANDOM URINE 8.1 MG/DL (0.0-14.0)
[2022-12-01 14:04] LABS: ALBUMIN 3.4 G/DL (3.2-5.2); BLOOD UREA NITROGEN 19 MG/DL (9-23); CALCIUM LEVEL 8.9 MG/DL (8.5-10.1); CARBON DIOXIDE LEVEL 30 MMOL/L (20-31); CHLORIDE LEVEL 98 MMOL/L (98-107); CREATININE,RANDOM URINE 27.8 MG/DL; GLOMERULAR FILTRATION RATE > 60.0 (>56); GLUCOSE, FASTING 137 MG/DL (60-100); PHOSPHORUS LEVEL 4.9 MG/DL (2.5-4.9); POTASSIUM SERUM 4.7 MMOL/L (3.5-5.1); SODIUM LEVEL 137 MMOL/L (136-145)
[2022-12-01 14:06] LABS: TOTAL 25(OH) VITAMIN D 23.5 NG/ML (20.0-100.0)
== END ==
LOC: M LAB 12:39
PROVIDERS: ATTEND Nurse Practitioner Family
DX: N18.1 Chronic kidney disease, stage 1 (principal); D63.1 Anemia in chronic kidney disease; E11.22 Type 2 diabetes mellitus with diabetic chronic kidney disease; E55.9 Vitamin D deficiency, unspecified; R80.9 Proteinuria, unspecified

== ENCOUNTER 2023-04-09 12:41 | Emergency (ER) | payer MEDICAID ==
[~2023-04-09] VITALS: Ht 157.5 cm; Wt 134.1 kg
[~2023-04-09 12:41] MED LIST changes: +CEFD1CAP9 PO; -CEFD300C41 PO
[2023-04-09] MEDS ORDERED: TORS20TA2 PO (15:03)
[2023-04-09] MEDS ORDERED: INSU100I38 SC (15:03)
[2023-04-09] MEDS ORDERED: LIDOCAINE 2% MDV 20ML VIAL SC ONE (15:25)
[2023-04-09] MEDS ORDERED: DOXY-444 PO (15:32)
[2023-04-09] MEDS ORDERED: DOXYCYCLINE HYCLATE 100MG TABLET PO ONE (15:50)
[2023-04-09 15:57] VITALS: BP 119/65; TEMP 96.3; O2SAT 100
== END 2023-04-09 16:10 | disposition home or self-care (01) ==
LOC: M ED 12:41
DX: L03.319 Cellulitis of trunk, unspecified (principal); L02.219 Cutaneous abscess of trunk, unspecified; E66.01 Morbid (severe) obesity due to excess calories; E11.9 Type 2 diabetes mellitus without complications; K21.9 Gastro-esophageal reflux disease without esophagitis; J44.9 Chronic obstructive pulmonary disease, unspecified; J45.909 Unspecified asthma, uncomplicated; E78.5 Hyperlipidemia, unspecified; I10 Essential (primary) hypertension; Z88.1 Allergy status to other antibiotic agents; Z79.01 Long term (current) use of anticoagulants; Z79.84 Long term (current) use of oral hypoglycemic drugs; Z79.4 Long term (current) use of insulin; Z79.52 Long term (current) use of systemic steroids; Z79.899 Other long term (current) drug therapy

== ENCOUNTER 2023-04-30 13:31 | Emergency (ER) | payer MEDICAID ==
[~2023-04-30] VITALS: Ht 157.5 cm; Wt 131.3 kg
[~2023-04-30 13:31] MED LIST changes: +INSU100I38 SC; +TORS20TA2 PO
[2023-04-30] MEDS: MORPHINE 4 MG/ML 1ML VIAL IV ONE ×2 (17:54→22:17)
[2023-04-30 18:06] LABS: BASO % 0.2 % (0.0-1.0); EOS # 0.1 10^3/uL (0.0-0.5); EOS % 0.6 % (0.0-3.0); HEMATOCRIT 38.7 % (42.0-52.0); HEMOGLOBIN 12.5 g/dl (13.5-17.5); LYMPH # 3.5 10^3/uL (1.5-5.0); LYMPH % 17.1 % (24.0-44.0); MEAN CORPUSCULAR HEMOGLOBIN 28.3 pg (27.0-33.0); MEAN CORPUSCULAR HGB CONC 32.3 g/dl (32.0-36.5); MEAN CORPUSCULAR VOLUME 87.8 fl (80.0-96.0); MONO # 1.7 10^3/uL (0.0-0.8); MONO % 8.1 % (2.0-8.0); NEUTROPHILS # 15.1 10^3/uL (1.5-8.5); NEUTROPHILS % 73.2 % (36.0-66.0); PLATELET COUNT, AUTOMATED 425 10^3/uL (150-450); RED BLOOD COUNT 4.41 10^6/uL (4.30-6.10); WHITE BLOOD COUNT 20.7 10^3/uL (4.0-10.0)
[2023-04-30 18:37] LABS: LIPASE 29 U/L (12-53)
[2023-04-30 18:39] LABS: ALBUMIN 2.3 G/DL (3.2-5.2); ALKALINE PHOSPHATASE 107 U/L (46-116); ALT/SGPT 13 U/L (7.0-40); AST/SGOT 19 U/L (<34); BILIRUBIN,DIRECT 0.2 MG/DL (<0.4); BILIRUBIN,TOTAL 0.6 MG/DL (0.3-1.2); BLOOD UREA NITROGEN 15 MG/DL (9-23); CALCIUM LEVEL 7.2 MG/DL (8.5-10.1); CARBON DIOXIDE LEVEL 31 MMOL/L (20-31); CHLORIDE LEVEL 97 MMOL/L (98-107); CREATININE FOR GFR 0.78 MG/DL (0.70-1.30); GLOMERULAR FILTRATION RATE > 60.0 (>56); GLUCOSE, FASTING 65 MG/DL (60-100); POTASSIUM SERUM 3.4 MMOL/L (3.5-5.1); SODIUM LEVEL 137 MMOL/L (136-145); TOTAL PROTEIN 7.1 G/DL (5.7-8.2)
[2023-04-30] MEDS ORDERED: ISOVUE-370 76% 100ML VIAL As Ordered ONE (19:00)
[2023-04-30] MEDS: DEXTROSE 50% 50ML SYRINGE IV STA (20:17)
[2023-04-30] MEDS: PIPERACILLIN/TAZOBACTAM SOD 3.375 GM in D5W MINI-BAG PLUS 50 ML IV ONE (21:01)
[2023-04-30 21:43] LABS: RSV AMPLIFICATION NEGATIVE (NEGATIVE)
[2023-04-30] MEDS: KCL 20MEQ IN D5/0.45NS 1000ML 1,000 ML IV SCH (22:21)
[2023-05-01] MEDS: ACETAMINOPHEN TAB 650MG DOSE (2X325MG) PO ONE (04:07)
[2023-05-01 07:53] VITALS: BP 120/67; TEMP 98.2; O2SAT 95
== END 2023-05-01 07:56 | disposition short-term general hospital (02) ==
LOC: M ED 13:31
DX: K57.20 Diverticulitis of large intestine with perforation and abscess without bleeding (principal); I10 Essential (primary) hypertension; E78.5 Hyperlipidemia, unspecified; J44.9 Chronic obstructive pulmonary disease, unspecified; G47.33 Obstructive sleep apnea (adult) (pediatric); K21.9 Gastro-esophageal reflux disease without esophagitis; F41.9 Anxiety disorder, unspecified; E11.9 Type 2 diabetes mellitus without complications; M54.50 Low back pain, unspecified; E66.9 Obesity, unspecified; Z88.1 Allergy status to other antibiotic agents; Z86.79 Personal history of other diseases of the circulatory system; Z79.52 Long term (current) use of systemic steroids; Z79.4 Long term (current) use of insulin; Z79.02 Long term (current) use of antithrombotics/antiplatelets; Z79.01 Long term (current) use of anticoagulants; Z79.899 Other long term (current) drug therapy
CPT/HCPCS: 74177; 80048; 80076; 83605; 83690; 85025; 87040; 87631; 96365; 96366; 96375; 96376; 99284; J2543; Q9967

== ENCOUNTER 2023-05-09 21:04 | Emergency (ER) | payer MEDICAID ==
[~2023-05-09] VITALS: Ht 157.5 cm; Wt 131.7 kg
[2023-05-09 22:31] LABS: BASO % 0.3 % (0.0-1.0); EOS # 0.3 10^3/uL (0.0-0.5); EOS % 2.5 % (0.0-3.0); HEMATOCRIT 42.6 % (42.0-52.0); HEMOGLOBIN 13.5 g/dl (13.5-17.5); LYMPH % 37.6 % (24.0-44.0); MEAN CORPUSCULAR HEMOGLOBIN 28.4 pg (27.0-33.0); MEAN CORPUSCULAR HGB CONC 31.7 g/dl (32.0-36.5); MEAN CORPUSCULAR VOLUME 89.7 fl (80.0-96.0); MONO # 0.8 10^3/uL (0.0-0.8); MONO % 7.4 % (2.0-8.0); NEUTROPHILS # 5.4 10^3/uL (1.5-8.5); NEUTROPHILS % 51.6 % (36.0-66.0); PLATELET COUNT, AUTOMATED 431 10^3/uL (150-450); RED BLOOD COUNT 4.75 10^6/uL (4.30-6.10); WHITE BLOOD COUNT 10.5 10^3/uL (4.0-10.0)
[2023-05-09 23:03] LABS: BLOOD UREA NITROGEN 17 MG/DL (9-23); CALCIUM LEVEL 7.9 MG/DL (8.5-10.1); CARBON DIOXIDE LEVEL 30 MMOL/L (20-31); CHLORIDE LEVEL 101 MMOL/L (98-107); CREATININE FOR GFR 0.78 MG/DL (0.70-1.30); GLOMERULAR FILTRATION RATE > 60.0 (>56); GLUCOSE, FASTING 101 MG/DL (60-100); POTASSIUM SERUM 4.6 MMOL/L (3.5-5.1); SODIUM LEVEL 138 MMOL/L (136-145)
[2023-05-09] MEDS ORDERED: ISOVUE-370 76% 100ML VIAL As Ordered ONE (23:58)
[2023-05-10 00:19] LABS: PROCALCITONIN <0.04 ng/ml
[2023-05-10 01:00] VITALS: BP 109/62
[2023-05-10 01:04] VITALS: O2SAT 97
[2023-05-10 01:14] VITALS: TEMP 97.7
== END 2023-05-10 01:35 | disposition home or self-care (01) ==
LOC: M ED 21:04
DX: K57.32 Diverticulitis of large intestine without perforation or abscess without bleeding (principal); K80.80 Other cholelithiasis without obstruction; E11.9 Type 2 diabetes mellitus without complications; I10 Essential (primary) hypertension; E78.5 Hyperlipidemia, unspecified; J44.9 Chronic obstructive pulmonary disease, unspecified; Z86.79 Personal history of other diseases of the circulatory system; Z88.1 Allergy status to other antibiotic agents; Z79.01 Long term (current) use of anticoagulants; Z79.52 Long term (current) use of systemic steroids; Z79.02 Long term (current) use of antithrombotics/antiplatelets; Z79.4 Long term (current) use of insulin; Z79.899 Other long term (current) drug therapy
CPT/HCPCS: 36415; 74177; 80048; 83605; 84145; 85025; 99284; Q9967

== ENCOUNTER → 2023-06-06 | Outpatient (REF) | payer MEDICAID | LOC: M SFHCPLAZ 10:19 | PROVIDERS: ATTEND Family Medicine | DX: Z53.9 Procedure and treatment not carried out, unspecified reason (principal) ==

== ENCOUNTER → 2023-08-16 | Outpatient (CLI) | payer MEDICAID ==
[~2023-08-16] MED LIST changes: +DOXY-323 PO; +DOXY-440 PO; -DOXY-443 PO; -DOXY-444 PO
== END ==
LOC: M SLEEP 20:00
PROVIDERS: ATTEND Physician Assistant
DX: G47.33 Obstructive sleep apnea (adult) (pediatric) (principal)

== ENCOUNTER → 2023-08-27 | Outpatient (REF) | payer MEDICAID | LOC: M SFHCPLAZ 17:02 | PROVIDERS: ATTEND Student in an Organized Health Care Education/Training Program | DX: E11.8 Type 2 diabetes mellitus with unspecified complications (principal); E78.2 Mixed hyperlipidemia; Z53.9 Procedure and treatment not carried out, unspecified reason ==

== ENCOUNTER → 2023-09-06 | Outpatient (CLI) | payer MEDICAID ==
[2023-09-06 09:41] LABS: HEMOGLOBIN A1c 8.2 % (4.0-6.0)
[2023-09-06 09:44] LABS: CHOLESTEROL LEVEL 198 MG/DL (<200); CHOLESTEROL RISK RATIO 5.72 (<5); GLUCOSE, FASTING 195 MG/DL (60-100); HDL CHOLESTEROL 34.6 MG/DL (>40); NON-HDL-C 163.4 MG/DL; TRIGLYCERIDES LEVEL 626 MG/DL (<150)
== END ==
LOC: M LAB 08:26
PROVIDERS: ATTEND Student in an Organized Health Care Education/Training Program
DX: E11.8 Type 2 diabetes mellitus with unspecified complications (principal); E78.2 Mixed hyperlipidemia

== ENCOUNTER → 2023-10-11 | Outpatient (CLI) | payer MEDICAID ==
[2023-10-11 15:41] LABS: BASO % 0.3 % (0.0-1.0); EOS # 0.3 10^3/uL (0.0-0.5); EOS % 2.6 % (0.0-3.0); HEMATOCRIT 48.6 % (42.0-52.0); HEMOGLOBIN 15.3 g/dl (13.5-17.5); LYMPH # 3.6 10^3/uL (1.5-5.0); LYMPH % 34.8 % (24.0-44.0); MEAN CORPUSCULAR HEMOGLOBIN 28.4 pg (27.0-33.0); MEAN CORPUSCULAR HGB CONC 31.5 g/dl (32.0-36.5); MEAN CORPUSCULAR VOLUME 90.2 fl (80.0-96.0); MONO % 9.7 % (2.0-8.0); NEUTROPHILS # 5.4 10^3/uL (1.5-8.5); NEUTROPHILS % 52.3 % (36.0-66.0); PLATELET COUNT, AUTOMATED 312 10^3/uL (150-450); RED BLOOD COUNT 5.39 10^6/uL (4.30-6.10); WHITE BLOOD COUNT 10.4 10^3/uL (4.0-10.0)
[2023-10-11 15:51] LABS: INR 1.1; PARTIAL THROMBOPLASTIN TIME 28.6 SECONDS (24.8-34.2); PROTHROMBIN TIME 13.8 SECONDS (12.5-14.5)
[2023-10-11 16:10] LABS: FERRITIN 55.5 NG/ML (10.5-307.3)
[2023-10-11 16:37] LABS: ALBUMIN 3.7 G/DL (3.2-5.2); ALKALINE PHOSPHATASE 99 U/L (46-116); ALT/SGPT 21 U/L (7.0-40); AST/SGOT 8 U/L (<34); BILIRUBIN,TOTAL 0.5 MG/DL (0.3-1.2); BLOOD UREA NITROGEN 15 MG/DL (9-23); CALCIUM LEVEL 8.9 MG/DL (8.5-10.1); CARBON DIOXIDE LEVEL 30 MMOL/L (20-31); CHLORIDE LEVEL 101 MMOL/L (98-107); CREATININE FOR GFR 0.76 MG/DL (0.70-1.30); GLOMERULAR FILTRATION RATE > 60.0 (>56); GLUCOSE, FASTING 111 MG/DL (60-100); POTASSIUM SERUM 4.3 MMOL/L (3.5-5.1); SODIUM LEVEL 140 MMOL/L (136-145); TOTAL PROTEIN 8.1 G/DL (5.7-8.2)
== END ==
LOC: M PLALAB 12:04
PROVIDERS: ATTEND Family Medicine
DX: E11.21 Type 2 diabetes mellitus with diabetic nephropathy (principal); F17.210 Nicotine dependence, cigarettes, uncomplicated; J44.9 Chronic obstructive pulmonary disease, unspecified

== ENCOUNTER 2023-10-17 09:23 | Day surgery (SDC) | payer MEDICAID ==
[~2023-10-17] VITALS: Ht 157.5 cm; Wt 134.2 kg
[2023-10-17] MEDS ORDERED: propofoL 200 MG/20 ML VIAL As Ordered ONE (09:31)
[2023-10-17] MEDS ORDERED: LIDOCAINE 2% 100MG/5ML SDV (FOR ANES.) As Ordered ONE (09:31)
[2023-10-17] MEDS: NS 1,000 ML IV SCH (10:00)
[2023-10-17 11:14] VITALS: TEMP 97.4
[2023-10-17 11:30] VITALS: BP 123/73; O2SAT 99
== END 2023-10-17 12:17 | disposition home or self-care (01) ==
LOC: M OPP 09:23
PROVIDERS: ATTEND Surgery
DX: K57.30 Diverticulosis of large intestine without perforation or abscess without bleeding (principal); K64.8 Other hemorrhoids; K57.32 Diverticulitis of large intestine without perforation or abscess without bleeding; E11.9 Type 2 diabetes mellitus without complications; J44.9 Chronic obstructive pulmonary disease, unspecified; I82.409 Acute embolism and thrombosis of unspecified deep veins of unspecified lower extremity; I50.20 Unspecified systolic (congestive) heart failure; G47.33 Obstructive sleep apnea (adult) (pediatric); F17.200 Nicotine dependence, unspecified, uncomplicated; Z79.01 Long term (current) use of anticoagulants; Z79.02 Long term (current) use of antithrombotics/antiplatelets; Z79.51 Long term (current) use of inhaled steroids; Z79.4 Long term (current) use of insulin; Z79.899 Other long term (current) drug therapy

== ENCOUNTER → 2023-12-18 | Outpatient (CLI) | payer MEDICAID ==
[2023-12-18 10:23] LABS: BASO % 0.3 % (0.0-1.0); EOS # 0.3 10^3/uL (0.0-0.5); EOS % 2.7 % (0.0-3.0); HEMATOCRIT 47.8 % (42.0-52.0); HEMOGLOBIN 15.4 g/dl (13.5-17.5); LYMPH # 3.4 10^3/uL (1.5-5.0); MEAN CORPUSCULAR HGB CONC 32.2 g/dl (32.0-36.5); MONO # 0.9 10^3/uL (0.0-0.8); NEUTROPHILS # 6.7 10^3/uL (1.5-8.5); NEUTROPHILS % 58.6 % (36.0-66.0); PLATELET COUNT, AUTOMATED 282 10^3/uL (150-450); RED BLOOD COUNT 5.31 10^6/uL (4.30-6.10)
[2023-12-18 10:40] LABS: TOTAL PROTEIN,RANDOM URINE 6.5 MG/DL (0.0-14.0)
[2023-12-18 10:45] LABS: CREATININE,RANDOM URINE 19.1 MG/DL
[2023-12-18 10:47] LABS: ALBUMIN 3.6 G/DL (3.2-5.2); BLOOD UREA NITROGEN 12 MG/DL (9-23); CALCIUM LEVEL 8.3 MG/DL (8.5-10.1); CARBON DIOXIDE LEVEL 32 MMOL/L (20-31); CHLORIDE LEVEL 103 MMOL/L (98-107); GLOMERULAR FILTRATION RATE > 60.0 (>56); GLUCOSE, FASTING 94 MG/DL (60-100); PHOSPHORUS LEVEL 4.3 MG/DL (2.5-4.9); SODIUM LEVEL 141 MMOL/L (136-145)
[2023-12-18 11:10] LABS: APPEARANCE, URINE MANUAL CLEAR (CLEAR); BILIRUBIN, URINE MANUAL NEGATIVE (NEGATIVE); BLOOD URINE MANUAL NEGATIVE (NEGATIVE); COLOR, URINE MANUAL YELLOW (YELLOW); GLUCOSE, URINE (UA) MANUAL 3+(500 MG/DL) mg/dL (NEGATIVE); KETONE, URINE MANUAL NEGATIVE (NEGATIVE); LEUKOCYTE ESTERASE, URINE MAN NEGATIVE (NEGATIVE); NITRITE, URINE MANUAL NEGATIVE (NEGATIVE); PROTEIN, URINE MANUAL NEGATIVE (NEGATIVE); UROBILINOGEN, URINE MANUAL NORMAL (NORMAL)
[2023-12-19 07:18] LABS: WHITE BLOOD COUNT 11.4 10^3/uL (4.0-10.0)
== END ==
LOC: M LAB 08:33
PROVIDERS: ATTEND Nurse Practitioner Family
DX: N18.1 Chronic kidney disease, stage 1 (principal); D63.1 Anemia in chronic kidney disease; R80.9 Proteinuria, unspecified; E11.22 Type 2 diabetes mellitus with diabetic chronic kidney disease

== ENCOUNTER → 2024-01-16 | Outpatient (CLI) | payer MEDICAID ==
[~2024-01-16] MED LIST changes: -DOXY-323 PO; +DOXY-441 PO
== END ==
LOC: M RAD 12:49
PROVIDERS: ATTEND Internal Medicine Pulmonary Disease
DX: Z12.2 Encounter for screening for malignant neoplasm of respiratory organs (principal); Z87.891 Personal history of nicotine dependence; J98.11 Atelectasis; I25.10 Atherosclerotic heart disease of native coronary artery without angina pectoris; I70.0 Atherosclerosis of aorta; I51.7 Cardiomegaly; K80.20 Calculus of gallbladder without cholecystitis without obstruction

== ENCOUNTER → 2024-07-17 | Outpatient (REF) | payer MEDICAID ==
[~2024-07-17] MED LIST changes: +ATOR-398 PO; -BYDU2INJ7 SC; +EXEN2AUT SC; -LIPI80TA PO
[2024-07-17 14:07] LABS: BASO % 0.2 % (0.0-1.0); EOS # 0.2 10^3/uL (0.0-0.5); EOS % 1.4 % (0.0-3.0); HEMATOCRIT 48.4 % (42.0-52.0); HEMOGLOBIN 15.3 g/dl (13.5-17.5); LYMPH # 3.8 10^3/uL (1.5-5.0); LYMPH % 25.7 % (24.0-44.0); MEAN CORPUSCULAR HEMOGLOBIN 29.3 pg (27.0-33.0); MEAN CORPUSCULAR HGB CONC 31.6 g/dl (32.0-36.5); MEAN CORPUSCULAR VOLUME 92.7 fl (80.0-96.0); MONO # 1.1 10^3/uL (0.0-0.8); MONO % 7.4 % (2.0-8.0); NEUTROPHILS # 9.5 10^3/uL (1.5-8.5); NEUTROPHILS % 64.8 % (36.0-66.0); PLATELET COUNT, AUTOMATED 277 10^3/uL (150-450); RED BLOOD COUNT 5.22 10^6/uL (4.30-6.10); WHITE BLOOD COUNT 14.7 10^3/uL (4.0-10.0)
[2024-07-17 15:09] LABS: ALBUMIN 3.8 G/DL (3.2-5.2); ALKALINE PHOSPHATASE 83 U/L (40-129); ALT/SGPT 19 U/L (7.0-40); AST/SGOT 10 U/L (<34); BILIRUBIN,TOTAL 0.3 MG/DL (0.3-1.2); BLOOD UREA NITROGEN 19 MG/DL (9-23); CALCIUM LEVEL 8.2 MG/DL (8.5-10.1); CARBON DIOXIDE LEVEL 31 MMOL/L (20-31); CHLORIDE LEVEL 98 MMOL/L (98-107); CHOLESTEROL LEVEL 174 MG/DL (<200); CHOLESTEROL RISK RATIO 5.81 (<5); CREATININE FOR GFR 0.65 MG/DL (0.70-1.30); GLOMERULAR FILTRATION RATE > 90.0 (>56); GLUCOSE, FASTING 160 MG/DL (60-100); HDL CHOLESTEROL 29.9 MG/DL (>40); NON-HDL-C 144.1 MG/DL; POTASSIUM SERUM 4.2 MMOL/L (3.5-5.1); PSA SCREENING 0.99 NG/ML (< 4.00); SODIUM LEVEL 139 MMOL/L (136-145); TOTAL PROTEIN 7.3 G/DL (5.7-8.2); TRIGLYCERIDES LEVEL 838 MG/DL (<150)
[2024-07-17 15:11] LABS: FREE T4 1.13 NG/DL (0.89-1.76); THYROID STIMULATING HORMONE 0.808 uIU/ML (0.55-4.78)
== END ==
LOC: M SFHCPLAZ 09:18
PROVIDERS: ATTEND Student in an Organized Health Care Education/Training Program
DX: E66.01 Morbid (severe) obesity due to excess calories (principal); E55.9 Vitamin D deficiency, unspecified; F17.210 Nicotine dependence, cigarettes, uncomplicated; E11.21 Type 2 diabetes mellitus with diabetic nephropathy

== ENCOUNTER 2024-09-22 14:43 | Observation (INO) | payer MEDICAID ==
[~2024-09-22] VITALS: Ht 157.5 cm; Wt 124.6 kg
[2024-09-22] MEDS ORDERED: ISOVUE-370 76% 100 ML VIAL As Ordered ONE (15:45)
[2024-09-22 16:17] LABS: BASO # 0.0 10^3/uL (0.0-0.2); BASO % 0.2 % (0.0-1.0); EOS # 0.3 10^3/uL (0.0-0.5); EOS % 2.2 % (0.0-3.0); LYMPH # 4.0 10^3/uL (1.5-5.0); LYMPH % 31.1 % (24.0-44.0); MONO # 1.1 10^3/uL (0.0-0.8); MONO % 8.3 % (2.0-8.0); NEUTROPHILS # 7.4 10^3/uL (1.5-8.5); NEUTROPHILS % 57.8 % (36.0-66.0); PLATELET COUNT, AUTOMATED 266 10^3/uL (150-450)
[2024-09-22 16:28] LABS: INR 1.08
[2024-09-22 16:48] LABS: ALT/SGPT 20.0 U/L (7.0-40); AST/SGOT 19.0 U/L (<34)
[2024-09-22] MEDS ORDERED: GLUCOSE 4 GM CHEW PO PRN (17:50)
[2024-09-22] MEDS ORDERED: DEXTROSE 50% 50 ML SYRINGE IV PRN (17:50)
[2024-09-22] MEDS ORDERED: GLUCAGON INJ 1 MG VIAL SC PRN (17:50)
[2024-09-22 18:48] LABS: ESTIMATED AVERAGE GLUCOSE 123.0 MG/DL (60-110)
[2024-09-22] MEDS ORDERED: IPRA0.00 INH (19:08)
[2024-09-22] MEDS ORDERED: FENO145T7 PO (19:08)
[2024-09-22] MEDS ORDERED: FLUT1BLS8 IH (19:08)
[2024-09-22] MEDS ORDERED: SEMA0.257 SQ (19:08)
[2024-09-22] MEDS ORDERED: HOME MED LIST COMPLETE! XX SCH (19:10)
[2024-09-22] MEDS: IPRATROPIUM 0.5 MG/ALBUTEROL 2.5 MG INH SOL UD 3 ML NEB SCH (19:38)
[2024-09-22] MEDS: INSULIN LISPRO (NovoLOG) PER UNIT SC SCH (21:00)
[2024-09-22] MEDS: ATORVASTATIN 20 MG TAB PO SCH (21:40)
[2024-09-22] MEDS: APIXABAN 5 MG TAB PO SCH (21:41)
[2024-09-22] MEDS: METOPROLOL TART 25 MG TABLET PO SCH (21:42)
[2024-09-22] MEDS: LanTUS (INSULIN GLARGINE INJ) 1 UNITS/0.01 ML SC SCH (21:43)
[2024-09-23 04:32] VITALS: BP 122/71; TEMP 97; O2SAT 95
[2024-09-23 06:44] LABS: PLATELET COUNT, AUTOMATED 249 10^3/uL (150-450)
[2024-09-23 07:06] LABS: CALCIUM LEVEL 8.5 MG/DL (8.5-10.1); CARBON DIOXIDE LEVEL 33 MMOL/L (20-31); CHLORIDE LEVEL 102 MMOL/L (98-107); CREATININE FOR GFR 0.72 MG/DL (0.70-1.30); GLOMERULAR FILTRATION RATE > 90.0 (>56); MAGNESIUM LEVEL 1.6 MG/DL (1.8-2.4); POTASSIUM SERUM 4.3 MMOL/L (3.5-5.1); SODIUM LEVEL 144 MMOL/L (136-145)
[2024-09-23] MEDS: INSULIN LISPRO (NovoLOG) PER UNIT SC SCH (07:30)
[2024-09-23 07:33] VITALS: BP 109/57; TEMP 97.7; O2SAT 98
[2024-09-23] MEDS: METOPROLOL TART 25 MG TABLET PO SCH (09:00)
[2024-09-23 10:25] LABS: CHOLESTEROL LEVEL 98 MG/DL (<200); CHOLESTEROL RISK RATIO 3.84 (<5); LDL CHOLESTEROL 39.5 MG/DL (<100); NON-HDL-C 72.5 MG/DL; TRIGLYCERIDES LEVEL 165 MG/DL (<150)
[2024-09-23 11:43] VITALS: BP 126/59; TEMP 97.9; O2SAT 97
[2024-09-23] MEDS: MAG SULF 1GM/100ML (MAG RUN) 1 GM in IV 1 EA IV SCH (11:45)
[2024-09-23 15:45] VITALS: BP 121/59; TEMP 98; O2SAT 97
[2024-09-23] MEDS: TIOTROPIUM BROM 2.5MCG/ACTUATION 4GM INH INH SCH (19:00)
[2024-09-23] MEDS: IPRATROPIUM 0.5 MG/ALBUTEROL 2.5 MG INH SOL UD 3 ML NEB PRN (19:31)
[2024-09-23 19:49] VITALS: BP 134/64; TEMP 97.5; O2SAT 99
[2024-09-23] MEDS ORDERED: SYMBICORT 80/4.5MCG INHALER 6GM INH SCH (20:00)
[2024-09-23] MEDS: LanTUS (INSULIN GLARGINE INJ) 1 UNITS/0.01 ML SC SCH (20:57)
[2024-09-23] MEDS: FENOFIBRATE 145 MG TABLET PO SCH (20:58)
[2024-09-23] MEDS: ADVAIR HFA 230/21 MCG INHALER INH SCH (22:16)
[2024-09-24 00:12] VITALS: BP 124/64; TEMP 97; O2SAT 98
[2024-09-24 03:43] VITALS: BP_SYST 124; BP_SYST 129; BP_DIAS 64; BP_DIAS 74; TEMP 97; O2SAT 98
[2024-09-24 05:34] LABS: PLATELET COUNT, AUTOMATED 232 10^3/uL (150-450)
[2024-09-24 05:58] LABS: CALCIUM LEVEL 7.9 MG/DL (8.5-10.1); CARBON DIOXIDE LEVEL 29 MMOL/L (20-31); CHLORIDE LEVEL 104 MMOL/L (98-107); CREATININE FOR GFR 0.68 MG/DL (0.70-1.30); GLOMERULAR FILTRATION RATE > 90.0 (>56); MAGNESIUM LEVEL 1.7 MG/DL (1.8-2.4); POTASSIUM SERUM 4.1 MMOL/L (3.5-5.1); SODIUM LEVEL 143 MMOL/L (136-145)
[2024-09-24 07:42] VITALS: BP 130/69; TEMP 96.9; O2SAT 97
[2024-09-24 08:35] VITALS: BP 130/69
[2024-09-24] MEDS: MAG SULF 1GM/100ML (MAG RUN) 1 GM in IV 1 EA IV SCH (08:35)
[2024-09-24] MEDS ORDERED: METO50TA7 PO (10:09)
[2024-09-24] MEDS ORDERED: MAGN400T2 PO (10:09)
== END 2024-09-24 11:22 | disposition home or self-care (01) ==
LOC: M ED 14:43 → M ED INP 14:44 → M PCU 09-23 04:32
PROVIDERS: ADMIT Family Medicine; ATTEND Family Medicine
DX: R53.1 Weakness (principal); E11.649 Type 2 diabetes mellitus with hypoglycemia without coma; Z86.73 Personal history of transient ischemic attack (TIA), and cerebral infarction without residual deficits; I69.351 Hemiplegia and hemiparesis following cerebral infarction affecting right dominant side; Z79.4 Long term (current) use of insulin; J96.11 Chronic respiratory failure with hypoxia; J44.1 Chronic obstructive pulmonary disease with (acute) exacerbation; I50.22 Chronic systolic (congestive) heart failure; E83.42 Hypomagnesemia; I11.0 Hypertensive heart disease with heart failure; Z79.01 Long term (current) use of anticoagulants; Z86.718 Personal history of other venous thrombosis and embolism; Z79.899 Other long term (current) drug therapy
CPT/HCPCS: 36415; 70450; 70496; 70498; 70551; 71045; 80047; 80048; 80061; 80076; 83036; 83735; 85025; 85027; 85610; 85730; 93005; 93041; 94640; 94760; 96360; 96361; 97116; 97161; 99285; J1815; J3475; Q9967

== ENCOUNTER → 2024-10-12 | Outpatient (REF) | payer MEDICAID ==
[~2024-10-12] MED LIST changes: +FENO145T7 PO; +FLUT1BLS8 IH; +IPRA0.00 INH; +MAGN400T2 PO; +SEMA0.257 SQ
== END ==
LOC: M SFHCPLAZ 14:14
DX: E11.21 Type 2 diabetes mellitus with diabetic nephropathy (principal); I50.20 Unspecified systolic (congestive) heart failure; E78.1 Pure hyperglyceridemia; Z53.9 Procedure and treatment not carried out, unspecified reason

== ENCOUNTER → 2024-11-17 | Outpatient (REF) | payer MEDICAID | LOC: M SFHCPLAZ 17:45 | DX: Z53.9 Procedure and treatment not carried out, unspecified reason (principal); E11.8 Type 2 diabetes mellitus with unspecified complications; E55.9 Vitamin D deficiency, unspecified; J96.11 Chronic respiratory failure with hypoxia; E78.5 Hyperlipidemia, unspecified ==

== ENCOUNTER → 2024-12-09 | Outpatient (CLI) | payer MEDICAID ==
[2024-12-09 11:20] LABS: BASO # 0.1 10^3/uL (0.0-0.2); BASO % 0.4 % (0.0-1.0); EOS # 0.4 10^3/uL (0.0-0.5); EOS % 3.4 % (0.0-3.0); LYMPH # 3.0 10^3/uL (1.5-5.0); LYMPH % 23.8 % (24.0-44.0); MONO # 0.9 10^3/uL (0.0-0.8); MONO % 6.9 % (2.0-8.0); NEUTROPHILS # 8.1 10^3/uL (1.5-8.5); NEUTROPHILS % 65.1 % (36.0-66.0); PLATELET COUNT, AUTOMATED 309 10^3/uL (150-450)
[2024-12-09 11:32] LABS: ESTIMATED AVERAGE GLUCOSE 177.0 MG/DL (60-110)
[2024-12-09 11:45] LABS: FREE T4 1.24 NG/DL (0.89-1.76)
[2024-12-09 11:46] LABS: TOTAL 25(OH) VITAMIN D 28.4 NG/ML (20.0-100.0)
[2024-12-09 11:51] LABS: ALT/SGPT 19 U/L (7.0-40); AST/SGOT 12 U/L (<34); CALCIUM LEVEL 9.0 MG/DL (8.5-10.1); CARBON DIOXIDE LEVEL 28 MMOL/L (20-31); CHLORIDE LEVEL 103 MMOL/L (98-107); CHOLESTEROL LEVEL 144 MG/DL (<200); CHOLESTEROL RISK RATIO 4.73 (<5); CREATININE FOR GFR 0.74 MG/DL (0.70-1.30); GLOMERULAR FILTRATION RATE > 90.0 (>56); NON-HDL-C 113.6 MG/DL; POTASSIUM SERUM 4.3 MMOL/L (3.5-5.1); SODIUM LEVEL 141 MMOL/L (136-145); TRIGLYCERIDES LEVEL 412 MG/DL (<150)
== END ==
LOC: M LAB 09:31
DX: E11.8 Type 2 diabetes mellitus with unspecified complications (principal)

== ENCOUNTER → 2024-12-19 | Outpatient (CLI) | payer MEDICAID ==
[2024-12-19 13:41] LABS: APPEARANCE, URINE CLEAR (CLEAR); BACTERIA, URINE AUTO NEGATIVE (NEGATIVE); BILIRUBIN, URINE AUTO NEGATIVE (NEGATIVE); BLOOD, URINE BLOOD NEGATIVE (NEGATIVE); GLUCOSE, URINE (UA) AUTO 3+ mg/dL (NEGATIVE); KETONE, URINE AUTO NEGATIVE (NEGATIVE); LEUKOCYTE ESTERASE, URINE AUTO NEGATIVE (NEGATIVE); NITRITE, URINE AUTO NEGATIVE (NEGATIVE); PROTEIN, URINE AUTO NEGATIVE (NEGATIVE); RBC, URINE AUTO 0 /HPF (0-3); SPECIFIC GRAVITY URINE AUTO 1.010 (1.002-1.035); SQUAMOUS EPITHELIAL CELL UR AU 0 /HPF (0-6); UROBILINOGEN, URINE AUTO 0.2 mg/dL (0.0-2.0); WBC, URINE AUTO 0 /HPF (0-3)
[2024-12-19 13:49] LABS: BASO # 0.0 10^3/uL (0.0-0.2); BASO % 0.3 % (0.0-1.0); EOS # 0.3 10^3/uL (0.0-0.5); EOS % 2.8 % (0.0-3.0); LYMPH # 3.3 10^3/uL (1.5-5.0); LYMPH % 28.8 % (24.0-44.0); MONO # 0.8 10^3/uL (0.0-0.8); MONO % 7.2 % (2.0-8.0); NEUTROPHILS # 7.0 10^3/uL (1.5-8.5); NEUTROPHILS % 60.6 % (36.0-66.0); PLATELET COUNT, AUTOMATED 329 10^3/uL (150-450)
[2024-12-19 14:14] LABS: CREATININE, URINE 29.2 MG/DL; MALB URINE SIEMENS 9.0 MG/L; MAU/CREAT RATIO 30.8 MCG/MG (0.0-30.0)
[2024-12-19 14:16] LABS: CALCIUM LEVEL 8.9 MG/DL (8.5-10.1); CARBON DIOXIDE LEVEL 28 MMOL/L (20-31); CHLORIDE LEVEL 103 MMOL/L (98-107); CREATININE FOR GFR 0.80 MG/DL (0.70-1.30); GLOMERULAR FILTRATION RATE > 90.0 (>56); MAGNESIUM LEVEL 1.7 MG/DL (1.8-2.4); PHOSPHORUS LEVEL 4.0 MG/DL (2.5-4.9); POTASSIUM SERUM 4.3 MMOL/L (3.5-5.1); SODIUM LEVEL 140 MMOL/L (136-145)
== END ==
LOC: M LAB 11:36
PROVIDERS: ATTEND Nurse Practitioner Family
DX: N18.1 Chronic kidney disease, stage 1 (principal); D63.1 Anemia in chronic kidney disease; E11.22 Type 2 diabetes mellitus with diabetic chronic kidney disease; E83.42 Hypomagnesemia

== ENCOUNTER → 2025-02-12 | Outpatient (REF) | payer MEDICAID | LOC: M SFHCPLAZ 20:12 | PROVIDERS: ATTEND Family Medicine | DX: Z53.9 Procedure and treatment not carried out, unspecified reason (principal) ==